=== PATIENT | female | born 1960 | race Caucasian/White ===

== ENCOUNTER 2023-01-14 22:55 | Emergency (ER) | payer OTHER, SELFPAY ==
--- NOTE | 2023-01-14 | ECG_ITS ---
Test Reason : CHEST PAIN Blood Pressure : / mmHG Vent. Rate : 064 BPM Atrial Rate : 064 BPM P-R Int : 156 ms QRS Dur : 092 ms QT Int : 450 ms P-R-T Axes : 084 027 037 degrees QTc Int : 464 ms Normal sinus rhythm RSR' or QR pattern in V1 suggests right ventricular conduction delay Cannot rule out Anterior infarct , age undetermined Abnormal ECG No previous ECGs available Referred By: Generic ED Physician Electronically Signed By:GISELE GONZALES
--- NOTE | ~2023-01-14 | XR_ITS ---
EXAMINATION: XR CHEST CLINICAL INFORMATION: Chest pain COMPARISON: None available. TECHNIQUE: Frontal view of the chest was obtained. FINDINGS: No significant abnormality is noted involving the heart, lungs, mediastinum, bony thorax or soft tissues. XR/XR chest 1V IMPRESSION: Unremarkable chest examination.
[2023-01-14 23:24] VITALS: BP 126/59; PULSE 60; RESP 20; TEMP 36.5; BMI 26.7
--- NOTE | 2023-01-14 23:51 | ED_ITS ---
HPI - Chest Pain General Chief Complaint: Chest Pain Stated Complaint: Chest pain Time Seen by Provider: 01/14/23 23:24 History of Present Illness HPI narrative: Patient is a 62-year-old female presents today with having chest pain. The chest pain is over the left side. It is sharp. It has been ongoing all day. Pain gets worse and gets better. Patient took 0.5 of Ativan to no relief. No history of diabetes, hypertension, high cholesterol, smoking. Patient does have a family history of coronary artery disease. Sister had an ID at the age of 52. Patient denies any diaphoresis. There is no leg swelling. No history of blood clots. Patient is from home. Last stress test was done 5 years ago Related Data Allergies Allergy/AdvReac Type Severity Reaction Status Date / Time No Known Allergies Allergy Verified 01/14/23 23:53 Review of Systems Review of Systems: Positive chest pain Yes all other systems are reviewed and are negative PMFSH Past Medical History Attestation statement: The following information was validated with the patient. Social History Social History Smoked in Last 30 Days: No Advance Directives: No Advance Directives Information Provided: No Physical Exam Vital Signs: Vital Signs: Last Vital Signs Temp 97.7 F 01/14/23 23:24 Pulse 54 01/15/23 02:51 Resp 18 01/15/23 02:51 BP 109/42 L 01/15/23 02:51 Pulse Ox 98 01/15/23 02:51 O2 Del Method Room Air 01/15/23 02:51 BMI result Body Mass Index 26.7 Appearance: Alert. Oriented X3. No acute distress. Eyes: Pupils equal, round and reactive to light. ENT: Pharynx normal. Neck: Normal inspection. Neck supple. No lymph nodes noted. No crepitus CVS: Normal heart rate and rhythm. Pulses normal. Normal S1 and S2 Respiratory: No respiratory distress. Breath sounds normal. No Wheezing. No rales Abdomen: Soft and nontender. No rigidity. No distention. good BS x4 Skin: Skin warm and dry. Normal skin color. Normal skin turgor. Extremities: No lower extremity edema. Neurovascular intact to all extremities. No Lacerations. No Rash Neuro: Oriented X 3. No motor deficit. No sensory deficit. Moving all extermities. No slurred speech Medical Decision Making Medical Decision Making MDM Narrative: Patient's chest pain atypical. Complaining of pain it is fairly constant. Has been ongoing for the last hour. Patient denies any diaphoresis. No coughing or congestion upper respiratory symptoms. My interpretation the patient's chest x- ray was negative for any acute evidence of pneumonia pneumothorax. Patient's troponin x2 sets were negative. In the setting of patient having continuous chest pain unlikely to have ACS. Currently in stable condition. Will discharge home Lab Data MDM Lab Attestation statement: I reviewed the patient's lab results. 01/15/23 00:04 01/15/23 00:04 Labs: Lab Results 01/15/23 01/15/23 01/15/23 Range/Units 00:04 00:04 00:04 WBC 5.0 (4.8-10.8) X10*3/uL RBC 3.69 L (4.20-5.50) X10*6/uL Hgb 12.1 (12.0-16.0) g/dl Hct 36.0 L (37.0-47.0) % MCV 97.6 (80.0-98.0) fL MCH 32.8 (27.0-33.0) pg MCHC 33.6 (31.0-35.0) g/dl RDW 12.2 (11.0-16.0) % Plt Count 272 (160-400) X10*3/uL MPV 8.2 L (9.4-12.3) fL Absolute Nucleated RBC 0.000 (0.0-0.012) X10*3/uL Nucleated RBC % (auto) 0.0 (0.0-0.2) /100WBC Sodium 139 (135-145) mmol/L Potassium 4.1 (3.3-5.1) mmol/L Chloride 105 (96-108) mmol/L Carbon Dioxide 27 (22-29) mmol/L Anion Gap 11 L (12-20) BUN 15 (9-16) mg/dL Creatinine 0.66 (0.5-1.4) mg/dL Estim Creat Clear Calc 87.1 Estimated GFR > 60 Random Glucose 104 (60-115) mg/dL Calcium 9.3 (8.4-10.2) mg/dL Total Bilirubin 0.5 (0.0-1.0) mg/dL AST 18 (5-31) U/L ALT 11 (0-31) U/L Alkaline Phosphatase 90 (39-117) U/L Troponin I High Sens < 2.7 (<3.5-17.0) ng/L Total Protein 6.8 (6.5-8.0) g/dL Albumin 3.9 (3.5-5.0) g/dL 01/15/23 Range/Units 03:00 WBC (4.8-10.8) X10*3/uL RBC (4.20-5.50) X10*6/uL Hgb (12.0-16.0) g/dl Hct (37.0-47.0) % MCV (80.0-98.0) fL MCH (27.0-33.0) pg MCHC (31.0-35.0) g/dl RDW (11.0-16.0) % Plt Count (160-400) X10*3/uL MPV (9.4-12.3) fL Absolute Nucleated RBC (0.0-0.012) X10*3/uL Nucleated RBC % (auto) (0.0-0.2) /100WBC Sodium (135-145) mmol/L Potassium (3.3-5.1) mmol/L Chloride (96-108) mmol/L Carbon Dioxide (22-29) mmol/L Anion Gap (12-20) BUN (9-16) mg/dL Creatinine (0.5-1.4) mg/dL Estim Creat Clear Calc Estimated GFR Random Glucose (60-115) mg/dL Calcium (8.4-10.2) mg/dL Total Bilirubin (0.0-1.0) mg/dL AST (5-31) U/L ALT (0-31) U/L Alkaline Phosphatase (39-117) U/L Troponin I High Sens 2.8 (<3.5-17.0) ng/L Total Protein (6.5-8.0) g/dL Albumin (3.5-5.0) g/dL Independent Interpretation I performed an independent interpretation of an: EKG and Plain X-Ray Interpretation: Sinus heart rate is 60 [place] QRS QT within normal limits is no acute ST segment elevation noted. Chest x-ray showed no acute pneumonia no pneumothorax Radiology Impression Discussion of test interpretation with radiology: I have reviewed the radiologist's reading. Discharge Plan Discharge Clinical Impression: Chest pain Patient Disposition: Home, Self-Care Instructions: Chest Pain (DC) Referrals: Sachin Keller MD [Primary Care Provider] - Atul Avitia MD [Physician] -
[2023-01-15 00:11] LABS: Hemoglobin 12.1 g/dl (12.0-16.0); Mean Corpuscular HGB Conc 33.6 g/dl (31.0-35.0); Mean Corpuscular Hemoglobin 32.8 pg (27.0-33.0); Mean Corpuscular Volume 97.6 fL (80.0-98.0); Mean Platelet Volume 8.2 fL (9.4-12.3); Platelet Count 272 X10*3/uL (160-400); Red Blood Count 3.69 X10*6/uL (4.20-5.50); Red Cell Distribution Width 12.2 % (11.0-16.0)
[2023-01-15 00:25] LABS: Alanine Aminotransferase 11 U/L (0-31); Albumin Level 3.9 g/dL (3.5-5.0); Alkaline Phosphatase 90 U/L (39-117); Anion Gap 11 (12-20); Aspartate Amino Transferase 18 U/L (5-31); Bilirubin Total 0.5 mg/dL (0.0-1.0); Blood Urea Nitrogen 15 mg/dL (9-16); Calcium 9.3 mg/dL (8.4-10.2); Carbon Dioxide 27 mmol/L (22-29); Chloride 105 mmol/L (96-108); Creatinine Clr Calc Pharmacy 87.1; Estimated Glomerular Filt Rate > 60; Glucose Random 104 mg/dL (60-115); Potassium 4.1 mmol/L (3.3-5.1); Sodium 139 mmol/L (135-145); Total Protein 6.8 g/dL (6.5-8.0)
[2023-01-15 00:31] LABS: Troponin-I High Sensitivity < 2.7 ng/L (<3.5-17.0)
[2023-01-15 02:51] VITALS: BP 109/42; PULSE 54; RESP 18; O2SAT 98
[2023-01-15 03:29] LABS: Troponin-I High Sensitivity 2.8 ng/L (<3.5-17.0)
== END 2023-01-15 04:01 | disposition home or self-care (01) ==
PROVIDERS: Emergency Provider Emergency Medicine Emergency Medical Services; PCP Internal Medicine
DX: R07.89 Other chest pain (principal); Z79.899 Other long term (current) drug therapy
CPT/HCPCS: 36415; 71045; 80053; 84484; 85027; 93005; 99283; 99285

== ENCOUNTER 2023-03-20 06:57 | Emergency (ER) | payer OTHER, SELFPAY ==
--- NOTE | ~2023-03-20 | XR_ITS ---
EXAMINATION: XR CHEST CLINICAL INFORMATION: Chest pain shortness of breath COMPARISON: Prior chest x-ray 01/14/2023 TECHNIQUE: Frontal view of the chest was obtained. FINDINGS: Linear opacity overlies the left upper lung unchanged. Lungs otherwise clear. Cardiomediastinal silhouette normal. Bone and soft tissues unremarkable. XR/XR chest 1V IMPRESSION: 1. No acute disease. 2. Linear opacity left upper lung unchanged. Likely scarring or atelectasis
--- NOTE | 2023-03-20 07:08 | ECG_ITS ---
Test Reason : CP Blood Pressure : / mmHG Vent. Rate : 065 BPM Atrial Rate : 065 BPM P-R Int : 162 ms QRS Dur : 088 ms QT Int : 458 ms P-R-T Axes : 073 052 049 degrees QTc Int : 476 ms Normal sinus rhythm RSR' or QR pattern in V1 suggests right ventricular conduction delay Abnormal ECG When compared with ECG of 14-JAN-2023 23:07, No significant change was found Referred By: Jeffrey Wilson Electronically Signed By:FUNMILAYO ANDUJAR
[2023-03-20 07:11] VITALS: BP 114/68; BP 125/53; PULSE 55; PULSE 63; RESP 16; O2SAT 100; O2SAT 97; BMI 27.5
--- NOTE | 2023-03-20 07:11 | ED_ITS ---
HPI - General Adult General Chief complaint: Dizziness Stated complaint: abd pain, dizziness Time Seen by Provider: 03/20/23 07:04 Source: patient Mode of arrival: EMS Limitations: no limitations History of Present Illness HPI narrative: This is 62 years old of female presented to the emergency department with mult iple somatic complaints including abdominal pain dizziness generalized malaise she states that she feels shaky all over. Symptoms started early this morning. Denies any fever chills chest pain shortness of breath vomiting or diarrhea. She has history of generalized anxiety disorder she takes sertraline. Onset (ago): hour(s) (3) Radiation: non-radiation Severity: moderate Pain Consistency: constant Relieving factors: none Exacerbating factors: none Associated symptoms: denies other symptoms Related Data Allergies Allergy/AdvReac Type Severity Reaction Status Date / Time No Known Allergies Allergy Verified 01/14/23 23:53 Review of Systems Review of Systems: Yes all other systems are reviewed and are negative ENT: Reports system reviewed and no additional complaints, except as documented Cardiovascular: Cardiovascular: Denies palpitations and Denies dyspnea on exertion Respiratory: Respiratory: Denies dyspnea on exertion Gastrointestinal: Gastrointestinal: Reports no additional gastrointestinal complaints Neurologic: Reports system reviewed and no additional complaints, except as documented Endocrine: Endocrine: Denies palpitations PMFSH Past Medical History PMFSH Narrative: Anxiety disorder, history of atypical chest pain Social History Social History Smoked in Last 30 Days: No Use of substances other than those prescribed or required for medical reasons: No Advance Directives: No Advance Directives Information Provided: Yes Physical Exam ED Vital Signs: Vital Signs - 24 hr 03/20/23 07:11 03/20/23 10:29 Pulse Rate 55 65 Respiratory Rate 16 15 Blood Pressure 125/53 L 112/51 L Pulse Oximetry 97 97 Oxygen Delivery Method Room Air Room Air BMI result Body Mass Index 27.5 Const General: cooperative, healthy appearing, comfortable, no acute distress, well developed, alert, awake and Physically active Nutritional Appearance: average body habitus Orientation/consciousness: patient oriented x3 Limitations: no limitations HENMT Head: Yes normal to inspection Face and sinus: Yes normal facial exam Throat: Yes posterior oropharynx normal Neck Neck: Yes normal visual inspection Chest Chest palpation & inspection: normal inspection of the chest Resp Effort & Inspection: normal respiratory effort Auscultation: clear to auscultation bilaterally Cardio Jugular venous distension: no JVD Rate: regular rate Rhythm: regular rhythm GI Inspection: Yes normal to inspection Palpation (GI): Soft to palpation, not firm, nontender and no guarding Percussion: Yes normal to percussion Skin General skin exam: no rashes or lesions noted Lesions: no lesions Rashes: no rashes Neuro General: patient oriented x3 Coordination: [id number] test normal Romberg Test: Negative Course Reevaluation(s) Reevaluation #1: Patient was re-examined at this time with dramatic improvement after lorazepam. She has no complaint at this time labs okay she can be discharged home Time: 10:07 Medications Administered Discontinued Medications Generic Name Dose Route Start Last Admin Trade Name Freq PRN Reason Stop Dose Admin Sodium Chloride 1,000 mls @ 999 mls/hr 03/20/23 07:45 03/20/23 10:25 Ns IVCONT 03/20/23 08:45 Infused .Q1H1M GM Infusion Lorazepam 0.5 mg 03/20/23 07:08 03/20/23 07:25 Lorazepam 2 Mg/Ml Vial IVPUSH 03/20/23 07:09 0.5 mg ONCE ONE Administration Medical Decision Making Medical Decision Making [facility] Narrative: Patient presenting dizziness weakness symptoms completely resolved of lorazepam clinical picture was consistent with anxiety Differential Diagnosis Differential Diagnoses: The differential diagnosis associated with the presentation includes viral illness/panick attack/ colitis/diverticulitis Admission/Observation Consideration of admission/observation: Escalation of care including admi ssion/observation considered Lab Data [facility] Lab Attestation statement: I reviewed the patient's lab results. 03/20/23 07:37 Labs: Lab Results 03/20/23 03/20/23 03/20/23 Range/Units 07:37 07:37 07:37 WBC 4.1 L (4.8-10.8) X10*3/uL RBC 3.89 L (4.20-5.50) X10*6/uL Hgb 12.9 (12.0-16.0) g/dl Hct 38.0 (37.0-47.0) % MCV 97.7 (80.0-98.0) fL MCH 33.2 H (27.0-33.0) pg MCHC 33.9 (31.0-35.0) g/dl RDW 12.1 (11.0-16.0) % Plt Count 309 (160-400) X10*3/uL MPV 8.4 L (9.4-12.3) fL Immature Gran % (Auto) 0.0 (0.0-0.4) % Neut % (Auto) 39.7 L (45-73) % Lymph % (Auto) 44.3 H (20-40) % [place] % (Auto) 12.6 H (2-11) % Eos % (Auto) 2.2 (0-4) % Baso % (Auto) 1.2 (0-2) % Lymph # (Auto) 1.8 (1.2-4.9) X10*3/uL [place] # (Auto) 0.5 (0.1-1.2) X10*3/uL Eos # (Auto) 0.1 (0.0-0.4) X10*3/uL Baso # (Auto) 0.1 (0.0-0.2) X10*3/uL Abs Immat Gran (auto) 0.00 (0.00-0.03) X10*3/uL Absolute Neuts (auto) 1.6 L (2.0-8.3) x10*3/uL Absolute Nucleated RBC 0.000 (0.0-0.012) X10*3/uL Nucleated RBC % (auto) 0.0 (0.0-0.2) /100WBC Sodium 140 (135-145) mmol/L Potassium 4.6 (3.3-5.1) mmol/L Chloride 105 (96-108) mmol/L Carbon Dioxide 28 (22-29) mmol/L Anion Gap 12 (12-20) BUN 13 (9-16) mg/dL Creatinine 0.71 (0.5-1.4) mg/dL Estim Creat Clear Calc 79.1 Estimated GFR > 60 Random Glucose 101 (60-115) mg/dL Calcium 9.6 (8.4-10.2) mg/dL Total Bilirubin 0.6 (0.0-1.0) mg/dL AST 20 (5-31) U/L ALT 16 (0-31) U/L Alkaline Phosphatase 86 (39-117) U/L Troponin I High Sens < 2.7 (<3.5-17.0) ng/L Total Protein 7.0 (6.5-8.0) g/dL Albumin 4.1 (3.5-5.0) g/dL Independent Interpretation I performed an independent interpretation of an: EKG and Plain X-Ray Interpretation: Normal sinus rhythm a rate [address]-T changes normal cxr Radiology Impression Discussion of test interpretation with radiology: I have reviewed the radiologist's reading. Radiologist Impression: EXAMINATION: XR CHEST CLINICAL INFORMATION: Chest pain shortness of breath COMPARISON: Prior chest x-ray 01/14/2023 TECHNIQUE: Frontal view of the chest was obtained. FINDINGS: Linear opacity overlies the left upper lung unchanged. Lungs otherwise clear. Cardiomediastinal silhouette normal. Bone and soft tissues unremarkable. XR/XR chest 1V IMPRESSION: 1.? No acute disease. 2.? Linear opacity left upper lung unchanged. Likely scarring or atelectasis ? Dictated By: Silvano Blanchard MD Signed By: <Electronically signed by Silvano Blanchard MD in OV> 03/20/23 0753 Discharge Plan Discharge Clinical Impression: Anxiety Patient Disposition: Home, Self-Care Instructions: Anxiety (ED) Additional Instructions: Follow-up with your primary care physician return if you worse any concern Referrals: PhysicianWarren [Primary Care Provider] - 2 days Interventions: ED Discharge Assessment Last Done: 03/20/23 10:35 Discharge Date/Time: 03/20/23 10:36
[2023-03-20] MEDS: LORazepam 2 MG/ML VIAL 0.5 MG IVPUSH (07:25)
[2023-03-20 07:41] LABS: MANUAL DIFF FLAG NO
[2023-03-20] MEDS: 0.9 % Sodium Chloride 1,000 ML 999 ML IVCONT (07:51)
--- NOTE | 2023-03-20 07:51 | PC.NURSE ---
pt axox4, vss, sinus cristian on monitor 51 bpm, sats 98% RA, skin wpd, neuros intact. pt arrived via ems; reports LEUNG onset last night; dizziness/upper abd. pain onset 0600 today. pt reports feeling jittery/shaky; hx anxiety/panic attacks states this is different. +bs x 4. no abd. distention/tenderness noted. cap refill <3 secs. respirations even and unlabored. IVF infusing, labs drawn; awaiting results. pt denies questions/concerns at this time. call guy within reach.
[2023-03-20 07:57] LABS: Basophils Absolute Auto 0.1 X10*3/uL (0.0-0.2); Basophils Percent Auto 1.2 % (0-2); Eosinophils Absolute Auto 0.1 X10*3/uL (0.0-0.4); Eosinophils Percent Auto 2.2 % (0-4); Hemoglobin 12.9 g/dl (12.0-16.0); Lymphocytes Absolute Auto 1.8 X10*3/uL (1.2-4.9); Lymphocytes Percent Auto 44.3 % (20-40); Mean Corpuscular HGB Conc 33.9 g/dl (31.0-35.0); Mean Corpuscular Hemoglobin 33.2 pg (27.0-33.0); Mean Corpuscular Volume 97.7 fL (80.0-98.0); Mean Platelet Volume 8.4 fL (9.4-12.3); Monocytes Absolute Auto 0.5 X10*3/uL (0.1-1.2); Monocytes Percent Auto 12.6 % (2-11); Neutrophils Absolute Auto 1.6 x10*3/uL (2.0-8.3); Neutrophils Percent Auto 39.7 % (45-73); Platelet Count 309 X10*3/uL (160-400); Red Blood Count 3.89 X10*6/uL (4.20-5.50); Red Cell Distribution Width 12.1 % (11.0-16.0); White Blood Count 4.1 X10*3/uL (4.8-10.8)
[2023-03-20 08:00] LABS: Alanine Aminotransferase 16 U/L (0-31); Albumin Level 4.1 g/dL (3.5-5.0); Alkaline Phosphatase 86 U/L (39-117); Anion Gap 12 (12-20); Aspartate Amino Transferase 20 U/L (5-31); Bilirubin Total 0.6 mg/dL (0.0-1.0); Blood Urea Nitrogen 13 mg/dL (9-16); Calcium 9.6 mg/dL (8.4-10.2); Carbon Dioxide 28 mmol/L (22-29); Chloride 105 mmol/L (96-108); Creatinine Clr Calc Pharmacy 79.1; Estimated Glomerular Filt Rate > 60; Glucose Random 101 mg/dL (60-115); Potassium 4.6 mmol/L (3.3-5.1); Sodium 140 mmol/L (135-145)
[2023-03-20 08:03] LABS: Troponin-I High Sensitivity < 2.7 ng/L (<3.5-17.0)
[2023-03-20 10:29] VITALS: BP 112/51; PULSE 65; RESP 15; O2SAT 97
== END 2023-03-20 10:36 | disposition home or self-care (01) ==
PROVIDERS: Emergency Provider Emergency Medicine
DX: F41.9 Anxiety disorder, unspecified (principal); R10.9 Unspecified abdominal pain; R07.9 Chest pain, unspecified; R06.02 Shortness of breath
CPT/HCPCS: 36415; 71045; 80053; 84484; 85025; 93005; 96361; 96374; 99284; 99285; J2060

== ENCOUNTER 2023-07-08 02:13 | Emergency (ER) | payer OTHER, SELFPAY ==
--- NOTE | ~2023-07-08 | XR_ITS ---
EXAMINATION: XR ABDOMEN KUB CLINICAL INDICATION: Constipation COMPARISON: None available. TECHNIQUE: AP view of the abdomen. FINDINGS: The bowel gas pattern is normal with no evidence of ileus or obstruction. Large stool throughout the left colon and rectum. No unusual soft tissue calcifications are noted. The bones are unremarkable. XR/XR KUB IMPRESSION: * Moderate to severe constipation, predominantly left colonic. * No evidence of obstruction.
[2023-07-08 02:17] VITALS: BP 130/53; PULSE 72; RESP 18; TEMP 36.8; O2SAT 97; BMI 27.6
[2023-07-08 02:38] LABS: Basophils Percent Auto 0.9 % (0-2); Eosinophils Absolute Auto 0.1 X10*3/uL (0.0-0.4); Eosinophils Percent Auto 1.8 % (0-4); Hematocrit 39.2 % (37.0-47.0); Hemoglobin 13.4 g/dl (12.0-16.0); Imm Gran Abs Auto 0.01 X10*3/uL (0.00-0.03); Imm Gran Pct Auto 0.2 % (0.0-0.4); Lymphocytes Absolute Auto 1.5 X10*3/uL (1.2-4.9); Lymphocytes Percent Auto 34.8 % (20-40); MANUAL DIFF FLAG NO; Mean Corpuscular HGB Conc 34.2 g/dl (31.0-35.0); Mean Corpuscular Hemoglobin 34.1 pg (27.0-33.0); Mean Corpuscular Volume 99.7 fL (80.0-98.0); Mean Platelet Volume 8.2 fL (9.4-12.3); Monocytes Absolute Auto 0.5 X10*3/uL (0.1-1.2); Monocytes Percent Auto 12.2 % (2-11); Neutrophils Absolute Auto 2.2 x10*3/uL (2.0-8.3); Neutrophils Percent Auto 50.1 % (45-73); Platelet Count 301 X10*3/uL (160-400); Red Blood Count 3.93 X10*6/uL (4.20-5.50); Red Cell Distribution Width 11.9 % (11.0-16.0); White Blood Count 4.4 X10*3/uL (4.8-10.8)
--- NOTE | 2023-07-08 02:38 | ED.ABDPAIN ---
HPI - Abdominal Pain General Chief Complaint: Abdominal Pain Stated Complaint: no bowel movement in 8days Time Seen by Provider: 07/08/23 02:33 Source: patient Mode of arrival: ambulatory Limitations: no limitations History of Present Illness HPI narrative: Patient comes to the emergency room complaining of anal pain/bleeding hemorrhoids for 4 days and constipation for 1 week. Patient states that the hemorrhoids have gotten worse due to significant straining. Patient states that about 10 days ago, patient had 3 days of constant diarrhea, did not take anything for diarrhea, self resolved. Then patient had constipation. Patient states that she has not able to move her bowels in over 8 days and now she feels very bloated and very uncomfortable. Patient denies nausea or vomiting, patient able to pass gas, no fever chills, no UTI symptoms Related Data Previous Rx's Medication Instructions Recorded sodium phosphates 19 gram-7 118 ml [place] DAILY PRN constipation 07/08/23 gram/118 mL enema (Fleet Enema) #133 mL Allergies Allergy/AdvReac Type Severity Reaction Status Date / Time No Known Allergies Allergy Verified 07/08/23 02:38 Review of Systems Review of Systems Constitutional : No Weight loss, No Fever, No Chills, No Night Sweats, No Fatigue, No Malaise ENT/Mouth : No Hearing loss, No Ear Pain, No Nasal Congestion, No Sinus Pain, No Hoarseness, No sore throat, No Rhinorrhea, No Swallowing Difficulty Eyes: No Eye Pain, No Swelling, No Redness, No Foreign Body, No Discharge, No Vision Changes Cardiovascular : No Chest Pain, No SOB, No Dyspnea on Exertion, No Orthopnea, No Edema, No Palpitations Respiratory : No Cough, No Sputum, No Wheezing, No Smoke Exposure, No Dyspnea Gastrointestinal : No Nausea, No Vomiting, diarrhea self-resolved a week ago, now complaining of constipation, complaining of diffuse abdominal discomfort , c/o external hemorrhoids Genitourinary : no irregular bleeding, No Dysuria, No Urinary Frequency, No Hematuria, No Urinary Incontinence, No Urgency, No Flank Pain, No Urinary Flow Changes, No Hesitancy Musculoskeletal : No joint pain, No Myalgias, No Joint Swelling Skin : No Skin Lesions, No rash Neuro : No Weakness, No Numbness, No Paresthesias, No Loss of Consciousness, No Dizziness, No Headache Psych : No Anxiety/Panic, No Depression, No SI/HI/AH/VH, No Social Issues, Heme/Lymph: No Bruising, No Bleeding,No Lymphadenopathy Endocrine : No Polyuria, No Polydipsia, No Temperature Intolerance [facility] Social History Social History Alcohol intake: current Alcohol intake frequency: holidays/special occasions only Smoked in Last 30 Days: No Use of substances other than those prescribed or required for medical reasons: No Advance Directives: No Advance Directives Information Provided: Yes Patient : No Physical Exam ED Vital Signs: Vital Signs - 24 hr 07/08/23 02:17 Temperature 98.2 F Pulse Rate 72 Respiratory Rate 18 Blood Pressure 130/53 L Pulse Oximetry 97 Oxygen Delivery Method Room Air BMI result Body Mass Index 27.6 Const Other: Appearance: Alert. Oriented X3. No acute distress. Eyes: Pupils equal, round and reactive to light. ENT: Pharynx normal. Neck: Normal inspection. Neck supple. No lymph nodes noted. No crepitus CVS: Normal heart rate and rhythm. Pulses normal. Normal S1 and S2 Respiratory: No respiratory distress. Breath sounds normal. No Wheezing. No rales Abdomen: Soft and nontender. No rigidity. No distention. On exam, patient does have external hemorrhoids but they are not thrombosed or bleeding Skin: Skin warm and dry. Normal skin color. Normal skin turgor. Extremities: No lower extremity edema. No Lacerations. No Rash Neuro: Oriented X 3. No motor deficit. No sensory deficit. Moving all extremities. No slurred speech. CN 2 through 12 grossly intact Psych: calm, cooperative, teary Course Course Course Narrative: -labs and KUB pending -if KUB + constipation, we'll try fleet enema -applying 5% lidocaine topical to anus for pain relief Medical Decision Making Medical Decision Making [facility] Narrative: -patient had 2 bowel movements, overall patient is feeling better. -my interpretation of KUB, no signs of small-bowel obstruction -patient was given 5% lidocaine topical for symptomatic relief during bowel movements Differential Diagnosis Differential Diagnoses: The differential diagnosis associated with the presentation includes (Constipation, hemorrhoids, SBO) Lab Data MDM Lab Attestation statement: I reviewed the patient's lab results. 07/08/23 02:32 07/08/23 02:32 Labs: Lab Results 07/08/23 Range/Units 02:32 WBC 4.4 L (4.8-10.8) X10*3/uL RBC 3.93 L (4.20-5.50) X10*6/uL Hgb 13.4 (12.0-16.0) g/dl Hct 39.2 (37.0-47.0) % MCV 99.7 H (80.0-98.0) fL MCH 34.1 H (27.0-33.0) pg MCHC 34.2 (31.0-35.0) g/dl RDW 11.9 (11.0-16.0) % Plt Count 301 (160-400) X10*3/uL MPV 8.2 L (9.4-12.3) fL Immature Gran % (Auto) 0.2 (0.0-0.4) % Neut % (Auto) 50.1 (45-73) % Lymph % (Auto) 34.8 (20-40) % [place] % (Auto) 12.2 H (2-11) % Eos % (Auto) 1.8 (0-4) % Baso % (Auto) 0.9 (0-2) % Lymph # (Auto) 1.5 (1.2-4.9) X10*3/uL [place] # (Auto) 0.5 (0.1-1.2) X10*3/uL Eos # (Auto) 0.1 (0.0-0.4) X10*3/uL Baso # (Auto) 0.0 (0.0-0.2) X10*3/uL Abs Immat Gran (auto) 0.01 (0.00-0.03) X10*3/uL Absolute Neuts (auto) 2.2 (2.0-8.3) x10*3/uL Absolute Nucleated RBC 0.000 (0.0-0.012) X10*3/uL Nucleated RBC % (auto) 0.0 (0.0-0.2) /100WBC Sodium 139 (135-145) mmol/L Potassium 4.1 (3.3-5.1) mmol/L Chloride 102 (96-108) mmol/L Carbon Dioxide 29 (22-29) mmol/L Anion Gap 12 (12-20) BUN 10 (9-16) mg/dL Creatinine 0.78 (0.5-1.4) mg/dL Estim Creat Clear Calc 71.2 Estimated GFR > 60 Random Glucose 130 H (60-115) mg/dL Calcium 9.8 (8.4-10.2) mg/dL Total Bilirubin 0.7 (0.0-1.0) mg/dL AST 18 (5-31) U/L ALT 12 (0-31) U/L Alkaline Phosphatase 96 (39-117) U/L Total Protein 7.7 (6.5-8.0) g/dL Albumin 4.4 (3.5-5.0) g/dL Lipase 15 (8-78) U/L Independent Interpretation I performed an independent interpretation of an: Plain X-Ray Radiology Impression Discussion of test interpretation with radiology: I have reviewed the radiologist's reading. Radiologist Impression: FINDINGS: The bowel gas pattern is normal with no evidence of ileus or obstruction. Large stool throughout the left colon and rectum. No unusual soft tissue calcifications are noted. The bones are unremarkable. XR/XR KUB IMPRESSION: * Moderate to severe constipation, predominantly left colonic. * No evidence of obstruction. Medications Administered Discontinued Medications Generic Name Dose Route Start Last Admin Trade Name Freq PRN Reason Stop Dose Admin Lidocaine 1 appl 07/08/23 02:37 07/08/23 03:25 Lidocaine 5 % Ointment 35 Gm TOPICAL 07/08/23 02:38 1 appl ONCE ONE Administration Protocol Sodium Biphosphate/Sodium Phosphate 133 ml 07/08/23 02:38 07/08/23 03:51 Sodium Phosphate,[place]es-Dibasic 133 Ml Enema [place] 07/08/23 02:39 133 ml ONCE ONE Administration Discharge Plan Discharge Clinical Impression: Constipation Patient Disposition: Home, Self-Care Instructions: Constipation (ED), Hemorrhoids (ED) Additional Instructions: Apply a generous amount of 5% lidocaine 15 minutes before a bowel movement. Please follow-up with your primary care physician tomorrow. If you have any worsening or new symptoms, please return to the emergency room or call 911 Prescriptions: New Fleet Enema 19-7 gram/118 mL enema 118 ml [place] DAILY PRN (Reason: constipation) Qty: 133 2RF
--- OUTSIDE RECORDS SUMMARY | 2023-07-08 03:01 | XMS_ITS | Continuity of Care Document ---
Author Name Unknown Organization [facility] Address [address] [place] [address]- Care Team Providers Care [employer] Name Role Phone Sachin Keller MD Primary Care Physician [place] [facility] [place]14[place] - 01/20/[address] [id number] Discharge Disposition: A-D/C Home Attending Physician: Sachin Keller MD Admitting Physician: Sachin Keller MD Referring Physician: Marshall Godfrey MD Allergies, Adverse Reactions, Alerts No Known Allergies Immunizations Given and Recorded Vaccine Date Status Refusal Reason SARS-CoV-2 (COVID-19) mRNA BNT-162b2 vac 10/01/20 Given SARS-CoV-2 (COVID-19) mRNA BNT-162b2 vac 09/10/20 Given Medications B-12 1000 mcg oral tablet 1 tablet = 1,000 mcg, By Mouth, Daily, 0 Refills, Maintenance, 11/16/19 11:00:00 EDT Start Date: 11/16/19 Status: Ordered duloxetine 60 mg oral enteric coated capsule 1 capsule = 60 mg, By Mouth, Daily, do not crush or chew, 0 Refills, Maintenance, 11/16/19 10:59:00EDT, CR Capsule Start Date: 11/16/19 Status: Ordered ibuprofen 800 mg oral tablet 800 mg, 1, tablet, By Mouth, 3 times a day, # 90 tablet, Refills 0, Maintenance, 11/16/19 10:59:00 EDT Start Date: 11/16/19 Status: Ordered Multi Vitamin+ 1 tablet, By Mouth, Daily, 0 Refills, Maintenance, 08/07/18 10:39:52 EST Start Date: 08/07/18 Status: Ordered pantoprazole 40 mg oral delayed release tablet 1 tablet = 40 mg, By Mouth, Daily, # 30 tablet, 0 Refills, Maintenance, 11/16/19 10:59:00 EDT, EC Tablet Start Date: 11/16/19 Status: Ordered
--- OUTSIDE RECORDS SUMMARY | 2023-07-08 03:01 | XMS_ITS | Continuity of Care Document ---
Author Name Unknown Organization [facility] Address [address] [place] [address]- Care Team Providers Care Real Estate Recruiter Name Role Phone Sachin Keller MD Primary Care Physician [phone] [facility] ACCT R [id number] Date(s): 02/01/22 - 03/06/[address] [address] Attending Physician: Sachin Keller MD Admitting Physician: Sachin Keller MD Allergies, Adverse Reactions, Alerts No Known [...]
--- OUTSIDE RECORDS SUMMARY | 2023-07-08 03:01 | XMS_ITS | Continuity of Care Document ---
Author Name Unknown Organization [facility] Address [address] [place] [id number]- Care Team Providers Care Retail Maintenance Technician Name Role Phone Sachin Keller MD Primary Care Physician Encounter [facility] Date(s): 01/10/20 - 01/10/[address] [address]- [facility] Encounter Diagnosis Chest pain(Final) - 01/10/20 Discharge Disposition: A-D/C Home Attending Physician: Levi Diaz MD Admitting Physician: Levi Diaz MD Referring Physician: Not on Staff, Referring MD Allergies, Adverse Reactions, Alerts Substance Reaction Severity Status NKA Active Medications B-12 1000 mcg oral tablet 1 [...] EC Tablet Start Date: 11/16/19 Status: Ordered Results Radiology Reports * Exam Date Time Procedure Performing Provider Status 01/10/20 1:48 PM Chest 2 Views Frontal and Lat Fatmata Tyler; Auth (Verified) Notes: (Chest 2 Views Frontal and Lat) Reason For Exam: Angina RESULT: Chest 2 Views Frontal and Lat Chest 2 Views Frontal and Lat Refer to EMR; Reason: Angina; Clinical Question(s): CHF; Hx of Present Illness: pt reports midsternal epigastric CP radiating to left anterior chest, non reproducible. Relieved with Nitro. dizziness after fentanyl administered.; Other Objective Findings: AOx3, answers appropriately. COMPARISON: None. FINDINGS: LINES AND TUBES: None. LUNGS AND PLEURA: Clear lungs. Normal pulmonary vascularity. No pleural effusion. No pneumothorax. HEART, MEDIASTINUM AND NANDO: Heart is normal in size. Normal mediastinal and hilar contour. BONES AND SOFT TISSUES: No acute abnormality. IMPRESSION: No acute abnormality. WSN: [id number] Ordering Physician: Marshall Almaraz Dictated By: Jason Bobo DO Dictated Date/Time: 01/10/20 1:50 pm Reviewed By: Jason Bobo DO Signed By: Jason Bobo DO Signed Date/Time: 01/10/20 1:50 pm Transcribed By: ERIKA Transcribed Date/Time: 01/10/20 1:50 pm Vital Signs Most recent to oldest [Reference Range]: 1 2 3 Oxygen Saturation [94-100 %] 98 % (01/10/20 7:28 PM) 99 % (01/10/20 7:00 PM) 96 % (01/10/20 5:54 PM) Pulse Rate [55-90 bpm] 68 bpm (01/10/20 7:28 PM) 67 bpm (01/10/20 7:00 PM) 75 bpm (01/10/20 5:54 PM) Blood Pressure [90-138/55-84 mm Hg] 127/72mm Hg (01/10/20 7:28 PM) 106/56mm Hg (01/10/20 7:00 PM) 114/59mm Hg (01/10/20 5:54 PM) Respiratory Rate [16-30 br/min] 19 br/min (01/10/20 7:28 PM) 15 br/min *L* (01/10/20 7:00 PM) 18 br/min (01/10/20 5:54 PM) Temperature [96.8-100.4 DegF] 98.4 DegF (01/10/20 7:28 PM) 98.3 DegF (01/10/20 7:00 PM) 98.7 DegF (01/10/20 4:12 PM) Liters per Minute 0 L/min (01/10/20 4:12 PM) 0 L/min (01/10/20 1:07 PM) Mode of Delivery (Oxygen) Room air (01/10/20 7:28 PM) Room air (01/10/20 7:00 PM) Room air (01/10/20 5:54 PM) Blood pressure sites Arm, right (01/10/20 7:28 PM) Arm, right (01/10/20 7:00 PM) Arm, right (01/10/20 5:54 PM) Temperature Route Oral (01/10/20 7:28 PM) Oral (01/10/20 7:00 PM) Oral (01/10/20 4:12 PM)
--- OUTSIDE RECORDS SUMMARY | 2023-07-08 03:01 | XMS_ITS | Continuity of Care Document ---
Author Name Unknown Organization [facility] Address [address] [place] [address]- Care Team Providers Care Syrup Maker Cook Name Role Phone Sachin Keller MD Primary Care Physician Encounter [facility] ACCT R [id number] Date(s): 03/16/22 - 04/15/[address] [address] Attending Physician: Rudolph Bucio Admitting Physician: AdmRudolph greene Referring Physician: AdmtrRudolph Allergies, Adverse Reactions, Alerts No Known Allergies [...] EC Tablet Start Date: 11/16/19 Status: Ordered Care Team Personnel Name: Sachin Keller MD Address: [address] [place], [place] [address]
--- OUTSIDE RECORDS SUMMARY | 2023-07-08 03:01 | XMS_ITS | Continuity of Care Document ---
Author Name Unknown Organization [facility] Address [address] [place] [address]- Care Team Providers Care Quality Audit Representative Name Role Phone Sachin Keller MD Primary Care Physician [phone] Encounter [facility] ACCT R [id number] Date(s): 12/24/21 - 01/23/[address] [address]- Attending Physician: Rudolph Bucio Admitting Physician: AdmRudolph [...]
--- OUTSIDE RECORDS SUMMARY | 2023-07-08 03:01 | XMS_ITS | Continuity of Care Document ---
Author Name Unknown Organization [facility] Address [address] [place] [address]- Care Team Providers Care Instructor Watch Assembly Name Role Phone Sachin Keller MD Primary Care Physician [phone] Encounter [facility] Date(s): 02/01/22 - 05/11/[address] [address]- Encounter Diagnosis Cervicalgia(Final) - Discharge Disposition: A-D/C Home Attending Physician: Marshall Godfrey MD Admitting Physician: Marshall Godfrey MD Referring Physician: Marshall Godfrey MD Allergies, [...] EC Tablet Start Date: 11/16/19 Status: Ordered Patient Care team information Personnel Name: Sachin Keller MD Address: Address: [address] [place] [address]
[2023-07-08 03:03] LABS: Alanine Aminotransferase 12 U/L (0-31); Albumin Level 4.4 g/dL (3.5-5.0); Alkaline Phosphatase 96 U/L (39-117); Anion Gap 12 (12-20); Aspartate Amino Transferase 18 U/L (5-31); Bilirubin Total 0.7 mg/dL (0.0-1.0); Blood Urea Nitrogen 10 mg/dL (9-16); Calcium 9.8 mg/dL (8.4-10.2); Carbon Dioxide 29 mmol/L (22-29); Chloride 102 mmol/L (96-108); Creatinine Clr Calc Pharmacy 71.2; Estimated Glomerular Filt Rate > 60; Glucose Random 130 mg/dL (60-115); Lipase 15 U/L (8-78); Potassium 4.1 mmol/L (3.3-5.1); Sodium 139 mmol/L (135-145); Total Protein 7.7 g/dL (6.5-8.0)
[2023-07-08] MEDS: Lidocaine 5 % Ointment 35 GM 1 APPL TOPICAL (03:25)
[2023-07-08] MEDS: Sodium Phosphate,Mono-Dibasic 133 ML ENEMA PR (03:51)
--- NOTE | 2023-07-08 04:28 | PC.NURSE ---
Pt A&Ox3, reports lower ABD pain and rectal pain. Reports no BM in 8 days with no effectiveness from home med taken at home. Pt given enema, tolerated well. Pt ambulated to independently with steady gait. Reports having a small BM.
[2023-07-08 05:50] VITALS: BP 123/56; PULSE 63; RESP 16; O2SAT 97
== END 2023-07-08 05:52 | disposition home or self-care (01) ==
PROVIDERS: Emergency Provider Emergency Medicine; PCP Internal Medicine
DX: K64.9 Unspecified hemorrhoids (principal); K59.00 Constipation, unspecified; Z79.899 Other long term (current) drug therapy
CPT/HCPCS: 36415; 74018; 80053; 83690; 85025; 99283; 99284

== ENCOUNTER 2024-12-19 08:10 | Emergency (ER) | payer OTHER, MEDICARE, SELFPAY ==
[2024-12-19] VITALS (7 sets, daily range): BP systolic 100–123; BP diastolic 47–62; PULSE 60–89; RESP 16–18; TEMP 36.8–36.9; O2SAT 96–98; BMI 26.1
--- NOTE | ~2024-12-19 | CT_ITS ---
EXAMINATION: CT HEAD WITHOUT CONTRAST CLINICAL INFORMATION: Altered mental status, confusion. COMPARISON: None available. TECHNIQUE: Contiguous axial imaging was performed from the skull base to vertex without intravenous administration of contrast. This CT examination was performed using dose optimization techniques as appropriate, variously including the following: *Automated exposure control *Adjustment of mA and/or kV according to patient size (this includes techniques or standardized protocols for targeted exams where dose is matched to indication/reason for exam; i.e. extremities or head) *Use of iterative reconstruction technique FINDINGS: There is no evidence of intracranial hemorrhage or extra-axial fluid collection. There is no mass effect, or edema. No CT evidence of acute territorial infarct. Ventricles, sulci, and cisterns are normal in size and configuration for patient age. No hydrocephalus. No midline shift. Negative hyperdense MCA sign. Negative insular ribbon sign. No significant white matter abnormality. Normal pituitary. Globes and orbital contents image normally. No extracranial soft tissue abnormalities. The paranasal sinuses, mastoid air cells, and tympanic cavities are normally aerated. No suspicious bony abnormalities. There are no acute fractures evident. CT/CT head/brain wo IV con IMPRESSION: No acute intracranial abnormality. Electronically signed by: Jacob Reyes MD 12/19/2024 09:35 AM EDT
--- NOTE | ~2024-12-19 | XR_ITS ---
EXAMINATION: XR CHEST 2 VIEWS HISTORY: cough COMPARISON: Comparison is made with the prior examination dated 03/20/2023. FINDINGS: PA and lateral views of the chest are submitted. The lungs are expanded and clear. There is no pleural effusion, pneumothorax, or pulmonary vascular congestion. The heart is normal in size. The bones are intact. XR/XR chest 2V IMPRESSION: No acute cardiopulmonary abnormality. Electronically signed by: Anurag Gaines MD 12/19/2024 08:59 AM EDT
--- NOTE | 2024-12-19 08:21 | ED_ITS ---
HPI - Weakness General Chief complaint: Upper Respiratory Symptoms Stated complaint: SOB, lightheaded, body aches Time Seen by Provider: 12/19/24 09:54 Source: patient Mode of arrival: ambulatory Limitations: no limitations History of Present Illness ED Provider: Anneliese Scott PA-C HPI Narrative: Patient is a 64 year old assigned female at with a history of GERD and carpal tunnel syndrome s/p release presenting to the emergency department today with weakness, epigastric pain, lightheadedness, cough, and sore throat. Patient states that over the last 4 days she has been feeling weak with epigastric pain, lightheadedness, a cough, and a sore throat. Patient denies any dizziness, abdominal pain, nausea, vomiting, fever, chills, blurry vision, double vision, loss of vision, chest pain, difficulty breathing, shortness of breath, back pain, night sweats, pain with urination, increased urinary frequency, increased urinary urgency, blood in her urine or stool, syncope or a near syncopal episode, recent trauma or falls, bowel incontinence, bladder incontinence, or any other complaints at this time. Onset (ago): day(s) (4) Relieving factors: none Exacerbating factors: none Related Data Previous Rx's ?Medication ?Instructions ?Recorded sodium phosphates 19 gram-7 118 ml CA DAILY PRN constipation 07/08/23 gram/118 mL enema (Fleet Enema) #133 mL Allergies Allergy/AdvReac Type Severity Reaction Status Date / Time No Known Allergies Allergy Verified 12/19/24 08:25 Review of Systems 2 Constitutional: Constitutional: Reports no additional constitutional complaints, Denies chills, Denies fever(s), Denies night sweats and Reports weakness Eyes: Eyes: Reports no additional eye complaints, Denies blurry vision, Denies change in vision, Denies diplopia, Denies eye discharge, Denies loss of vision and Denies eye pain ENT: Denies dizziness and Reports sore throat Cardiovascular: Cardiovascular: Reports no additional cardiovascular complaints, Denies chest pain, Reports lightheadedness, Denies Loss of Consciousness and Denies dyspnea Respiratory: Respiratory: Reports no additional respiratory complaints, Reports cough and Denies dyspnea Gastrointestinal: Gastrointestinal: Reports no additional gastrointestinal complaints, Denies melena, Denies hematochezia, Denies change in bowel habits and Denies change in stool character Comments: epigastric pain Genitourinary: Genitourinary: Denies hematuria, Denies urinary frequency, Denies dysuria, Denies urinary incontinence, Denies urinary hesitancy and Denies urinary urgency Musculoskeletal: Musculoskeletal: Reports no additional musculoskeletal complaints, Denies numbness and Denies tingling Neurologic: Denies dizziness, Denies loss of vision, Denies numbness, Denies tingling and Reports weakness Psychiatric: Psychiatric: Reports no additional psychiatric complaints Endocrine: Endocrine: Reports no additional endocrine complaints Hematologic/Lymphatic: Hematologic/Lymphatic: Reports no additional hematologic/lymphatic complaints Allergic/Immunologic: Allergic/Immunologic: Reports no additional allergic/immunologic complaints [facility] Past Medical History Attestation statement: The following information was validated with the patient. Source: old records reviewed and nursing notes reviewed Social History Social History Alcohol intake: current Alcohol intake frequency: holidays/special occasions only Smoked in Last 30 Days: No Use of substances other than those prescribed or required for medical reasons: No Advance Directives: No Advance Directives Information Provided: Yes Do you have a plan to hurt others: No Plan Physical Exam 2 Vital Signs: Vital Signs: Last Vital Signs Temp 98.4 F 12/19/24 12:30 Pulse 71 12/19/24 12:30 Resp 16 12/19/24 12:30 BP 115/62 12/19/24 12:30 Pulse Ox 98 12/19/24 12:30 O2 Del Method Room Air 12/19/24 12:30 BMI result Body Mass Index 26.1 Const: General: cooperative, no acute distress, alert and awake Nutritional Appearance: well nourished Orientation/consciousness: patient oriented x3 HEENT: Head: Yes normal to inspection and Yes atraumatic Ears: hearing grossly normal bilaterally and external ears normal General nose exam: Normal external nose present, no nasal discharge noted and no epistaxis Face and sinus: Yes normal facial exam, No abrasion and No laceration Mouth: Normal oral and palatal mucosa present, no drooling and no muffled voice Eyes: General: appearance normal, both eyes and all related structures P eriorbital: periorbital findings normal Eyelids: Yes eyelids normal C onjunctivae: conjunctivae normal Pupils: Equal, round and reactive pupils present EOM: EOMs intact bilaterally Neck: Neck: Yes normal visual inspection, Yes full ROM and Yes no lymphadenopathy Resp: Effort & Inspection: normal respiratory effort and able to speak in complete sentences Neuro: General: patient oriented x3, moves all extremities and CN's II-XI intact bilaterally Cranial nerves: Yes Equal, round and reactive pupils present Cognition (Neuro): normal cognition Extrem: General: Yes normal to inspection, Yes full ROM and Yes capillary refill normal Psych: Appearance: grossly normal Mental Status: mental status grossly normal Affect: normal affect Attitude: cooperative Thought process: N ormal thought process present Thought content: Normal thought content present Insight: Good insight present (Psych) Course Course Course Narrative: 64 yo female with PMH of anxiety here with c/o not feeling herself confused (lost track of her location when driving down a routine road for her), dizzy, short of breath when walking up stairs this all started yesterday around 9pm. She has epigastric pain as well. No n/v/d. Both her legs feel weak and she feels shaky. Has a bad cough recently, no sick contacts, travel, procedures. Will obtain EKG, CT head, labs, UA, viral panel, CXR this is a RAPID medical screening exam the rest of the history and physical exam is to be done by the main provider. WILIAN 12/19/24 824am Medications Administered Discontinued Medications Generic Name Dose Route Start Last Admin Trade Name Chocoq PRN Reason Stop Dose Admin Acetaminophen 975 mg 12/19/24 11:07 12/19/24 11:16 Acetaminophen 325 Mg Tablet PO 12/19/24 11:08 975 mg ONCE ONE Administration Sodium Chloride 1,000 mls @ 999 mls/hr 12/19/24 10:30 12/19/24 12:25 Ns IV 12/19/24 11:30 Infused .Q1H1M GM Infusion Medical Decision Making Medical Decision Making [facility] Narrative: Patient is a 64 year old assigned female at with a history of GERD and carpal tunnel syndrome s/p release presenting to the emergency department today with weakness, epigastric pain, lightheadedness, cough, and sore throat. Patient's physical exam was unremarkable. No evidence of shortness of breath or confusion. Negative orthostatic vital signs. Patient's blood work was unremarkable. Patient's urine showed no acute process. Patient's EKG was unremarkable. Patient's chest x-ray and head CT showed no acute process. Patient's clinical presentation is most consistent with a viral illness. I explained my physical exam findings as well as all test results to the patient. I answered all questions asked by the patient. Patient received IV fluids while in the department. I stressed the importance of the patient taking her medication as directed (either prescribed or as the over the counter packaging recommends). I stressed the importance of the patient following up with his primary care provider. I stressed the importance of the patient returning to the emergency department immediately if his symptoms were to worsen or if he were to develop any dizziness, shortness of breath, difficulty breathing, chest pain, blurry vision, loss of vision, nausea, vomiting, abdominal pain, fever, chills, back pain, or any other complaints. Patient verbalized agreement and understanding with this treatment plan and discharge. Differential Diagnosis Differential Diagnoses: The differential diagnosis associated with the presentation includes Viral illness COVID-19 Influenza RSV Arrhythmia Cough PNA Admission/Observation Consideration of admission/observation: Escalation of care including admission/observation considered Patient would have been admitted to the hospital had her work up had any findings where hospital admission was appropriate and her clinical presentation warranted hospital admission. Lab Data [facility] Lab Attestation statement: I reviewed the patient's lab results. My interpretation of these results are in the [facility] Rationale portion of this note. 12/19/24 08:41 12/19/24 08:41 Labs: Lab Results 12/19/24 12/19/24 12/19/24 Range/Units 08:41 09:44 11:03 WBC 3.7 L (4.8-10.8) X10*3/uL RBC 3.93 L (4.20-5.50) X10*6/uL Hgb 13.2 (12.0-16.0) g/dl Hct 38.7 (37.0-47.0) % MCV 98.5 H (80.0-98.0) fL MCH 33.6 H (27.0-33.0) pg MCHC 34.1 (31.0-35.0) g/dl RDW 11.9 (11.0-16.0) % Plt Count 293 (160-400) X10*3/uL MPV 8.3 L (9.4-12.3) fL Immature Gran % (Auto) 0.3 (0.0-0.4) % Neut % (Auto) 30.9 L (45-73) % Lymph % (Auto) 53.3 H (20-40) % [place] % (Auto) 10.9 (2-11) % Eos % (Auto) 3.5 (0-4) % Baso % (Auto) 1.1 (0-2) % Lymph # (Auto) 2.0 (1.2-4.9) X10*3/uL [place] # (Auto) 0.4 (0.1-1.2) X10*3/uL Eos # (Auto) 0.1 (0.0-0.4) X10*3/uL Baso # (Auto) 0.0 (0.0-0.2) X10*3/uL Abs Immat Gran (auto) 0.01 (0.00-0.03) X10*3/uL Absolute Neuts (auto) 1.1 L (2.0-8.3) x10*3/uL Absolute Nucleated RBC 0.000 (0.0-0.012) X10*3/uL Nucleated RBC % (auto) 0.0 (0.0-0.2) /100WBC Sodium 140 (135-145) mmol/L Potassium 3.8 (3.3-5.1) mmol/L Chloride 106 (96-108) mmol/L Carbon Dioxide 27 (22-29) mmol/L Anion Gap 11 L (12-20) BUN 13 (9-16) mg/dL Creatinine 0.60 (0.5-1.4) mg/dL Estim Creat Clear Calc 89.1 Estimated GFR > 60 Random Glucose 115 (60-115) mg/dL Calcium 9.2 D (8.4-10.2) mg/dL Magnesium 2.0 (1.6-2.6) mg/dL Total Bilirubin 0.6 (0.0-1.0) mg/dL Direct Bilirubin 0.2 (0.0-0.5) mg/dL AST 26 (5-31) U/L ALT 24 (0-31) U/L Alkaline Phosphatase 91 (39-117) U/L Troponin I High Sens < 2.7 (<3.5-17.0) ng/L B-Natriuretic Peptide 51 (<100) pg/mL Total Protein 7.0 (6.5-8.0) g/dL Albumin 4.2 (3.5-5.0) g/dL Lipase 20 (8-78) U/L Urine Color Yellow Urine Appearance Clear Urine pH 7.5 (5.0-9.0) Ur Specific [place] 1.010 (1.005-1.025) Urine Protein Negative (Neg-Trace) mg/dL Urine Glucose (UA) Negative (Negative) mg/dL Urine Ketones Negative (Negative) mg/dL Urine Blood Negative (Negative) Urine Nitrite Negative (Negative) Ur Leukocyte Esterase Moderate (2+) H (Negative) Urine RBC 0-2 (0-2) /HPF Urine WBC 0-5 (0-5) /HPF Ur Squamous Epith Cells 0-2 (0-2) /HPF Urine Bacteria None Seen (None Seen) Hyaline Casts 0-2 (0-2) /LPF Influenza Type A (PCR) NEGATIVE (Negative) Influenza Type B (PCR) NEGATIVE (Negative) RSV RNA Qual (PCR) NEGATIVE (Negative) SARS-CoV-2 RNA (RT-PCR) NEGATIVE (Negative) S. pyogenes GrpA BETTYE Negative (Negative) Independent Interpretation I performed an independent interpretation of an: EKG, Plain X-Ray (chest) and CT Scan (head) Interpretation: My interpretation is in agreement with the radiologist's impression of these imaging studies. L EXAMINATION: XR CHEST 2 VIEWS HISTORY: cough COMPARISON: Comparison is made with the prior examination dated 03/20/2023. FINDINGS: PA and lateral views of the chest are submitted. The lungs are expanded and clear. There is no pleural effusion, pneumothorax, or pulmonary vascular congestion. The heart is normal in size. The bones are intact. XR/XR chest 2V IMPRESSION: No acute cardiopulmonary abnormality. Electronically signed by: Anurag Gaines MD 12/19/2024 08:59 AM EDT Dictated By: Anurag Gaines MD Signed By: Electronically signed by Anurag Gaines MD 12/19/24 0859 Report Number: [id number]: Total DLP = 0.00 mGy-cm EXAMINATION: CT HEAD WITHOUT CONTRAST CLINICAL INFORMATION: Altered mental status, confusion. COMPARISON: None available. TECHNIQUE: Contiguous axial imaging was performed from the skull base to vertex without intravenous administration of contrast. This CT examination was performed using dose optimization techniques as appropriate, variously including the following: *Automated exposure control *Adjustment of mA and/or kV according to patient size (this includes techniques or standardized protocols for targeted exams where dose is matched to indication/reason for exam; i.e. extremities or head) *Use of iterative reconstruction technique FINDINGS: There is no evidence of intracranial hemorrhage or extra-axial fluid collection. There is no mass effect, or edema. No CT evidence of acute territorial infarct. Ventricles, sulci, and cisterns are normal in size and configuration for patient age. No hydrocephalus. No midline shift. Negative hyperdense MCA sign. Negative insular ribbon sign. No significant white matter abnormality. Normal pituitary. Globes and orbital contents image normally. No extracranial soft tissue abnormalities. The paranasal sinuses, mastoid air cells, and tympanic cavities are normally aerated. No suspicious bony abnormalities. There are no acute fractures evident. CT/CT head/brain wo IV con IMPRESSION: No acute intracranial abnormality. Electronically signed by: Jacob Reyes MD 12/19/2024 09:35 AM EDT Dictated By: Jacob Reyes MD Signed By: Electronically signed by Jacob Reyes MD 12/19/24 0935 I independently interpreted this EKG and am in agreement with the below findings: Vent. Rate: 94 BPM Atrial Rate: 94 BPM P-R Int: 144 ms QRS Dur: 88 ms QT Int: 386 ms P-R-T Axes: 79 58 34 degrees QTcB Int: 482 ms Normal sinus rhythm Nonspecific ST and T wave abnormality When compared with ECG of 20-Mar-2023 07:27, Nonspecific T wave abnormality, worse in Anterior leads Electronically Signed By: JUNIOR VYAS MD Dictated By: Junior Vyas MD Signed By: Electronically signed by Junior Vyas MD 12/19/24 1026 Radiology Impression Discussion of test interpretation with radiology: I have reviewed the radiologist's reading. Discharge Plan Discharge Clinical Impression: Viral illness Patient Disposition: Home, Self-Care Instructions: Viral Syndrome (ED) Additional Instructions: Your work up today was reassuring that there is no emergent process causing your symptoms at this time. Please continue to stay hydrated with electrolyte containing fluids such as sugar free Gatorade or Powerade. Follow up with your primary care provider. Return to the emergency department immediately if your symptoms worsen or if you develop any numbness, tingling, dizziness, shortness of breath, difficulty breathing, chest pain, blurry vision, loss of vision, nausea, vomiting, abdominal pain, fever, chills, back pain, or any other complaints. Please see the information below about our Patient Portal. If you are not yet enrolled in the [facility] Patient Portal, you will receive an enrollment email invitation following your visit to any [facility] care setting. You may also self-enroll in the Patient Portal by visiting our website: [email or web address] The following information is required to access the Patient Portal: - Your [facility] Medical Record Number - Your personal home email address (must match what is in your electronic medical record, Registration staff can assist with this) - Name - Date of Capabilities of the Patient Portal: - Message some providers - View upcoming appointments - Access your health summary, medical history, and visit history - View current conditions and allergies - View procedure and lab results - View your medications, including guidelines, side effects, and precautions - Complete pre-appointment questionnaires requested by your provider - Ready summary reports of your office visits and procedures To access the Patient Portal Mobile Fu[employer], follow these directions: - Search Slide in the Fuad Store or Yidio Store - Download the Fuad - Search for [facility] - Enter your login/password Prescriptions: No Action Fleet Enema 19-7 gram/118 mL enema 118 ml CA DAILY PRN (Reason: constipation) Qty: 133 2RF Referrals: Sachin Keller MD [Primary Care Provider] - Interventions: ED Discharge Assessment Last Done: 12/19/24 12:30 Discharge Date/Time: 12/19/24 12:31 Print Language: Yoruba
--- NOTE | 2024-12-19 08:24 | ECG_ITS ---
Test Reason : sob Blood Pressure : */* mmHG Vent. Rate : 94 BPM Atrial Rate : 94 BPM P-R Int : 144 ms QRS Dur : 88 ms QT Int : 386 ms P-R-T Axes : 79 58 34 degrees QTcB Int : 482 ms Normal sinus rhythm Nonspecific ST and T wave abnormality Prolonged QT Abnormal ECG When compared with ECG of 20-Mar-2023 07:27, Nonspecific T wave abnormality, worse in Anterior leads Referred By: Penny Mills Electronically Signed By: MARLENE VYAS MD
[2024-12-19 08:46] LABS: MANUAL DIFF FLAG NO
[2024-12-19 08:50] LABS: Basophils Percent Auto 1.1 % (0-2); Eosinophils Absolute Auto 0.1 X10*3/uL (0.0-0.4); Eosinophils Percent Auto 3.5 % (0-4); Hematocrit 38.7 % (37.0-47.0); Hemoglobin 13.2 g/dl (12.0-16.0); Imm Gran Abs Auto 0.01 X10*3/uL (0.00-0.03); Imm Gran Pct Auto 0.3 % (0.0-0.4); Lymphocytes Percent Auto 53.3 % (20-40); Mean Corpuscular HGB Conc 34.1 g/dl (31.0-35.0); Mean Corpuscular Hemoglobin 33.6 pg (27.0-33.0); Mean Corpuscular Volume 98.5 fL (80.0-98.0); Mean Platelet Volume 8.3 fL (9.4-12.3); Monocytes Absolute Auto 0.4 X10*3/uL (0.1-1.2); Monocytes Percent Auto 10.9 % (2-11); Neutrophils Absolute Auto 1.1 x10*3/uL (2.0-8.3); Neutrophils Percent Auto 30.9 % (45-73); Platelet Count 293 X10*3/uL (160-400); Red Blood Count 3.93 X10*6/uL (4.20-5.50); Red Cell Distribution Width 11.9 % (11.0-16.0); White Blood Count 3.7 X10*3/uL (4.8-10.8)
[2024-12-19 09:05] LABS: Alanine Aminotransferase 24 U/L (0-31); Albumin Level 4.2 g/dL (3.5-5.0); Alkaline Phosphatase 91 U/L (39-117); Anion Gap 11 (12-20); Aspartate Amino Transferase 26 U/L (5-31); Bilirubin Direct 0.2 mg/dL (0.0-0.5); Bilirubin Total 0.6 mg/dL (0.0-1.0); Blood Urea Nitrogen 13 mg/dL (9-16); Calcium 9.2 mg/dL (8.4-10.2); Carbon Dioxide 27 mmol/L (22-29); Chloride 106 mmol/L (96-108); Creatinine Clr Calc Pharmacy 89.1; Estimated Glomerular Filt Rate > 60; Glucose Random 115 mg/dL (60-115); Lipase 20 U/L (8-78); Potassium 3.8 mmol/L (3.3-5.1); Sodium 140 mmol/L (135-145)
[2024-12-19 09:10] LABS: B Type Natriuretic Peptide 51 pg/mL (<100)
[2024-12-19 09:13] LABS: Troponin-I High Sensitivity < 2.7 ng/L (<3.5-17.0)
--- OUTSIDE RECORDS SUMMARY | 2024-12-19 10:11 | XMS_ITS | Clinical Summary ---
Author Organization [facility] Address [address] [place] [address] Phone Care Team Providers Care Community Service Technician Name Role Phone Sachin Keller MD Primary Care Provider [phone] Surgical History Surgery Date Site/Laterality Comments OTHER SURGICAL HISTORY PROCEDURE: ---- OTHER ----; COMMENT: vaginal sling [place] BREAST REDUCTION 07/25/2020 - 07/24/2021 Medical History Medical History Date Comments Anxiety disorder DX:Anxiety diso rder Family History Medical History Relation Name Comments Other: Other Brother heart disease Hypertension Father Other: Other Father heart disease Relation Name Status Comments Brother Father Social History Tobacco Use Types Packs/Day Years Used Date Smoking Tobacco: Never Smokeless Tobacco: Never Alcohol Use Standard Drinks/Week Comments Yes 0 (1 standard drink = 0.6 oz pur e alcohol) Comments Unknown Sex and Gender Information Value Date Recorded Sex Assigned at Not on file Legal Sex Female 7:50 AM EST Gender Identity Not on file Sexual Orientation Not on file Obstetrics History Para Term AB IAB SAB Ectopic Multiple Livin g Live Births 2 Last Filed Vital Signs Vital Sign Reading Time Taken Comments Blood Pressure - - Pulse - - Temperature - - Respiratory Rate - - Oxygen Saturation - - Inhaled Oxygen Concentration - - Weight 72.6 kg (160 lb) 05/29/2024 2:37 PM EST Height 162.6 cm (5' 4 ) 05/29/2024 2:37 PM EST Body Mass Index 27.46 05/29/2024 2:37 PM EST Plan of Treatment Health Maintenance Due Date Last Done Comments Cervical Cancer Screening: Pap Smear 1980 Pneumococcal Vaccine: 50+ Years (1 of 1 - PCV) 2009 Zoster Vaccines (1 of 2) 2009 Colorectal Cancer Screening: Colonoscopy 06/27/2022 Depression Screening 06/27/2022 Hepatitis C Screening 06/27/2022 Osteoporosis Screening (Bone Density Screening) 06/27/2022 Social Influencers of Health Screening 06/27/2022 Falls Risk Assessment 2024 COVID-19 Vaccine ( season) 2024 05/01/2024, 07/06/2023, 05/20/2022, Additional history exists Breast Cancer Screening 05/29/2026 05/29/20 24, 05/09/2023, 05/05/2022, Additional history exists DTaP,Tdap,and Td Vaccines (3 - Td or Tdap) 03/16/2034 03/16/2024, 06/24/2018 RSV Immunization Adult Patients Completed 07/06/2023 Influenza Vaccine Completed 05/01/2024, , 06/10/2021 HIB Vaccines Aged Out No longer eligi ble based on patient's age to complete this topic HPV Vaccines Aged Out No longer eligi ble based on patient's age to complete this topic Hepatitis A Vaccines Aged Out No long er eligible based on patient's age to complete this topic Hepatitis B Vaccines Aged Out No long er eligible based on patient's age to complete this topic IPV Vaccines Aged Out No longer eligi ble based on patient's age to complete this topic MMR Vaccines Aged Out No longer eligi ble based on patient's age to complete this topic Meningococcal ACWY Vaccine Aged Out N o longer eligible based on patient's age to complete this topic Meningococcal B Vaccine Aged Out No l onger eligible based on patient's age to complete this topic Pneumococcal Vaccine: Pediatrics (0 to 5 Years) and At-Risk Patients (6 to 64 Years) Aged Out No longer eligible based on patient's age to complete this topic RSV Immunization Patients Under 20 months Aged Out No longer eligible based on patient's age to complete this topic Varicella Vaccines Aged Out No longer eligible based on patient's age to complete this topic Procedures Procedure Name Priority Date/Time Associated Diagnosis Comments MG MAMMO DIGITAL SCREENING W VINCENT BILAT Routine 05/29/2024 2:55 PM EST Encounter for screening mammogram for breast cancer from Last 3 Months or Most Recently Relevant to Health Maintenance Results * MG Mammo Digital Screening w Vincent bilat (05/29/2024 2:55 PM EST) Anatomical Region Laterality Modality Breast Bilateral Mammography 05/29/2024 3:30 PM EST Impressions 05/29/2024 3:36 PM EST No mammographic evidence of malignancy. ?? No suspicious interval change. Stable post reduction changes ASSESSMENT: ?? BI-RADS 2: BENIGN RECOMMENDATION(S): 1: Routine screening mammogram BILATERAL in 1 year. -------- FINAL REPORT -------- Dictated By: Easton Marion Dictated Date: 05/29/2024 15:30 ET Assigned Physician: Easton Marion Reviewed and Electronically Signed By: Easton Marion Signed Date: 05/29/2024 15:36 ET Workstation ID: [id number] Transcribed By: Self Edit Transcribed Date: 05/29/2024 15:30 ET Narrative 05/29/2024 3:36 PM EST EXAM: ??SCREENING MAMMOGRAPHY, BILATERAL HISTORY: ??SCREENING. ??Bilateral reduction surgery 2020 COMPARISON: ??05/09/2023, 05/05/2022, 02/16/2021, 02/14/2020 TECHNIQUE: Synthesized CC and MLO projections of each breast. ??Tomosynthesis of each breast in the CC and MLO projections. ADDITIONAL IMAGING: None Computer-aided detection was employed with the iCAD ??profound AI 3-D. TISSUE DENSITY: There are scattered areas of fibroglandular density. (BI-RADS category B) FINDINGS: RIGHT BREAST: Evidence of previous reduction surgery. ??No new suspicious right breast finding. LEFT BREAST: Evidence of previous reduction surgery. ??No new suspicious left breast finding Procedure Note Easton Marion MD - 05/29/2024 EXAM: SCREENING MAMMOGRAPHY, BILATERAL HISTORY: SCREENING. Bilateral reduction surgery 2020 COMPARISON: 05/09/2023, 05/05/2022, 02/16/2021, 02/14/2020 TECHNIQUE: Synthesized CC and MLO projections of each breast.Tomosynthesis of each breast in the CC and MLO projections. ADDITIONAL IMAGING: None Computer-aided detection was employed with the iCAD profound AI 3-D. TISSUE DENSITY: There are scattered areas of fibroglandular density.(BI-RADS category B) FINDINGS: RIGHT BREAST: Evidence of previous reduction surgery. No new suspicious right breastfinding. LEFT BREAST: Evidence of previous reduction surgery. No new suspicious left breastfinding IMPRESSION: No mammographic evidence of malignancy. No suspicious interval change. Stable post reduction changes ASSESSMENT: BI-RADS 2: BENIGN RECOMMENDATION(S): 1: Routine screening mammogram BILATERAL in 1 year. -------- FINAL REPORT -------- Dictated By: Easton Marion Dictated Date: 05/29/2024 15:30 ET Assigned Physician: Easton Marion Reviewed and Electronically Signed By: Easton Marion Signed Date: 05/29/2024 15:36 ET Workstation ID: [id number] Transcribed By: Self Edit Transcribed Date: 05/29/2024 15:30 ET Sachin Keller MD IMG BI PROCEDURES Final Result from Last 3 Months or Most Recently Relevant to Health Maintenance Insurance Care Teams Community Service Technician Relationship Specialty Start Date End Date Sachin Keller MD PCP - General Internal Medicine 05/12/24
[2024-12-19 10:12] LABS: Influenza A PCR NEGATIVE (Negative); Influenza B PCR NEGATIVE (Negative); Resp Syncy Virus RNA Qual PCR NEGATIVE (Negative); SARS COV2 PCR INHOUSE NEGATIVE (Negative)
[2024-12-19 10:27] LABS: Appearance Urine Clear; Color Urine Yellow; Glucose Urine UA Negative (Negative); Leukocyte Esterase Urine Moderate (2+) (Negative); Nitrite Urine Negative (Negative); PH 7.5 (5.0-9.0); UMIC TRIGGER UACC YES; Urine Blood Negative (Negative); Urine Ketones Negative (Negative); Urine Protein Negative (Neg-Trace)
[2024-12-19 10:38] LABS: Bacteria Urine None Seen (None Seen); Hyaline Casts Urine 0-2 /LPF (0-2); RBC Urine 0-2 /HPF (0-2); Squamous Epithelial Cell Urine 0-2 /HPF (0-2); UACC Culture Trigger YES; WBC Urine 0-5 /HPF (0-5)
[2024-12-19] MEDS: 0.9 % Sodium Chloride 1,000 ML 999 ML IV (11:05)
[2024-12-19] MEDS: Acetaminophen 325 MG TABLET 975 MG PO (11:16)
[2024-12-19 11:24] LABS: IDNOW Serial# 55D5AD1C; Strep A Nucleic Acid Negative (Negative)
== END 2024-12-19 12:31 | disposition home or self-care (01) ==
PROVIDERS: Physician Assistant Medical; Emergency Provider Emergency Medicine; PCP Internal Medicine
DX: B34.9 Viral infection, unspecified (principal); R53.1 Weakness; R10.13 Epigastric pain; R05.9 Cough, unspecified; J02.9 Acute pharyngitis, unspecified; Z03.818 Encounter for observation for suspected exposure to other biological agents ruled out
CPT/HCPCS: 0241U; 36415; 70450; 71046; 80048; 80076; 81001; 81003; 83690; 83735; 83880; 84484; 85025; 87086; 87651; 93005; 96360; 99284; 99285

== ENCOUNTER → 2024-12-19 08:24 | Outpatient (BNV) | payer OTHER, MEDICARE, SELFPAY | PROVIDERS: PCP Internal Medicine; Visit Provider Internal Medicine Cardiovascular Disease | DX: R94.31 Abnormal electrocardiogram [ECG] [EKG] (principal); R06.02 Shortness of breath | CPT/HCPCS: 93010 ==

== ENCOUNTER → 2024-12-19 08:25 | Outpatient (BNV) | payer OTHER, MEDICARE, SELFPAY | PROVIDERS: PCP Internal Medicine; Visit Provider Radiology Diagnostic Radiology | DX: R41.82 Altered mental status, unspecified (principal); R05.9 Cough, unspecified | CPT/HCPCS: 70450; 71046 ==

== ENCOUNTER 2025-01-22 13:11 | Emergency (ER) | payer OTHER, MEDICARE, SELFPAY ==
--- NOTE | ~2025-01-22 | XR_ITS ---
EXAMINATION: XR CHEST CLINICAL INFORMATION: SOB COMPARISON: December 19, 2024 TECHNIQUE: 2 views of the chest were obtained. FINDINGS: Hyperinflated lungs. No consolidation pleural effusion or pneumothorax. Pulmonary reticular pattern. Bilateral apical lung scarring. Cardiomediastinal silhouette size is normal. S-shaped curvature of the thoracolumbar spine. Multilevel thoracic spondylosis. Osteopenia versus the process. XR/XR chest 2V IMPRESSION: Chronic interstitial lung disease. Scoliosis and multilevel spondylosis, thoracolumbar spine. Stable. Electronically signed by: Ji Diop MD 01/22/2025 02:27 PM EDT
[2025-01-22 13:24] VITALS: BP 105/55; BP 108/70; PULSE 60; PULSE 64; RESP 17; TEMP 37; BMI 24.9
--- NOTE | 2025-01-22 13:27 | ED_ITS ---
HPI - General Adult General Chief complaint: Arrhythmia/Palpitations Stated complaint: High HR after treadmill now resolved Time Seen by Provider: 01/22/25 13:25 Source: patient and RN notes reviewed Mode of arrival: ambulatory Limitations: no limitations History of Present Illness ED Provider: Jessika Becerra PA-C [facility] narrative: This is a 64-year-old female, with a past medical history of anxiety and depression, who presents emergency department via EMS with concerns for rapid heart rate which occurred today. Patient reports that she was on the treadmill this afternoon, which she typically walks at a rapid pace when suddenly felt as though her heart was racing. She got off the treadmill, and use the restroom to see if her heart would stop beating so quickly however this seemed to not resolve. She states she felt these symptoms for approximately 5-10 minutes which is atypical of her. She reports that she felt as though her heart was beating quickly. She felt slightly lightheaded. She denies any chest pain or shortness of breath. No abdominal pain, nausea, vomiting or diarrhea. She states that she has been in her usual state of health, states that she typically goes to the gym, and has been staying very well hydrated. Denies any recent illness. She states she is feeling well at this time, no current complaints. No other complaints or concerns at this time. MD complaint: Rapid heart rate Onset (ago): minute(s) Radiation: non-radiation Pain Consistency: now resolved Relieving factors: rest Exacerbating factors: none Associated symptoms: denies other symptoms Treatments prior to arrival: none Related Data Previous Rx's ?Medication ?Instructions ?Recorded sodium phosphates 19 gram-7 118 ml WY DAILY PRN anai pation 07/08/23 gram/118 mL enema (Fleet Enema) #133 mL Allergies Allergy/AdvReac Type Severity Reaction Status Date / Time No Known Allergies Allergy Verified 01/22/25 13:27 Review of Systems 2 Review of Systems: Yes all other systems are reviewed and are negative Constitutional: Constitutional: Reports as per [facility] Past Medical History Attestation statement: The following information was validated with the patient. Social History Social History Alcohol intake: current Alcohol intake frequency: holidays/special occasions only Advance Directives: No Advance Directives Information Provided: Yes Do you have a plan to hurt others: No Plan Physical Exam ED Vital Signs: Vital Signs - 24 hr 01/22/25 13:24 01/22/25 14:00 01/22/25 14:02 Temperature 98.6 F Pulse Rate 60 64 57 Respiratory Rate 17 Blood Pressure 105/55 L 116/53 L 114/58 L Pulse Oximetry Oxygen Delivery Method Room Air 01/22/25 14:03 01/22/25 18:24 Temperature 98.2 F Pulse Rate 65 67 Respiratory Rate 12 Blood Pressure 123/64 117/51 L Pulse Oximetry 97 Oxygen Delivery Method Room Air BMI result Body Mass Index 24.9 Const General: cooperative, comfortable and no acute distress Orientation/consciousness: patient oriented x3 Limitations: no limitations HENMT Head: Yes normal to inspection, Yes normocephalic and Yes atraumatic Ears: hearing grossly normal bilaterally General nose exam: Normal external nose present Face and sinus: Yes normal facial exam Mouth: Normal oral and palatal mucosa present, oropharynx normal and moist mucous membranes Throat: Yes posterior oropharynx normal Eyes General: appearance normal, both eyes and all related structures Eyelids: Yes eyelids normal Conjunctivae: conjunctivae normal Sclerae: sclerae normal Pupils: Equal, round and reactive pupils present EOM: EOMs intact bilaterally Neck Neck: Yes normal visual inspection, Yes full ROM and Yes no lymphadenopathy Lymphatic: no lymphadenopathy noted Chest Chest palpation & inspection: normal inspection of the chest Resp Effort & Inspection: normal respiratory effort and able to speak in complete sentences Auscultation: clear to auscultation bilaterally, no crackles, no rales, no rhonchi and no wheezes Cardio Rate: regular rate Rhythm: regular rhythm Heart sounds: S1 normal heart sound present and S2 normal heart sound present GI Inspection: Yes normal to inspection Skin General skin exam: no rashes or lesions noted Trauma: no lacerations or abrasions Wounds: no wounds Neuro General: patient oriented x3 and moves all extremities Cranial nerves: Yes Equal, round and reactive pupils present Extrem Other: No pitting edema, no calf tenderness. General: Yes normal to inspection Right upper extremity: normal to inspection Left upper extremity: normal to inspection Right lower extremity: normal to inspection Left lower extremity: normal to inspection Medications Administered Discontinued Medications Generic Name Dose Route Start Last Admin Trade Name Freq PRN Reason Stop Dose Admin Lactated Ringer's 1,000 mls @ 999 mls/hr 01/22/25 13:42 01/22/25 17:15 Lr IV 01/22/25 14:42 Infused .Q1H1M ONE Infusion Medical Decision Making Medical Decision Making [facility] Narrative: This is a 64-year-old female, with a past medical history of anxiety and depression, who presents emergency department via EMS with concerns for rapid heart rate which occurred today. She was walking quickly on a treadmil and felt her symptoms. Her HR went to the 130s acccording to her fitness watch and remained to be that high fo 5-10 minutes when she called EMS. She is feeling well and is asymptomatic. She had no CP. Slightly lightheaded during this episode. Denies hx of similar sxs in the past. No recent travel, surgeries, hospitalizations. No known cardiac hx. On arrival, VSS. She is well appearing under no acute distress. DDX including electrolyte derangement, arrhythmia, thyroid storm, dehydration, ACS. No recent travel, surgeries, hospitalizations. No hx of blood clots or cancer hx. Plan: Labs, EKG, orthos, cxr >> trop x 2 negative delta, EKG NSR with no acute ischemia, cxr unremarkable. Labs with slight leukopenia at 3.7, CHEM WNL, orthos negative. Pt was remained in the ED for about 5 hours during her workup without any return of symptoms. Advised pt to f.u with PCP and given return precautions. She understands and agrees with plan, stable for d.c, Differential Diagnosis Differential Diagnoses: The differential diagnosis associated with the presentation includes Admission/Observation Consideration of admission/observation: Escalation of care including admission/observation considered Lab Data [facility] Lab Attestation statement: I reviewed the patient's lab results. see [facility] 01/22/25 13:56 01/22/25 15:03 Labs: Lab Results 01/22/25 01/22/25 01/22/25 Range/Units 13:56 15:03 17:28 WBC 3.7 L (4.8-10.8) X10*3/uL RBC 3.84 L (4.20-5.50) X10*6/uL Hgb 13.0 (12.0-16.0) g/dl Hct 37.6 (37.0-47.0) % MCV 97.9 (80.0-98.0) fL MCH 33.9 H (27.0-33.0) pg MCHC 34.6 (31.0-35.0) g/dl RDW 11.9 (11.0-16.0) % Plt Count 311 (160-400) X10*3/uL MPV 8.6 L (9.4-12.3) fL Immature Gran % (Auto) 0.3 (0.0-0.4) % Neut % (Auto) 42.5 L (45-73) % Lymph % (Auto) 43.2 H (20-40) % [place] % (Auto) 11.3 H (2-11) % Eos % (Auto) 1.6 (0-4) % Baso % (Auto) 1.1 (0-2) % Lymph # (Auto) 1.6 (1.2-4.9) X10*3/uL [place] # (Auto) 0.4 (0.1-1.2) X10*3/uL Eos # (Auto) 0.1 (0.0-0.4) X10*3/uL Baso # (Auto) 0.0 (0.0-0.2) X10*3/uL Abs Immat Gran (auto) 0.01 (0.00-0.03) X10*3/uL Absolute Neuts (auto) 1.6 L (2.0-8.3) x10*3/uL Absolute Nucleated RBC 0.000 (0.0-0.012) X10*3/uL Nucleated RBC % (auto) 0.0 (0.0-0.2) /100WBC Sodium 139 (135-145) mmol/L Potassium 4.2 (3.3-5.1) mmol/L Chloride 106 (96-108) mmol/L Carbon Dioxide 25 (22-29) mmol/L Anion Gap 12 (12-20) BUN 10 (9-16) mg/dL Creatinine 0.60 (0.5-1.4) mg/dL Estim Creat Clear Calc 87.2 Estimated GFR > 60 Random Glucose 101 (60-115) mg/dL Calcium 8.9 (8.4-10.2) mg/dL Magnesium 2.1 (1.6-2.6) mg/dL Total Bilirubin 0.5 (0.0-1.0) mg/dL Direct Bilirubin 0.1 (0.0-0.5) mg/dL AST 24 (5-31) U/L ALT 11 (0-31) U/L Alkaline Phosphatase 84 (39-117) U/L Troponin I High Sens < 2.7 3.5 (<3.5-17.0) ng/L Total Protein 6.4 L (6.5-8.0) g/dL Albumin 3.9 (3.5-5.0) g/dL TSH 1.08 (0.32-4.0) uIU/mL Influenza Type A (PCR) NEGATIVE (Negative) Influenza Type B (PCR) NEGATIVE (Negative) RSV RNA Qual (PCR) NEGATIVE (Negative) SARS-CoV-2 RNA (RT-PCR) NEGATIVE (Negative) Independent Interpretation I performed an independent interpretation of an: EKG Interpretation: [place] [id number] Electrocardiograph Report Signed Patient: Mellisa Blackmon MR#: [id number] : 1960 Acct:[id number] Age/Sex: 64 / F ADM Date: 01/22/25 Loc: .ED Test Reason : HP Blood Pressure : */* mmHG Vent. Rate : 57 BPM Atrial Rate : 57 BPM P-R Int : 150 ms QRS Dur : 88 ms QT Int : 436 ms P-R-T Axes : 38 55 60 degrees QTcB Int : 424 ms Sinus bradycardia Otherwise normal ECG When compared with ECG of 19-Dec-2024 08:31, Vent. rate has decreased by 37 bpm Nonspecific T wave abnormality no longer evident in Inferior leads Nonspecific T wave abnormality, improved in Anterior leads QT has shortened Radiology Impression Discussion of test interpretation with radiology: I have reviewed the radiologist's reading. Radiologist Impression: FINDINGS: Hyperinflated lungs. No consolidation pleural effusion or pneumothorax. Pulmonary reticular pattern. Bilateral apical lung scarring. Cardiomediastinal silhouette size is normal. S-shaped curvature of the thoracolumbar spine. Multilevel thoracic spondylosis. Osteopenia versus the process. XR/XR chest 2V IMPRESSION: Chronic interstitial lung disease. Scoliosis and multilevel spondylosis, thoracolumbar spine. Stable. Electronically signed by: Ji Diop MD 01/22/2025 02:27 PM EDT RP Dictated By: Ji Head MD Discharge Plan Discharge Clinical Impression: Palpitations Patient Disposition: Home, Self-Care Instructions: Heart Palpitations (ED) Additional Instructions: You were seen in the emergency department due to an episode of palpitations. Your overall workup today was reassuring. It is unclear what caused you to have the symptoms however your overall workup today was normal. Please continue to stay well hydrated. You may also follow-up with cardiology as needed, call to make an appointment. If any new or worsening symptoms occur including but not limited to severe chest pain, shortness for breath, palpitations, please seek emergent care. Prescriptions: No Action Fleet Enema 19-7 gram/118 mL enema 118 ml WY DAILY PRN (Reason: constipation) Qty: 133 2RF Referrals: [facility] [Provider Group] Interventions: ED Discharge Assessment Last Done: 01/22/25 18:24 Discharge Date/Time: 01/22/25 18:25 Print Language: Lao
[2025-01-22 14:00] VITALS: BP 116/53; PULSE 64
[2025-01-22 14:02] VITALS: BP 114/58; PULSE 57
[2025-01-22 14:03] VITALS: BP 123/64; PULSE 65
[2025-01-22] MEDS: Lactated Ringers 1,000 ML 999 ML IV (14:05)
--- NOTE | 2025-01-22 14:05 | PC.NURSE ---
This nurse obtained 20G IV access in left forearm right under AC area, labs and labs obtained. Ortho Vitals done on pt. Pt medicated per mar with LR,pain scale assessed pt states 0 out of 190 pain. call guy within reach.
[2025-01-22 14:47] LABS: MANUAL DIFF FLAG NO
[2025-01-22 14:49] LABS: Hematocrit 37.6 % (37.0-47.0); Hemoglobin 13.0 g/dl (12.0-16.0); Imm Gran Abs Auto 0.01 X10*3/uL (0.00-0.03); Imm Gran Pct Auto 0.3 % (0.0-0.4); Lymphocytes Absolute Auto 1.6 X10*3/uL (1.2-4.9); Mean Corpuscular HGB Conc 34.6 g/dl (31.0-35.0); Mean Corpuscular Hemoglobin 33.9 pg (27.0-33.0); Mean Corpuscular Volume 97.9 fL (80.0-98.0); NRBC Abs Auto 0.000 X10*3/uL (0.0-0.012); NRBC Pct Auto 0.0 /100WBC (0.0-0.2); Platelet Count 311 X10*3/uL (160-400); Red Blood Count 3.84 X10*6/uL (4.20-5.50); White Blood Count 3.7 X10*3/uL (4.8-10.8)
--- NOTE | 2025-01-22 15:08 | PC.NURSE ---
IVF still running.
--- OUTSIDE RECORDS SUMMARY | 2025-01-22 15:13 | XMS_ITS | Clinical Summary ---
Author Organization [facility] Address [address] [place] [address] Phone Care Team Providers Care Vehicle Window Tinter Name Role Phone Sachin Keller MD Primary Care Provider [phone] Surgical History Surgery Date Site/Laterality Comments OTHER SURGICAL HISTORY PROCEDURE: ---- OTHER ----; COMMENT: vaginal sling [place] BREAST REDUCTION 07/25/2020 - 07/24/2021 Medical History [...] 2024 05/01/2024, 07/06/2023, 05/20/2022, Additional history exists Influenza Vaccine (#1) 2025 , 05/20/2022, 06/10/2021 Breast Cancer Screening 05/29/2026 05/29/20 24, 05/09/2023, 05/05/2022, Additional history exists DTaP,Tdap,and Td Vaccines (3 - Td or Tdap) 03/16/2034 03/16/2024, 06/24/2018 RSV Immunization Adult Patients Completed 07/06/2023 HIB Vaccines Aged Out No longer eligi [...] PM EST No mammographic evidence of malignancy. No suspicious interval change. Stable post reduction changes ASSESSMENT: BI-RADS 2: BENIGN RECOMMENDATION(S): 1: Routine screening mammogram BILATERAL in 1 year. -------- FINAL REPORT -------- Dictated By: Easton Marion Dictated Date: 05/29/2024 15:30 ET Assigned Physician: Easton Marion Reviewed and Electronically Signed By: Easton Marion Signed Date: 05/29/2024 15:36 ET Workstation ID: [id number] Transcribed By: Self Edit Transcribed Date: 05/29/2024 15:30 ET Narrative 05/29/2024 3:36 PM EST EXAM: SCREENING MAMMOGRAPHY, BILATERAL HISTORY: SCREENING. Bilateral reduction surgery 2020 COMPARISON: 05/09/2023, 05/05/2022, 02/16/2021, 02/14/2020 TECHNIQUE: Synthesized CC and MLO projections of each breast. Tomosynthesis of each breast in the CC and MLO projections. ADDITIONAL IMAGING: None Computer-aided detection was employed with the iCAD [employer] AI 3-D. TISSUE DENSITY: There are scattered areas of fibroglandular density. (BI-RADS category B) FINDINGS: RIGHT BREAST: Evidence of previous reduction surgery. No new suspicious right breast finding. LEFT BREAST: Evidence of previous reduction surgery. No new suspicious left breast finding Procedure Note [...] Signed Date: 05/29/2024 15:36 ET Workstation ID: [id number] Transcribed By: Self Edit Transcribed Date: 05/29/2024 15:30 ET Sachin Keller MD IMG BI PROCEDURES Final Result from Last 3 Months or Most Recently Relevant to [place] [id number] Care Teams Vehicle Window Tinter Relationship Specialty Start Date End Date Sachin Keller MD PCP - General Internal Medicine 05/12/24
[2025-01-22 15:27] LABS: Resp Syncy Virus RNA Qual PCR NEGATIVE (Negative); SARS COV2 PCR INHOUSE NEGATIVE (Negative)
[2025-01-22 15:36] LABS: Alanine Aminotransferase 11 U/L (0-31); Albumin Level 3.9 g/dL (3.5-5.0); Alkaline Phosphatase 84 U/L (39-117); Anion Gap 12 (12-20); Aspartate Amino Transferase 24 U/L (5-31); Blood Urea Nitrogen 10 mg/dL (9-16); Calcium 8.9 mg/dL (8.4-10.2); Carbon Dioxide 25 mmol/L (22-29); Chloride 106 mmol/L (96-108); Creatinine Clr Calc Pharmacy 87.2; Estimated Glomerular Filt Rate > 60; Magnesium 2.1 mg/dL (1.6-2.6); Potassium 4.2 mmol/L (3.3-5.1); Sodium 139 mmol/L (135-145); Total Protein 6.4 g/dL (6.5-8.0); Troponin-I High Sensitivity < 2.7 ng/L (<3.5-17.0)
[2025-01-22 15:49] LABS: Thyroid Stimulating Hormone 1.08 uIU/mL (0.32-4.0)
[2025-01-22 17:55] LABS: Troponin-I High Sensitivity 3.5 ng/L (<3.5-17.0)
[2025-01-22 18:24] VITALS: BP 117/51; PULSE 67; RESP 12; TEMP 36.8; O2SAT 97
== END 2025-01-22 18:25 | disposition home or self-care (01) ==
PROVIDERS: Physician Assistant Medical; Emergency Provider Emergency Medicine Emergency Medical Services; PCP Internal Medicine
DX: R00.2 Palpitations (principal); I49.9 Cardiac arrhythmia, unspecified; R00.1 Bradycardia, unspecified; R42 Dizziness and giddiness; Z79.899 Other long term (current) drug therapy; Z03.818 Encounter for observation for suspected exposure to other biological agents ruled out
CPT/HCPCS: 36415; 71046; 80048; 80076; 83735; 84443; 84484; 85025; 87637; 93005; 96360; 96361; 99284; 99285; J7120

== ENCOUNTER → 2025-01-22 13:26 | Outpatient (BNV) | payer OTHER, MEDICARE, SELFPAY | PROVIDERS: Emergency Provider Emergency Medicine Emergency Medical Services; PCP Internal Medicine; Visit Provider Internal Medicine Cardiovascular Disease | DX: R00.1 Bradycardia, unspecified (principal) | CPT/HCPCS: 93010 ==

== ENCOUNTER → 2025-01-22 13:42 | Outpatient (BNV) | payer OTHER, MEDICARE, SELFPAY | PROVIDERS: Emergency Provider Emergency Medicine Emergency Medical Services; PCP Internal Medicine; Visit Provider Radiology Diagnostic Radiology | DX: J84.9 Interstitial pulmonary disease, unspecified (principal); M47.815 Spondylosis without myelopathy or radiculopathy, thoracolumbar region; M41.35 Thoracogenic scoliosis, thoracolumbar region | CPT/HCPCS: 71046 ==

== ENCOUNTER 2025-01-26 13:04 | Emergency (ER) | payer OTHER, MEDICARE, SELFPAY ==
--- NOTE | 2025-01-26 13:05 | ECG_ITS ---
Test Reason : PALPITATIONS Blood Pressure : */* mmHG Vent. Rate : 100 BPM Atrial Rate : 100 BPM P-R Int : 144 ms QRS Dur : 86 ms QT Int : 344 ms P-R-T Axes : 77 79 40 degrees QTcB Int : 443 ms Normal sinus rhythm Nonspecific ST and T wave abnormality Abnormal ECG When compared with ECG of 22-Jan-2025 13:31, Vent. rate has increased by 43 bpm T wave inversion now evident in Inferior leads Nonspecific T wave abnormality, worse in Anterolateral leads Referred By: Anneliese Scott Electronically Signed By: MARLENE VYAS MD
[2025-01-26 13:16] VITALS: BP 130/48; PULSE 86; RESP 18; TEMP 37.2; O2SAT 98; BMI 25.9
--- NOTE | 2025-01-26 13:16 | ED.GENADULT ---
HPI - General Adult General Chief complaint: Arrhythmia/Palpitations Stated complaint: palpations Time Seen by Provider: 01/26/25 13:42 Related Data Previous Rx's ?Medication ?Instructions ?Recorded sodium phosphates 19 gram-7 118 ml TN DAILY PRN constipation 07/08/23 gram/118 mL enema (Fleet Enema) #133 mL Allergies Allergy/AdvReac Type Severity Reaction Status Date / Time No Known Allergies Allergy Verified 01/26/25 13:17 [facility] Social History Social History Alcohol intake: current Alcohol intake frequency: holidays/special occasions only Smoked in Last 30 Days: No Use of substances other than those prescribed or required for medical reasons: No Advance Directives: No Advance Directives Information Provided: No Physical Exam ED Vital Signs: Vital Signs - 24 hr 01/26/25 13:16 01/26/25 14:00 01/26/25 14:14 Temperature 99.0 F 97.8 F Pulse Rate 86 57 65 Respiratory Rate 18 18 Blood Pressure 130/48 L 103/64 113/54 L Pulse Oximetry 98 98 Oxygen Delivery Method Room Air Room Air 01/26/25 14:15 01/26/25 14:15 01/26/25 15:35 Temperature 97.3 F Pulse Rate 68 86 68 Respiratory Rate 16 Blood Pressure 107/62 102/56 L 122/65 Pulse Oximetry 98 Oxygen Delivery Method Room Air BMI result Body Mass Index 25.9 Course Course Course Narrative: RME performed by Anneliese Scott PA-C. Patient is a 64 year old assigned female at presenting to the emergency department with palpitations. Patient states that she is having these palpitations with any kind of activity. Detailed physical exam and review of systems are deferred to the field service coordinator. EKG and labs ordered. Patient placed back in the waiting room pending room availability and results. Patient dispositioned by ANTON Saenz. Please refer to her note from 01/26/2025. Medical Decision Making Lab Data 01/26/25 13:24 01/26/25 13:24 Labs: Lab Results 01/26/25 01/26/25 Range/Units 13:24 14:23 WBC 3.8 L (4.8-10.8) X10*3/uL RBC 4.06 L (4.20-5.50) X10*6/uL Hgb 13.7 (12.0-16.0) g/dl Hct 38.9 (37.0-47.0) % MCV 95.8 (80.0-98.0) fL MCH 33.7 H (27.0-33.0) pg MCHC 35.2 H (31.0-35.0) g/dl RDW 11.9 (11.0-16.0) % Plt Count 312 (160-400) X10*3/uL MPV 8.0 L (9.4-12.3) fL Immature Gran % (Auto) 0.3 (0.0-0.4) % Neut % (Auto) 40.5 L (45-73) % Lymph % (Auto) 45.2 H (20-40) % Wood % (Auto) 11.4 H (2-11) % Eos % (Auto) 1.3 (0-4) % Baso % (Auto) 1.3 (0-2) % Lymph # (Auto) 1.7 (1.2-4.9) X10*3/uL Wood # (Auto) 0.4 (0.1-1.2) X10*3/uL Eos # (Auto) 0.1 (0.0-0.4) X10*3/uL Baso # (Auto) 0.1 (0.0-0.2) X10*3/uL Abs Immat Gran (auto) 0.01 (0.00-0.03) X10*3/uL Absolute Neuts (auto) 1.5 L (2.0-8.3) x10*3/uL Absolute Nucleated RBC 0.000 (0.0-0.012) X10*3/uL Nucleated RBC % (auto) 0.0 (0.0-0.2) /100WBC D-Dimer High Sensitivty < 150 NG/ML Sodium 140 (135-145) mmol/L Potassium 3.6 (3.3-5.1) mmol/L Chloride 107 (96-108) mmol/L Carbon Dioxide 25 (22-29) mmol/L Anion Gap 12 (12-20) BUN 10 (9-16) mg/dL Creatinine 0.63 (0.5-1.4) mg/dL Estim Creat Clear Calc 84.6 Estimated GFR > 60 Random Glucose 174 H (60-115) mg/dL Calcium 9.3 (8.4-10.2) mg/dL Magnesium 2.0 (1.6-2.6) mg/dL Total Bilirubin 0.5 (0.0-1.0) mg/dL AST 24 (5-31) U/L ALT 18 (0-31) U/L Alkaline Phosphatase 90 (39-117) U/L Troponin I High Sens < 2.7 (<3.5-17.0) ng/L Total Protein 7.0 (6.5-8.0) g/dL Albumin 4.3 (3.5-5.0) g/dL TSH 1.76 (0.32-4.0) uIU/mL Free T4 0.91 (0.71-1.85) ng/dL Critical Care Time Critical Care Time Critical Care Time: No Discharge Plan Discharge Clinical Impression: Palpitations Patient Disposition: Home, Self-Care Instructions: Heart Palpitations (DC) Additional Instructions: You were evaluated in the ED today for palpitations. Your work up today is reassuring. As discussed, your symptoms may be anxiety related. I recommend following up with your PCP to discuss possible medication adjustments. Please decrease your caffeine intake as there is a med can worsen your symptoms. Increase your water intake. I also recommend contacting cardiology Tuesday morning to establish care as you will likely require a Holter monitor for further evaluation of your symptoms. Please return with any new or worsening symptoms. In the case of an emergency call 911. Prescriptions: No Action Fleet Enema 19-7 gram/118 mL enema 118 ml TN DAILY PRN (Reason: constipation) Qty: 133 2RF Referrals: [facility] [place] [facility] [Provider Group] Sachin Keller MD [Primary Care Provider, Internal Medicine] Interventions: ED Discharge Assessment Last Done: 01/26/25 15:35 Discharge Date/Time: 01/26/25 15:39 Print Language: Indian
[2025-01-26 13:29] LABS: MANUAL DIFF FLAG NO
[2025-01-26 13:30] LABS: Hematocrit 38.9 % (37.0-47.0); Hemoglobin 13.7 g/dl (12.0-16.0); Imm Gran Abs Auto 0.01 X10*3/uL (0.00-0.03); Imm Gran Pct Auto 0.3 % (0.0-0.4); Lymphocytes Absolute Auto 1.7 X10*3/uL (1.2-4.9); Mean Corpuscular HGB Conc 35.2 g/dl (31.0-35.0); Mean Corpuscular Hemoglobin 33.7 pg (27.0-33.0); Mean Corpuscular Volume 95.8 fL (80.0-98.0); NRBC Abs Auto 0.000 X10*3/uL (0.0-0.012); NRBC Pct Auto 0.0 /100WBC (0.0-0.2); Platelet Count 312 X10*3/uL (160-400); Red Blood Count 4.06 X10*6/uL (4.20-5.50); White Blood Count 3.8 X10*3/uL (4.8-10.8)
[2025-01-26 13:43] LABS: Alanine Aminotransferase 18 U/L (0-31); Albumin Level 4.3 g/dL (3.5-5.0); Alkaline Phosphatase 90 U/L (39-117); Anion Gap 12 (12-20); Aspartate Amino Transferase 24 U/L (5-31); Blood Urea Nitrogen 10 mg/dL (9-16); Calcium 9.3 mg/dL (8.4-10.2); Carbon Dioxide 25 mmol/L (22-29); Chloride 107 mmol/L (96-108); Creatinine Clr Calc Pharmacy 84.6; Estimated Glomerular Filt Rate > 60; Magnesium 2.0 mg/dL (1.6-2.6); Potassium 3.6 mmol/L (3.3-5.1); Sodium 140 mmol/L (135-145); Total Protein 7.0 g/dL (6.5-8.0)
[2025-01-26 13:51] LABS: Troponin-I High Sensitivity < 2.7 ng/L (<3.5-17.0)
[2025-01-26 14:00] VITALS: BP 103/64; PULSE 57; RESP 18; TEMP 36.6; O2SAT 98
--- NOTE | 2025-01-26 14:00 | ED_ITS ---
HPI - Arrhythmia/Palpitations General Chief Complaint: Arrhythmia/Palpitations Stated Complaint: palpations Time Seen by Provider: 01/26/25 13:42 Source: patient Mode of arrival: ambulatory Limitations: no limitations History of Present Illness ED Provider: JONNA MO PA-C HPI narrative: 64 year old female with pmhx significant for anxiety, GERD, B12 deficiency anemia presents to the ED today for evaluation of palpitations. Reports intermittent episodes over the last week. Admits to associated dizziness, blurred vision, and diaphoresis with these palpitations. Her anxiety medication was recently changed to desvenlafaxine approximately 6 months ago. She takes this daily, as prescribed. She also takes Ativan on PRN basis. She wonders if these palpitations may be anxiety related. She admits to drinking approximately 20 oz soda daily. Admits to chronic dry cough x3 months. No sputum production, hemoptysis. Denies recent travel, long car rides. No palpitations/ concerns at present. Denies fever, chills, nausea/vomiting, lower extremity pain/swelling. Patient was evaluated at our facility on 01/22/25 for same. Had unremarkable work up. She was discharged home with referral for cardiology. She has plans to call them on Tuesday morning to establish care. Related Data Previous Rx's ?Medication ?Instructions ?Recorded sodium phosphates 19 gram-7 118 ml [place] DAILY PRN christy gibson 07/08/23 gram/118 mL enema (Fleet Enema) #133 mL Allergies Allergy/AdvReac Type Severity Reaction Status Date / Time No Known Allergies Allergy Verified 01/26/25 13:17 Review of Systems 2 Review of Systems: Constitutional: No fever, chills, fatigue, night sweats, weight changes ENT/Mouth: No ear pain, hearing loss, nasal congestion, sinus pain, rhinorrhea, sore throat Eyes: No eye pain, swelling, redness, vision changes, discharge Cardio: No chest pain, palpitations, NICHOLSON, orthopnea, peripheral edema Pulm: No SOB, cough, sputum, wheezing, dyspnea, hemoptysis GI: No nausea, vomiting, hematemesis, abdominal pain, diarrhea, constipation, hematochezia, melena : No irregular bleeding, dysuria, frequency, urgency, hesitancy, hematuria, flank pain, urinary flow changes, urinary incontinence or retention MSK: No back pain, neck pain, joint pain, myalgias Skin: No lesions, rashes Neuro: No weakness, numbness, paresthesias, LOC, dizziness, headache Psych: No anxiety/panic, depression, SI/HI, AH/VH All other systems reviewed and are negative. [facility] Past Medical History Attestation statement: The following information was validated with the patient. Source: old records reviewed and nursing notes reviewed Social History Social History Alcohol intake: current Alcohol intake frequency: holidays/special occasions only Smoked in Last 30 Days: No Use of substances other than those prescribed or required for medical reasons: No Advance Directives: No Advance Directives Information Provided: No Physical Exam 2 Vital Signs: Vital Signs: Last Vital Signs Temp 97.3 F 01/26/25 15:35 Pulse 68 01/26/25 15:35 Resp 16 01/26/25 15:35 BP 122/65 01/26/25 15:35 Pulse Ox 98 01/26/25 15:35 O2 Del Method Room Air 01/26/25 15:35 BMI result Body Mass Index 25.9 Vital signs stable General: Well appearing, in no acute distress. Skin: Warm, dry, intact. No rashes or lesions. Head: Normocephalic, atraumatic. EENT: Hearing is intact b/l. Conjunctiva clear. PERRLA. EOM intact. Moist mucous membranes.? Neck: Supple without LAD Cardiac: Chest wall symmetric. RRR. Lungs: Normal respiratory effort without accessory muscle use. CTA bilaterally. No rales, rhonchi, or wheezes.? Back: No midline spinous or paraspinal tenderness. No step off deformity. Ext: Upper and lower extremities atraumatic, without tenderness, deformity, swelling or erythema. No peripheral edema. No calf tenderness bilaterally. Neuro: AOx3. Normal speech. Ambulating with steady gait. Psych: Appropriate mood and affect. Responds appropriately to questions. Course Course Course Narrative: CBC with leukopenia, chronic and stable when compared to priors. H&H stable. Chemistry without acute electrolyte abnormality requiring intervention. No SANJUANA. Random glucose 174. Liver function WNL. Troponin undetectable, ACS unlikely. TSH and free T4 WNL. EKG showing normal sinus rhythm, 100 bpm, no acute ischemic changes or ST elevations. ddimer undetectable - PE unlikely, no imaging warranted at this time. > I personally ambulated patient around the ED, monitoring heart rate. Patient's heart rate maintained 80-84 beats per minute during ambulation. > at this time, etiology of palpitations is unclear. She has remained asymptomatic since arriving in the ED today. Question anxiety component. Advised the patient to follow up with her PCP regarding possible med changes. I also advised her to follow up with Cardiology as she will likely need a Holter monitor. > Patient has remained stable throughout ED visit today. Discussed worrisome signs and symptoms and when to return to the ED. All questions answered at this time. Patient is agreeable with disposition and stable for discharge. Medical Decision Making Medical Decision Making [facility] Narrative: 64 year old female with pmhx significant for anxiety, GERD, B12 deficiency anemia presents to the ED today for evaluation of palpitations. Vital signs stable. exam benign. Plan for labs, EKG, re-evaluation Differential Diagnosis Differential Diagnoses: The differential diagnosis associated with the presentation includes anemia, electrolyte abnormality, dehydration, arrhythmias, ACS, PE, POTS Admission/Observation not indicated. Lab Data [facility] Lab Attestation statement: I reviewed the patient's lab results. as above 01/26/25 13:24 01/26/25 13:24 Labs: Lab Results 01/26/25 01/26/25 Range/Units 13:24 14:23 WBC 3.8 L (4.8-10.8) X10*3/uL RBC 4.06 L (4.20-5.50) X10*6/uL Hgb 13.7 (12.0-16.0) g/dl Hct 38.9 (37.0-47.0) % MCV 95.8 (80.0-98.0) fL MCH 33.7 H (27.0-33.0) pg MCHC 35.2 H (31.0-35.0) g/dl RDW 11.9 (11.0-16.0) % Plt Count 312 (160-400) X10*3/uL MPV 8.0 L (9.4-12.3) fL Immature Gran % (Auto) 0.3 (0.0-0.4) % Neut % (Auto) 40.5 L (45-73) % Lymph % (Auto) 45.2 H (20-40) % Burnett % (Auto) 11.4 H (2-11) % Eos % (Auto) 1.3 (0-4) % Baso % (Auto) 1.3 (0-2) % Lymph # (Auto) 1.7 (1.2-4.9) X10*3/uL Burnett # (Auto) 0.4 (0.1-1.2) X10*3/uL Eos # (Auto) 0.1 (0.0-0.4) X10*3/uL Baso # (Auto) 0.1 (0.0-0.2) X10*3/uL Abs Immat Gran (auto) 0.01 (0.00-0.03) X10*3/uL Absolute Neuts (auto) 1.5 L (2.0-8.3) x10*3/uL Absolute Nucleated RBC 0.000 (0.0-0.012) X10*3/uL Nucleated RBC % (auto) 0.0 (0.0-0.2) /100WBC D-Dimer High Sensitivty < 150 NG/ML Sodium 140 (135-145) mmol/L Potassium 3.6 (3.3-5.1) mmol/L Chloride 107 (96-108) mmol/L Carbon Dioxide 25 (22-29) mmol/L Anion Gap 12 (12-20) BUN 10 (9-16) mg/dL Creatinine 0.63 (0.5-1.4) mg/dL Estim Creat Clear Calc 84.6 Estimated GFR > 60 Random Glucose 174 H (60-115) mg/dL Calcium 9.3 (8.4-10.2) mg/dL Magnesium 2.0 (1.6-2.6) mg/dL Total Bilirubin 0.5 (0.0-1.0) mg/dL AST 24 (5-31) U/L ALT 18 (0-31) U/L Alkaline Phosphatase 90 (39-117) U/L Troponin I High Sens < 2.7 (<3.5-17.0) ng/L Total Protein 7.0 (6.5-8.0) g/dL Albumin 4.3 (3.5-5.0) g/dL TSH 1.76 (0.32-4.0) uIU/mL Free T4 0.91 (0.71-1.85) ng/dL Independent Interpretation I performed an independent interpretation of an: EKG External Record Review External record reviewed: Inpatient record and Office record Chronic Conditions Patient?s care impacted by: Other (anxiety) Social Determinants Patient?s care significantly limited by Social Determinants of Health including: Other Social Determinant of Health Critical Care Time Critical Care Time Critical Care Time: No Discharge Plan Discharge Clinical Impression: Palpitations Patient Disposition: Home, Self-Care Instructions: Heart Palpitations (DC) Additional Instructions: You were evaluated in the ED today for palpitations. Your work up today is reassuring. As discussed, your symptoms may be anxiety related. I recommend following up with your PCP to discuss possible medication adjustments. Please decrease your caffeine intake as there is a med can worsen your symptoms. Increase your water intake. I also recommend contacting cardiology Tuesday to establish care as you will likely require a Holter monitor for further evaluation of your symptoms. Please return with any new or worsening symptoms. In the case of an emergency call 911. Prescriptions: No Action Fleet Enema 19-7 gram/118 mL enema 118 ml [place] DAILY PRN (Reason: constipation) Qty: 133 2RF Referrals: [facility] [place] [facility] [Provider Group] Sachin Keller MD [Primary Care Provider, Internal Medicine] Interventions: ED Discharge Assessment Last Done: 01/26/25 15:35 Discharge Date/Time: 01/26/25 15:39 Print Language: Belizean
[2025-01-26 14:14] VITALS: BP 113/54; PULSE 65
[2025-01-26 14:15] VITALS: BP 102/56; BP 107/62; PULSE 68; PULSE 86
[2025-01-26 14:30] LABS: Free T4 (Free Thyroxine) 0.91 ng/dL (0.71-1.85); Thyroid Stimulating Hormone 1.76 uIU/mL (0.32-4.0)
[2025-01-26 14:50] LABS: D Dimer High Sensitivity < 150 NG/ML
[2025-01-26 15:35] VITALS: BP 122/65; PULSE 68; RESP 16; TEMP 36.3; O2SAT 98
== END 2025-01-26 15:39 | disposition home or self-care (01) ==
PROVIDERS: Physician Assistant Medical; Emergency Provider Emergency Medicine; PCP Internal Medicine
DX: R00.2 Palpitations (principal); F41.9 Anxiety disorder, unspecified; K21.9 Gastro-esophageal reflux disease without esophagitis; Z79.899 Other long term (current) drug therapy
CPT/HCPCS: 36415; 80053; 83735; 84439; 84443; 84484; 85025; 85379; 93005; 99283; 99285

== ENCOUNTER → 2025-01-26 13:05 | Outpatient (BNV) | payer OTHER, MEDICARE, SELFPAY | PROVIDERS: Emergency Provider Emergency Medicine; PCP Internal Medicine; Visit Provider Internal Medicine Cardiovascular Disease | DX: R94.31 Abnormal electrocardiogram [ECG] [EKG] (principal); R00.2 Palpitations | CPT/HCPCS: 93010 ==

== ENCOUNTER 2025-03-29 14:37 | Outpatient (AMB) | payer MEDICARE, OTHER, SELFPAY ==
[2025-03-29 14:47] VITALS: BP 132/78; PULSE 80; BMI 25.7
--- NOTE | 2025-03-29 14:47 | MHC.OFFVIS ---
Vital Signs 03/29/25 14:47 Height 5 ft 4 in Weight 150 lb BMI 25.7 BP 132/78 Blood Pressure Location Lt brachial Position Sitting Pulse 80 Pulse Source Pulse Oximeter Intake Visit Reasons: BB-OHQ-GH-Follow up- Palpitations Allergies No Known Allergies Allergy (Verified 01/26/25 13:17) Medication List - Last Reconciled 03/29/25 by Justyn Cavanaugh NP amlodipine 5 mg PO DAILY aspirin 81 mg PO DAILY atorvastatin 40 mg PO DAILY cyanocobalamin (vitamin B-12) 100 mcg IM QMONTH desvenlafaxine succinate ER 50 mg PO DAILY isosorbide mononitrate ER 30 mg PO DAILY lorazepam 0.5 mg PO BEDTIME PRN pantoprazole 40 mg PO DAILY sucralfate 1 g PO QID trazodone 50 - 100 mg PO DAILY PRN HPI Comments Details: This is a 64-year-old female patient referred to us after hospital discharge for ongoing palpitations. However, today patient states that since the hospital visits, patient was recently returning and [place] the airport where patient had worsening palpitations with lightheadedness and diaphoresis for which patient requested medic assistance at the airport. Patient was brought to [place] in [place] and states that in the ambulance patient was given nitroglycerin for questions of heart attack and underwent emergent cardiac catheterization that showed mild coronary disease. 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 We have no records of any of this at this time. Patient is reporting compliance with all her medications. Patient does have severe anxiety for which patient is currently on Pristiq however patient thinks that this is not working for her. Patient is also taking Ativan on a p.r.n. basis. Patient is reporting that she still has some palpitations but otherwise no exertional chest pain, shortness of breath, orthopnea, PND, leg edema, presyncope or syncope. [facility] Surgical History History of cardiac cath Family History Mother No problems noted. Father S/P triple vessel bypass Brother Stented coronary artery Sister No problems noted. Social History Alcohol intake: current Alcohol intake frequency: holidays/special occasions only Patient Tobacco Use Status: Never used Tobacco Review of Systems Const Denies weakness ENT Denies dizziness Card Denies chest pain, Denies chest pain with activity, Denies syncope, Denies rapid heart rate, Denies pedal edema, Denies edema, Denies leg edema, Denies lightheadedness, Reports palpitations, Denies dyspnea, Denies dyspnea on exertion and Denies orthopnea Resp Denies cough, Denies dyspnea and Denies dyspnea on exertion GI Denies hematochezia and Denies change in stool character Musc Denies abnormal gait, Denies muscle cramps, Denies muscle weakness, Denies numbness, Denies radiating pain into limb and Denies tingling Neuro Denies abnormal gait, Denies dizziness, Denies syncope, Denies numbness, Denies tingling and Denies weakness Endo Reports palpitations Physical Exam Vital Signs: Last Vital Signs Pulse 80 03/29/25 14:47 BP 132/78 03/29/25 14:47 BMI result Body Mass Index 25.7 Const General: cooperative, healthy appearing, comfortable and no acute distress Orientation/consciousness: patient oriented x3 HEENT Head: Yes normal to inspection Neck Neck: Yes normal visual inspection, Yes trachea midline and Yes supple Chest Chest palpation & inspection: normal inspection of the chest Resp Effort & Inspection: normal respiratory effort Auscultation: clear to auscultation bilaterally, no crackles, no rales, no rhonchi and no wheezes Cardio Jugular venous distension: no JVD Palpation: normal PMI Rate: regular rate Rhythm: regular rhythm Heart sounds: S1 normal heart sound present, S2 normal heart sound present, no click, no gallops, no murmurs and no rubs Peripheral pulses: Peripheral pulses 2+ throughout GI Inspection: Yes normal to inspection Palpation (GI): Soft to palpation Auscultation: normal bowel sounds Skin General skin exam: no rashes or lesions noted Neuro General: patient oriented x3 Extrem General: Yes normal to inspection, No no pedal edema and No calf tenderness Psych Appearance: grossly normal Mental Status: mental status grossly normal Speech and movement: Normal speech and movement present Assessment & Plan Assessment & Plan (1) Palpitations: Code(s): R00.2 - Palpitations Category: Medical (2) Takotsubo cardiomyopathy: Code(s): I51.81 - Takotsubo syndrome Category: Medical (3) S/P cardiac catheterization: Code(s): Z98.890 - Other specified postprocedural states Category: Medical (4) Hospital discharge follow-up: Code(s): Z09 - Encounter for follow-up examination after completed treatment for conditions other than malignant neoplasm Plan Patient was referred to Cardiology from emergency room here at [facility] where patient had visited couple of times for palpitations and was ruled out for ACS. However, recently patient states that she was at the airport where she had severe palpitations with lightheadedness and was assisted to the emergency room in [place] at [place]. Patient states that in the ambulance she was given nitro glycerin due to concerns about a heart attack on the EKG and was emergently taken in for cardiac catheterization that showed mild coronary artery disease. Right wrist catheterization site is well healed. Patient states that she later underwent an echocardiogram that showed takotsubo cardiomyopathy for which patient states that she was started on amlodipine and isosorbide. Unclear if patient is truly on these medications. We have no official records of any of this. We will request all records from [place] in regards to her recent admission. Blood pressure today is within normal limits. Continue current regimen until records retrieved. Given her reports of ongoing palpitations, we will get a Holter study to look for any potential arrhythmias. Advised on heart healthy diet, stress medication strategies, med compliance, and management of vascular risk factors. Emphasized on the need to address her anxiety with her primary care provider. No medication changes at this time. Depending on the discharge summary from her recent admission, we will plan to follow up. In the interim, patient will call the office with any concerns or change in symptoms. Advised to seek ER care in case of exertional chest pain not resolved with rest. This note was generated using voice recognition software. While every effort has been made to ensure accuracy and proper call box wirer, there may be occasional errors that could affect the content or meaning of the described symptoms. Orders: Orders ECG 3 day holter monitor 03/29/25 R00.2 - Palpitations Medications: Discontinued sodium phosphates 19-7 gram/118 mL (Fleet Enema) Discontinued Reason: Patient no longer taking 118 mL [place] DAILY PRN 133 mL 2RF constipation Coding Level of Care Code New Pt Level 4 (77707) Complex EM visit Add On G2211 Diagnoses Palpitations R00.2 Takotsubo cardiomyopathy I51.81 S/P cardiac catheterization Z98.890 Hospital discharge follow-up Z09 Time Spent (min) 35 Comment Time spent in reviewing the chart, test results, assessment, counseling and documentation.
--- OUTSIDE RECORDS SUMMARY | 2025-03-29 14:53 | XMS_ITS ---
Author Name [facility] Organization Unknown Results Test Name/Text Value Interpretation Date Range Source Trigl SerPl-mCnc 56.0 mg/dL 03/12/2025 - 150 C [facility] VLDLc SerPl Calc-mCnc 11.2 mg/dL 03/12/2025 [facility] LDLc SerPl Calc-mCnc 89.0 mg/dL 03/12/2025 50 - 130 [facility] Cholest SerPl-mCnc 173.0 mg/dL 03/12/2025 0 - 200 [facility] HDLc SerPl-mCnc 73.0 mg/dL 03/12/2025 35 - 96 CT _[facility] Troponin I SerPl HS-mCnc 466.0 ng/L Critically high 03/12/2025 0 - 14 [facility] Troponin I SerPl HS-mCnc 550.0 ng/L Critically high 03/12/2025 0 - 14 [facility] D Dimer PPP DDU-mCnc <150.0 ng/mL DDU 03/12/2025 - 231 [facility] Troponin I SerPl HS-mCnc 594.0 ng/L Critically high 03/12/2025 0 - 14 [facility] BUN SerPl-mCnc 14.0 mg/dL 03/12/2025 7 - 17 [facility]_ [facility] BUN/Creat SerPl 28.0 Above high normal 03/12/2025 12 - 20 [facility] eGFRcr SerPlBld CKD-EPI 2020 104.0 mL/min/1.73m2 03/12/2025 - [facility] Creat SerPl-mCnc 0.5 mg/dL 03/12/2025 0.5 - 1 CT _[facility] Potassium SerPl-sCnc 3.9 mmol/L 03/12/2025 3.5 - 5.1 [facility] Chloride SerPl-sCnc 105.0 mmol/L 03/12/2025 98 - 107 [facility] Sodium SerPl-sCnc 138.0 mmol/L 03/12/2025 135 - 14 5 [facility] Calcium SerPl-mCnc 8.4 mg/dL 03/12/2025 8.4 - 10.2 [facility] CO2 SerPl-sCnc 26.0 mmol/L 03/12/2025 24 - 32 CT _[facility] Anion Gap SerPl Calc-sCnc 7.0 03/12/2025 5 - 14 [facility] Glucose SerPl-mCnc 120.0 mg/dL 03/12/2025 70 - 199 [facility] Magnesium SerPl-mCnc 2.0 mg/dL 03/12/2025 1.7 - 2.8 [facility] Heparin Anti Xa Fld.NB-aCnc 0.5 I Unit/mL 03/12/2025 [facility] RDW RBC Auto 13.0 % 03/12/2025 12.1 - 16.2 CT_T [facility] Neutrophils NFr Bld Auto 62.5 % 03/12/2025 44 - 74 [facility] Lymphocytes NFr Bld Auto 24.8 % 03/12/2025 20 - 48 [facility] PMV Bld Auto 6.5 FL Below low normal 03/12/2025 7.4 - 11. 4 [facility] Lymphocytes # Bld Auto 1.5 K/mcL 03/12/2025 1 - 3.2 [facility] RBC # Bld Auto 3.48 M/mcL Below low normal 03/12/2025 4.2 - 5.4 [facility] Hct VFr Bld Auto 34.2 % Below low normal 03/12/2025 37 - 47 [facility] Monocytes # Bld Auto 0.7 K/mcL 03/12/2025 0 - 0.8 [facility] Basophils NFr Bld Auto 0.7 % 03/12/2025 0 - 2 [facility] MCHC RBC Auto-EntMCnc 34.3 g/dL 03/12/2025 32 - 36 [facility] Eosinophil NFr Bld Auto 0.4 % 03/12/2025 0 - 6 [facility] Neutrophils # Bld Auto 3.9 K/mcL 03/12/2025 1.8 - 7.8 [facility] MCH RBC Qn Auto 33.7 pcg Above high normal 03/12/2025 25 - 33 [facility] Platelet # Bld Auto 283.0 K/mcL 03/12/2025 150 - 450 [facility] WBC # Bld Auto 6.2 K/mcL 03/12/2025 4 - 10.5 [facility]_T [facility] Eosinophil # Bld Auto 0.0 K/mcL 03/12/2025 0 - 0.5 [facility] Hgb Bld-mCnc 11.7 g/dL Below low normal 03/12/2025 12.5 - 16 [facility] Basophils # Bld Auto 0.0 K/mcL 03/12/2025 0 - 0.2 [facility] Monocytes NFr Bld Auto 11.6 % 03/12/2025 2 - 12 [facility] RBC Auto 98.1 FL 03/12/2025 78 - 100 [facility] N Troponin I SerPl HS-mCnc 45.0 ng/L Above high normal 03/12/2025 0 - 14 [facility] aPTT PPP 28.8 sec 03/12/2025 25 - 37 [facility] N Heparin Anti Xa Fld.NB-aCnc 0.05 I Unit/mL 03/12/2025 [facility] Bld gp Ab Scn SerPl Ql Negative 03/12/2025 [facility] ABO Group Bld O 03/12/2025 [facility] Rh Bld Positive 03/12/2025 [facility] N Anion Gap SerPl Calc-sCnc 8.0 03/12/2025 5 - 14 [facility] Potassium SerPl-sCnc 3.8 mmol/L 03/12/2025 3.5 - 5.1 [facility] AST SerPl-cCnc 22.0 unit/L 03/12/2025 5 - 40 CT _[facility] Chloride SerPl-sCnc 102.0 mmol/L 03/12/2025 98 - 107 [facility] Bilirub SerPl-mCnc 0.3 mg/dL 03/12/2025 0.3 - 1 [facility] Creat SerPl-mCnc 0.7 mg/dL 03/12/2025 0.5 - 1 CT _[facility] ALT SerPl-cCnc 11.0 unit/L 03/12/2025 7 - 52 CT _[facility] eGFRcr SerPlBld CKD-EPI 2020 96.0 mL/min/1.73m2 03/12/2025 - [facility] BUN SerPl-mCnc 16.0 mg/dL 03/12/2025 7 - 17 [facility]_ [facility] CO2 SerPl-sCnc 26.0 mmol/L 03/12/2025 24 - 32 CT _[facility] Calcium SerPl-mCnc 9.1 mg/dL 03/12/2025 8.4 - 10.2 [facility] Glucose SerPl-mCnc 155.0 mg/dL 03/12/2025 70 - 199 [facility] ALP SerPl-cCnc 86.0 unit/L 03/12/2025 34 - 104 CT _[facility] Prot SerPl-mCnc 7.2 g/dL 03/12/2025 6.4 - 8.5 CT_ [facility] BUN/Creat SerPl 22.9 Above high normal 03/12/2025 12 - 20 [facility] Albumin SerPl-mCnc 4.2 g/dL 03/12/2025 3.5 - 5 [facility] Sodium SerPl-sCnc 136.0 mmol/L 03/12/2025 135 - 14 5 [facility] Magnesium SerPl-mCnc 1.9 mg/dL 03/12/2025 1.7 - 2.8 [facility] Troponin I SerPl HS-mCnc 28.0 ng/L Above high normal 03/12/2025 0 - 14 [facility] INR PPP 1.0 03/12/2025 0.8 - 1.1 [facility] N PT Bld 10.9 sec 03/12/2025 10.5 - 13.3 CT_[facility] RAN Hct VFr Bld Auto 39.9 % 03/12/2025 37 - 47 CT _[facility] RDW RBC Auto 12.8 % 03/12/2025 12.1 - 16.2 [facility] Lymphocytes # Bld Auto 3.8 K/mcL Above high normal 03/12/2025 1 - 3.2 [facility] RBC Auto 99.7 FL 03/12/2025 78 - 100 [facility] N Basophils # Bld Auto 0.1 K/mcL 03/12/2025 0 - 0.2 [facility] WBC # Bld Auto 6.9 K/mcL 03/12/2025 4 - 10.5 [facility] Lymphocytes NFr Bld Auto 55.4 % Above high normal 03/12/2025 20 - 48 [facility] Neutrophils # Bld Auto 2.2 K/mcL 03/12/2025 1.8 - 7.8 [facility] PMV Bld Auto 6.6 FL Below low normal 03/12/2025 7.4 - 11. 4 [facility] Eosinophil NFr Bld Auto 1.6 % 03/12/2025 0 - 6 [facility] Neutrophils NFr Bld Auto 32.4 % Below low normal 03/12/2025 44 - 74 [facility] Eosinophil # Bld Auto 0.1 K/mcL 03/12/2025 0 - 0.5 [facility] RBC # Bld Auto 4.0 M/mcL Below low normal 03/12/2025 4.2 - 5 .4 [facility] Monocytes # Bld Auto 0.7 K/mcL 03/12/2025 0 - 0.8 [facility] Hgb Bld-mCnc 13.3 g/dL 03/12/2025 12.5 - 16 [facility] MCH RBC Qn Auto 33.3 pcg Above high normal 03/12/2025 25 - 33 [facility] MCHC RBC Auto-EntMCnc 33.4 g/dL 03/12/2025 32 - 36 [facility] Platelet # Bld Auto 356.0 K/mcL 03/12/2025 150 - 450 [facility] Monocytes NFr Bld Auto 9.8 % 03/12/2025 2 - 12 [facility] Basophils NFr Bld Auto 0.8 % 03/12/2025 0 - 2 [facility] History of Medication Use Medication Directions Dispensed Refills Start Date End Date Stat ALPRAZolam (XANAX) tablet 0.25 mg 0.25 mg, oral, Once as needed, anxiety, Starting on Tue03/12/25 at 0521, For 1 dose 03/12/2025 03/12/2025 completed nitroglycerin (NITROSTAT) SL tablet 0.4 mg 0.4 mg, sublingual, Every 5 min PRN, chest pain, Starting on Tue03/11/25 at 2300, Give every 5 minutes as needed for chest pain to a maximum of 3 doses. Notify MD to obtain an order for an EKG if no relief after 3 doses or chest pain recurs. HOLD and notify MD if SBP less than 90 mmHg. Do not give i 03/12/2025 03/12/2025 aborted perflutren lipid microsphere (DEFINITY) 1.3 mL in sodium chloride 0.9% 8.7 mL injection 10 mL, intravenous, Administer over 10 Minutes, Once in imaging, Starting on Tue03/12/25 at 1138, For 1 dose, CV Medication Orders 03/12/2025 03/12/2025 completed acetaminophen (TYLENOL) tablet 650 mg 650 mg, oral, Every 6 hours PRN, mild pain, Starting on Tue03/12/25 at 1201 03/12/2025 active amLODIPine (NORVASC) 5 mg tablet Take 1 tablet (5 mg total) by mouth 1 (one) time each day. 03/12/2025 active aspirin 81 mg chewable tablet Chew 1 tablet (81 mg total) 1 (one) time each day. 03/12/2025 active atorvastatin (LIPITOR) 40 mg tablet Take 1 tablet (40 mg total) by mouth at bedtime. 03/12/2025 active desvenlafaxine succinate (PRISTIQ) 24 hr tablet 50 mg 50 mg, oral, Daily, First dose on Tue03/12/25 at 0900, Do not crush, chew, or split. 03/12/2025 active isosorbide mononitrate (IMDUR) 30 mg 24 hr tablet Take 1 tablet (30 mg total) by mouth 1 (one) time each day. Do not crush or chew. 03/12/2025 active metoprolol succinate (TOPROL-XL) 24 Hour tablet 12.5 mg 12.5 mg, oral, Daily, First dose on Tue03/12/25 at 0900, Do not crush or chew. 02/06/2025 03/12/2025 aborted sucralfate (CARAFATE) 1 gram tablet Take 1 tablet (1 g total) by mouth 4 (four) times a day. 03/12/2025 aborted traZODone (DESYREL) 50 mg tablet Take 1 tablet (50 mg total) by mouth at bedtime. 03/12/2025 aborted cyanocobalamin, vitamin B-12, 1,000 mcg/mL kit Inject 1,000 mcg as directed every 30 (thirty) days. active desvenlafaxine succinate (PRISTIQ) 50 mg 24 hr tablet Take 1 tablet (50 mg total) by mouth 1 (one) time each day. active LORazepam (ATIVAN) 0.5 mg tablet Take 1 tablet (0.5 mg total) by mouth every 6 (six) hours if needed for anxiety. Max Daily Amount: 2 mg active pantoprazole (PROTONIX) 40 mg EC tablet Take 1 tablet (40 mg total) by mouth 1 (one) time each day before breakfast. Do not crush, chew, or split. active Allergies Allergen Reaction Severity Comment Documented Date Source Statu s MORPHINE 10/16/2024 [facility] active ADHESIVE 06/07/2022 [facility] active Problems Problem Status Onset Date Problem Type Date of Resolution Source Anxiety and depression active 2025-03-12 ProblemAct [facility] CAD (coronary artery disease) active EncounterDiagnosisAct [facility]_ [facility] ACS (acute coronary syndrome) ([facility] V24, [facility] V28) active 2025-03-[address] [address] elevation myocardial infarction (STEMI), unspecified artery [place] [place] [facility] [place] active EncounterDiagnosisAct [facility] Irregular heart rate active 2025-03-12 ProblemAct [facility] Encounters Encounter Type Encounter Reason Primary Diagnosis Location Date Inpatient STEMI Acute ischemic h eart disease, unspecified [place] [place] [facility] [place] [facility] [place] 03/11/2025 Care Team Organization Name Specialty Phone Email Start Date End Da te [facility] 03/18/2025 [facility] 03/12/2025
--- OUTSIDE RECORDS SUMMARY | 2025-03-29 14:53 | XMS_ITS | Clinical Summary ---
Author Organization [facility] Address [address] [place] [address] Phone Care Team Providers Care Material Damage Adjuster Name Role Phone Sachin Keller MD Primary Care Provider [phone] Allergies Active Allergy Reactions Criticality Noted Date Comments Adhesive 06/07/2022 Morphine 10/16/2024 Medications desvenlafaxine succinate (PRISTIQ) 50 mg 24 hr tablet Take 1 tablet (50 mg total) by mouth 1 (one) time each day. Active cyanocobalamin, vitamin B-12, 1,000 mcg/mL kit Inject 1,000 mcg as directed every 30 (thirty) days. Active LORazepam (ATIVAN) 0.5 mg tablet Take 1 tablet (0.5 mg total) by mouth every 6 (six) hours if needed for anxiety. Max Daily Amount: 2 mg Active pantoprazole (PROTONIX) 40 mg EC tablet Take 1 tablet (40 mg total) by mouth 1 (one) time each day before breakfast. Do not crush, chew, or split. Active atorvastatin (LIPITOR) 40 mg tablet Take 1 tablet (40 mg total) by mouth at bedtime. 30 each 03/12/2025 4:16 PM EDT 5 03/13/20 26 Active aspirin 81 mg chewable tablet Chew 1 tablet (81 mg total) 1 (one) time each day. 30 each 03/12/2025 4:16 PM EDT 5 03/13/20 26 Active amLODIPine (NORVASC) 5 mg tablet Take 1 tablet (5 mg total) by mouth 1 (one) time each day. 30 each 03/12/2025 4:16 PM EDT 03/13/20 26 Active isosorbide mononitrate (IMDUR) 30 mg 24 hr tablet Take 1 tablet (30 mg total) by mouth 1 (one) time each day. Do not crush or chew. 30 each 03/12/2025 4:16 PM EDT 03/13/20 26 Active metoprolol succinate (TOPROL-XL) 25 mg 24 hr tablet Take 0.5 tablets (12.5 mg total) by mouth 1 (one) time each day. 03/12/20 25 Discontinu ed(Stop Taking at Discharge) traZODone (DESYREL) 50 mg tablet Take 1 tablet (50 mg total) by mouth at bedtime. 03/12/20 Discontinu ed(Stop Taking at Discharge) sucralfate (CARAFATE) 1 gram tablet Take 1 tablet (1 g total) by mouth 4 (four) times a day. 03/12/20 Discontinu ed(Stop Taking at Discharge) Active Problems Problem Noted Date Diagnosed Date Anxiety and depression 03/12/2025 Assessment & Plan (03/12/2025 12:14 AM EDT): - Can resume home dose desvenlafaxine Irregular heart rate 03/12/2025 Assessment & Plan (03/12/2025 12:14 AM EDT): - Currently on metoprolol succinate 12.5 mg daily. ACS (acute coronary syndrome) ([facility] V24, [facility]/ [facility] V28) 03/11/2025 Assessment & Plan (03/12/2025 12:14 AM EDT): -Status post cardiac catheterization today, noted to have mild 30-40% proximal LAD stenosis and no obstructive stenosis in any of the coronary vessels. LVEDP 10 mmHg, with suspected concern for coronary vasospasm given EKG changes. -As per cardiology team requested admission overnight to be continued on heparin drip and to obtain echocardiogram and serial troponin. -2D echocardiogram ordered -Will continue heparin drip as per cardiology recommendation -Continue to trend troponin until it peaks -Nitroglycerin as needed for chest pain -Continue post-cath care -Cardiac telemetry Encounters Date Type Department Care Team Description 03/11/2025 9:30 PM EDT - 03/11/2025 10:30 PM EDT Surgery [facility] Cardiac Spikemaking Supervisor [address] [place] [address] Bela Barclay MD Left heart cath / Coronary angiography 03/11/2025 8:42 PM EDT - 03/12/2025 7:18 PM EDT Hospital Encounter [facility] CV Surg Card 8-[address] [place] [address] Cyrus Staples MD Hussain, Aliza, MD Ishtiaq, Rizwan, MD Udit, Chitreaka, MD Jacob, Dennis P, MD ACS (acute coronary syndrome) ([facility] V24, [facility] V28) (Primary Dx); CAD (coronary artery disease); ST elevation myocardial infarction (STEMI), unspecified artery (CMS/HCC V24, CMS/[facility] V28); Coronary artery disease due to lipid rich plaque Discharge Disposition: Home or Self Care from Last 3 Months Surgical History Surgery Date Site/Laterality Comments OTHER SURGICAL HISTORY PROCEDURE: ---- OTHER ----; COMMENT: vaginal sling SC BREAST REDUCTION 07/25/2020 - 07/24/2021 Medical History [...] Sign Reading Time Taken Comments Blood Pressure 98/56 03/12/2025 4:07 PM EDT Pulse 67 03/12/2025 4:07 PM EDT Temperature 36.8 C (98.2 F) 03/12/2025 4:07 PM EDT Respiratory Rate 10 03/12/2025 4:07 PM EDT Oxygen Saturation 97% 03/12/2025 12: 05 PM EDT Inhaled Oxygen Concentration - - Weight 74.8 kg (164 lb 14.5 oz) 03/11/2025 8:54 PM EDT Height 162.6 cm (5' 4 ) 05/29/2024 2:37 PM EST Body Mass Index 28.31 05/29/2024 2:37 PM EST Plan of Treatment Health Maintenance Due Date Last Done Comments Cervical Cancer Screening: Pap Smear 1980 Pneumococcal Vaccine: 50+ Years (1 of 1 - PCV) 2009 Zoster Vaccines (1 of 2) 2009 Hepatitis C Screening 06/27/2022 Medicare Annual Wellness Visit 06/27/2022 Osteoporosis Screening (Bone Density Screening) 06/27/2022 Social Influencers of Health Screening 06/27/2022 Depression Screening 07/25/2024 COVID-19 Vaccine ( season) 2025 05/01/2024, 07/06/2023, 05/20/2022, Additional history exists Influenza Vaccine (#1) 2025 , 05/20/2022, 06/10/2021 Falls Risk Assessment 03/12/2026 03/12/2025 Hypertension/CHF/CAD Annual BMP Blood Test 03/12/2026 03/12/2025, 03/11/2025, 07/20/2022 Breast Cancer Screening 05/29/2026 05/29/20 24, 05/09/2023, 05/05/2022, Additional history exists Cholesterol Screening (Lipid Panel) 03/12/2030 03/12/2025 DTaP,Tdap,and Td Vaccines (3 - Td or Tdap) 03/16/2034 03/16/2024, 06/24/2018 Colorectal Cancer Screening: Colonoscopy 03/06/2035 03/06/2025 RSV Immunization Adult Patients Completed 07/06/2023 HIB [...] on patient's age to complete this topic Medical Devices Implanted Type Area Metal Reclamation Kettle Tender Device Identifier Shelf Expiration Date Model / Serial / Lot System Perclose Prostyle Suture Medicated - [id number] Implanted:Qt y: 1 on 03/11/2025 by Bela Barclay MD at [facility] Vascular Closure Devices N/A: [employer] [facility] [id number] 01/21/2027 [id number] / / [id number] Procedures Procedure Name Priority Date/Time Associated Diagnosis Comments TRANSTHORACIC ECHOCARDIOGRAM (TTE) COMPLETE W/ CONTRAST Today 03/12/2025 11:50 AM EDT ACS (acute coronary syndrome) (CMS/HCC V24, CMS/HCC V28) XR CHEST 2 VIEWS STAT 03/12/2025 10:2 2 AM EDT LIPID PANEL Add-On 03/12/2025 7:55 AM EDT TROPONIN I HIGH SENSITIVITY Timed 03/12/2025 7:55 AM EDT TROPONIN I HIGH SENSITIVITY Timed 03/12/2025 5:43 AM EDT D-DIMER Add-On 03/12/2025 3:43 AM EDT CBC WITH AUTO DIFFERENTIAL Routine 03/12/2025 3:43 AM EDT MAGNESIUM Routine 03/12/2025 3:43 AM EDT BASIC METABOLIC PANEL Routine 03/12/2025 3:43 AM EDT CBC AND DIFFERENTIAL Routine 03/12/2025 3:43 AM EDT HEPARIN AND LOW MOLECULAR WEIGHT ANTI XA LEVEL Timed 03/12/2025 3:43 AM EDT TROPONIN I HIGH SENSITIVITY Timed 03/12/2025 3:43 AM EDT LEFT HEART CATH / CORONARY ANGIOGRAPHY Routine 03/11/2025 10:49 PM EDT CAD (coronary artery disease) RHYTHM ECG, REPORT Routine 03/11/2025 9: 08 PM EDT RHYTHM ECG, REPORT Routine 03/11/2025 9: 07 PM EDT HEPARIN AND LOW MOLECULAR WEIGHT ANTI XA LEVEL STAT 03/11/2025 9:01 PM EDT ACTIVATED PARTIAL THROMBOPLASTIN TIME STAT 03/11/2025 9:01 PM EDT TROPONIN I HIGH SENSITIVITY Timed 03/11/2025 9:01 PM EDT TROPONIN I HIGH SENSITIVITY Timed 03/11/2025 8:55 PM EDT MAGNESIUM STAT 03/11/2025 8:55 PM EDT TYPE AND SCREEN STAT 03/11/2025 8:55 PM EDT PROTHROMBIN TIME WITH INR STAT 03/11/2025 8:55 PM EDT CBC WITH AUTO DIFFERENTIAL STAT 03/11/2025 8:55 PM EDT COMPREHENSIVE METABOLIC PANEL STAT 03/11/2025 8:55 PM EDT CBC AND DIFFERENTIAL STAT 03/11/2025 8:55 PM EDT ECG 12-LEAD STAT 03/11/2025 8:54 PM EDT ECG 12-LEAD STAT 03/11/2025 8:44 PM EDT SC CRITICAL CARE 30-74 MINUTES Routine 03/11/2025 8:40 PM EDT EXTERNAL ENDOSCOPY REPORT Routine 03/06/2025 9:59 AM EDT EXTERNAL COLONOSCOPY REPORT Routine 03/06/2025 9:58 AM EDT MG MAMMO DIGITAL SCREENING W VINCENT BILAT Routine 05/29/2024 2:55 PM EST Encounter for screening mammogram for breast cancer from Last 3 Months or Most Recently Relevant to Health Maintenance Results * (ABNORMAL) TRANSTHORACIC ECHOCARDIOGRAM (TTE) COMPLETE W/ CONTRAST (03/12/2025 11:50 AM EDT) LV EDV (A2C) 130 mL CV PACS LV EDV (A4C) 131 mL CV PACS LV Diastolic Volume (BP) 132(A) 46 - 106 mL CV PACS LV ESV (A2C) 64 mL CV PACS LV ESV (A4C) 65 mL CV PACS LV Systolic Volume (BP) 64(A) 14 - 42 mL CV PACS IVSD 1.0 0.6 - 0.9 cm CV PACS LVIDD 4.8 3.8 - 5.2 cm CV PACS LVIDS 3.1 2.2 - 3.5 cm CV PACS LVOT Diameter 1.9 cm CV PACS LVOT Mean Grad 3 mmHg CV PACS LVOT Peak VTI 27.0 cm CV PACS LVOT Mean Nick 0.9 m/s CV PACS LVOT Peak Nick 1.3 m/s CV PACS LVOT Peak Gradient 6 mmHg CV PACS LVPWD 0.9 0.6 - 0.9 cm CV PACS MV E' Tissue Velocity Lateral 7 cm/s CV PACS MV E' Tissue Velocity Septal 7 cm/s CV PACS Ejection Fraction (A2C) 51 % CV PACS Ejection Fraction (A4C) 50 % CV PACS Ejection Fraction (BP) 52 % CV PACS LVOT Area 2.8 cm2 CV PACS LVOT Stroke Volume 77 mL CV PACS Left Atrium Minor [place] 5.6 cm CV PACS Left Atrium Major [place] 5.4 cm CV PACS LA Area Sys (A2C) 19 cm2 CV PACS LA Area Sys (A4C) 20 cm2 CV PACS LA Volume (BP) 56 mL CV PACS RA Area 14.5 cm2 CV PACS RA 2D Volume 37 mL CV PACS AV Peak Nick 1.5 m/s CV PACS AV Peak Gradient 9 mmHg CV PACS AV Area Peak Velocity 2.3 cm2 CV PACS Aortic Root 2.7 cm CV PACS Ascending Aorta 2.8 cm CV PACS MV Deceleration [place] 2.8 m/s2 CV PACS E Wave Deceleration Time 254 119 - 242 ms CV PACS MV PHT 74 ms CV PACS MV Peak A Nick 0.80 m/s CV PACS MV Peak E Nick 0.70 m/s CV PACS MV Area PHT 3.0 cm2 CV PACS RV Diastolic Basal Dimension 4.2 2.5 - 4.1 cm CV PACS RV Diastolic Mid Dimension 2.6 1.9 - 3.5 cm CV PACS RV S' 14 cm/s CV PACS TAPSE 31 mm CV PACS TR Peak Velocity 2.16 m/s CV PACS TR Peak Gradient 19 mmHg CV PACS E/E' Ratio Septal 10 CV PACS E/E' Ratio Averaged 10 CV PACS Relative Wall Thickness ratio 0.38 CV PACS FS 35 % CV PACS LV Mass 2D 159 g CV PACS LVOT flow 255 mL/s CV PACS AV Velocity Ratio 0.87 CV PACS E/A Ratio 0.9 CV PACS E/E' Ratio Lateral 10 CV PACS Right Ventricular Peak Systolic Pressure 22 mmHg CV PACS Est. RA Pressure 3 mmHg CV PACS Anatomical Region Laterality Modality Ultrasound Narrative 03/12/2025 1:29 PM EDT Left ventricle cavity size is normal. Left ventricular systolic function is low normal. EF by 2D Gomez biplane is 52%. Regional LV wall motion abnormalities noted. See wall scoring diagram. 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 Left Ventricle Left ventricle cavity size is normal. Wall thickness is normal. Systolic function is low normal. The quantitative EF by 2D Gomez biplane is 52%. There is no diastolic dysfunction. Right Ventricle Right ventricle cavity appears normal. Systolic function is normal. Left Atrium Left atrium cavity size is normal. Right Atrium Right atrium cavity is normal. IVC/SVC Inferior vena cava structure is normal. RA pressures is estimated to be 3 mmHg (IVC diameter <21 mm and decreases >50% during inspiration). Mitral Valve Mitral valve structure is normal. There is trace regurgitation. There is no evidence of mitral valve stenosis. Tricuspid Valve Tricuspid valve structure is normal. There is trace regurgitation. There is no evidence of tricuspid valve stenosis. Aortic Valve The aortic valve is trileaflet. There is no regurgitation or stenosis. Pulmonic Valve Visualized portions of the pulmonic valve appear normal. There is trace pulmonic valve regurgitation. There is no evidence of pulmonic valve stenosis. Ascending Aorta The aorta appears normal in size. Pericardium Pericardium appears normal. Study Details Overall the study quality was adequate. Definity contrast was given to enhance imaging. Wall Scoring Baseline Score Index: 2.00 The following segments are hypokinetic: apical septal, apical lateral and apex. Other segments could not be evaluated. us Rolando Garber MD CV ECHO PROCEDURES Final Resul t * XR Chest 2 Views (03/12/2025 10:22 AM EDT) Anatomical Region Laterality Modality Body Radiographic Tonya ging 03/12/2025 10:2 5 AM EDT Impressions 03/12/2025 10:26 AM EDT 1. No acute process in the chest. -------- FINAL REPORT -------- Dictated By: Mauro Campbell Dictated Date: 03/12/2025 10:25 ET Assigned Physician: Mauro Campbell Reviewed and Electronically Signed By: Mauro Campbell Signed Date: 03/12/2025 10:26 ET Workstation ID: [id number] Transcribed By: Self Edit Transcribed Date: 03/12/2025 10:25 ET Narrative 03/12/2025 10:26 AM EDT EXAM: XR CHEST 2 VIEWS 03/12/2025 10:12 AM HISTORY: 64 years Female STEMI & NSTEMI mocard infrc TECHNIQUE: XR CHEST 2 VIEWS COMPARISON: None. FINDINGS: Normal sized heart. No consolidation. No effusion. Negative for pneumothorax. Negative for acute osseous abnormality, lytic or blastic lesion. Procedure Note Mauro Campbell MD - 03/12/2025 EXAM: XR CHEST 2 VIEWS 03/12/2025 10:12 AM HISTORY: 64 years Female STEMI & NSTEMI mocard infrc TECHNIQUE: XR CHEST 2 VIEWS COMPARISON: None. FINDINGS: Normal sized heart. No consolidation. No effusion. Negative for pneumothorax. Negative for acute osseous abnormality, lytic or blastic lesion. IMPRESSION: 1. No acute process in the chest. -------- FINAL REPORT -------- Dictated By: Mauro Campbell Dictated Date: 03/12/2025 10:25 ET Assigned Physician: Mauro Campbell Reviewed and Electronically Signed By: Mauro Campbell Signed Date: 03/12/2025 10:26 ET Workstation ID: [id number] Transcribed By: Self Edit Transcribed Date: 03/12/2025 10:25 ET Licha Rehman MD IMG XR PROCEDURES Final Result * (ABNORMAL) Troponin I high sensitivity (03/12/2025 7:55 AM EDT) Only the most recent of5 resultswithin the time period is included. High Sensitivity Troponin I 466(HH) 0 - 14 ng/L LAB CHEMISTRY METHOD 03/12/2025 9:37 AM EDT [facility] Comment:Verified by repeat a nalysis Blood Venous blood specimen / Unknown Venipuncture / Unknown 03/12/2025 7:55 AM EDT 03/12/2025 8:05 AM EDT Narrative [facility] - 03/12/2025 9:37 AM EDT HSTnI results stratify to HIGH RISK category if any value >100 ng/L or delta at 1 hour is greater than or equal to 15 ng/L (male and female). Note: Delta values are not applicable if symptoms began more than 12 hours pre-arrival. Risk stratification should include the calculation of the HEART score. The testing method is an immunoenzymatic assay manufactured by [employer] and performed on the [employer] D[employer]I 800. us Licha Rehman MD LAB BLOOD ORDERABLES Final Res ult Performing Organization Address City/[facility]/ZIP Co de Phone Number [facility] [address] [place] [address], [place] [phone] * Lipid panel (03/12/2025 7:55 AM EDT) [facility] Cholesterol 173 0 - 200 mg/dL LAB CHEMISTRY METHOD 03/12/2025 1:25 PM EDT [facility] Triglycerides 56 <150 mg/dL LAB CHEMISTRY METHOD 03/12/2025 1:25 PM EDT [facility] HDL 73 35 - 96 mg/dL LAB CHEMISTRY METHOD 03/12/2025 1:25 PM EDT [facility] LDL Calculated 89 50 - 130 mg/dL LAB CHEMISTRY METHOD 03/12/2025 1:25 PM EDT [facility] VLDL Cholesterol Juan Carlos 11.2 mg/dL LAB CHEMISTRY METHOD 03/12/2025 1:25 PM EDT [facility] Comment:No established refer ence range. Blood Venous blood specimen / Unknown Venipuncture / Unknown 03/12/2025 7:55 AM EDT 03/12/2025 8:05 AM EDT us Bela Barclay MD LAB BLOOD ORDERABLES Final Resu lt Performing Organization Address [facility]/ZIP Co de Phone Number [facility] [address] [place] [address], [place] [phone] * (ABNORMAL) CBC auto differential (03/12/2025 3:43 AM EDT) Only the most recent of2 resultswithin the time period is included. [facility] WBC 6.2 4.0 - 10.5 K/mcL LAB HEMETOLOGY METHOD 03/12/2025 4:00 AM EDT [facility] RBC 3.48(L) 4.20 - 5.40 M/mcL LAB HEMETOLOGY METHOD 03/12/2025 4:00 AM EDT [facility] Hemoglobin 11.7(L) 12.5 - 16.0 g/dL LAB HEMETOLOGY METHOD 03/12/2025 4:00 AM EDT [facility] Hematocrit 34.2(L) 37.0 - 47.0 % LAB HEMETOLOGY METHOD 03/12/2025 4:00 AM EDT [facility] MCV 98.1 78.0 - 100.0 FL LAB HEMETOLOGY METHOD 03/12/2025 4:00 AM EDT [facility] MCH 33.7(H) 25.0 - 33.0 pcg LAB HEMETOLOGY METHOD 03/12/2025 4:00 AM EDT [facility] MCHC 34.3 32.0 - 36.0 g/dL LAB HEMETOLOGY METHOD 03/12/2025 4:00 AM EDT [facility] RDW 13.0 12.1 - 16.2 % LAB HEMETOLOGY METHOD 03/12/2025 4:00 AM EDT [facility] Platelets 283 150 - 450 K/mcL LAB HEMETOLOGY METHOD 03/12/2025 4:00 AM EDT [facility] MPV 6.5(L) 7.4 - 11.4 FL LAB HEMETOLOGY METHOD 03/12/2025 4:00 AM EDT [facility] Neutrophils Relative 62.5 44.0 - 74.0 % LAB HEMETOLOGY METHOD 03/12/2025 4:00 AM EDT [facility] Lymphocytes Relative 24.8 20.0 - 48.0 % LAB HEMETOLOGY METHOD 03/12/2025 4:00 AM EDT [facility] Monocytes Relative 11.6 2.0 - 12.0 % LAB HEMETOLOGY METHOD 03/12/2025 4:00 AM EDT [facility] Eosinophils Relative 0.4 0.0 - 6.0 % LAB HEMETOLOGY METHOD 03/12/2025 4:00 AM EDT [facility] Basophils Relative 0.7 0.0 - 2.0 % LAB HEMETOLOGY METHOD 03/12/2025 4:00 AM EDT [facility] Neutrophils Absolute 3.90 1.80 - 7.80 K/mcL LAB HEMETOLOGY METHOD 03/12/2025 4:00 AM EDT [facility] Lymphocytes Absolute 1.50 1.00 - 3.20 K/mcL LAB HEMETOLOGY METHOD 03/12/2025 4:00 AM EDT [facility] Monocytes Absolute 0.70 0.00 - 0.80 K/mcL LAB HEMETOLOGY METHOD 03/12/2025 4:00 AM EDT [facility] Eosinophils Absolute 0.00 0.00 - 0.50 K/mcL LAB HEMETOLOGY METHOD 03/12/2025 4:00 AM EDT [facility] Basophils Absolute 0.00 0.00 - 0.20 K/mcL LAB HEMETOLOGY METHOD 03/12/2025 4:00 AM EDT [facility] Blood Venous blood specimen / Unknown Venipuncture / Unknown 03/12/2025 3:43 AM EDT 03/12/2025 3:50 AM EDT us Licha Rehman MD LAB BLOOD ORDERABLES Final Res ult [facility] [address] [place] [address], * Anti-Xa - Every 6 Hours (03/12/2025 3:43 AM EDT) Only the most recent of2 resultswithin the time period is included. Heparin Anti-Xa 0.50 I Unit/mL LAB COAGULATION METHOD 03/12/2025 4:14 AM EDT [facility] Blood Venous blood specimen / Unknown Venipuncture / Unknown 03/12/2025 3:43 AM EDT 03/12/2025 3:50 AM EDT [facility] - 03/12/2025 4:14 AM EDT Therapeutic Ranges Heparin Thromboembolic/Standard/Full Dose Protocol: Age 18+ Years 0.30-0.70 IU/mL Age 0-17 Years 0.35-0.70 IU/mL Heparin Cardiac/Low Dose Protocol: 0.30-0.5 IU/mL Low Molecular Weight Heparin: Age 18+ Years 0.50-1.50 IU/mL Age 0-17 Years 0.50-1.00 IU/mL us Licha Rehman MD LAB BLOOD ORDERABLES Final Res ult [facility] [address] [place] [id number], [place] [phone] * D-Dimer (03/12/2025 3:43 AM EDT) D-Dimer, Quant (D-DU) <150 <231 ng/mL DDU LAB COAGULATION METHOD 03/12/2025 11:58 AM EDT [facility] Blood Venous blood specimen / Unknown Venipuncture / Unknown 03/12/2025 3:43 AM EDT 03/12/2025 3:50 AM EDT [facility] - 03/12/2025 11:58 AM EDT This assay has been approved by the Food and Drug Administration (FDA) for use in excluding low and moderate risk patients suspected of venous thromboembolism, including deep vein thrombosis (DVT) and pulmonary embolism (PE) when used in conjunction with a clinical Pre test Probability model such as Wells, et al. The D Dimer result should not be used alone to rule in DVT and or PE. Rolando Garber MD LAB BLOOD ORDERABLES Final Res ult Performing Organization Address [facility]/ZIP Co de Phone Number [facility] [address] [place] [address], [place] [phone] * Magnesium (03/12/2025 3:43 AM EDT) Only the most recent of2 resultswithin the time period is included. Magnesium 2.0 1.7 - 2.8 mg/dL LAB CHEMISTRY METHOD 03/12/2025 4:30 AM EDT [facility] Blood Venous blood specimen / Unknown Venipuncture / Unknown 03/12/2025 3:43 AM EDT 03/12/2025 3:50 AM EDT Licha Rehman MD LAB BLOOD ORDERABLES Final Res ult Performing Organization Address [facility] Co de Phone Number [facility] [address] [place] [address], [place] [phone] * (ABNORMAL) Basic metabolic panel (03/12/2025 3:43 AM EDT) Sodium 138 135 - 145 mmol/L LAB CHEMISTRY METHOD 03/12/2025 4:30 AM EDT [facility] Potassium 3.9 3.5 - 5.1 mmol/L LAB CHEMISTRY METHOD 03/12/2025 4:30 AM EDT [facility] Chloride 105 98 - 107 mmol/L LAB CHEMISTRY METHOD 03/12/2025 4:30 AM EDT [facility] CO2 26 24 - 32 mmol/L LAB CHEMISTRY METHOD 03/12/2025 4:30 AM EDT [facility] Anion Gap 7 5 - 14 LAB CHEMISTRY METHOD 03/12/2025 4:30 AM EDT [facility] Glucose 120 70 - 199 mg/dL LAB CHEMISTRY METHOD 03/12/2025 4:30 AM EDT [facility] BUN 14 7 - 17 mg/dL LAB CHEMISTRY METHOD 03/12/2025 4:30 AM EDT [facility] Creatinine 0.50 0.50 - 1.00 mg/dL LAB CHEMISTRY METHOD 03/12/2025 4:30 AM EDT [facility] eGFR 104 >=60 mL/min/1. 73m2 LAB CHEMISTRY METHOD 03/12/2025 4:30 AM EDT [facility] Comment:Calculation based on the Chronic Kidney Disease Epidemiology Collaboration (CKD-EPI) equation refit without adjustment for race. BUN/Creatinine Ratio 28.0(H) 12.0 - 20.0 LAB CHEMISTRY METHOD 03/12/2025 4:30 AM EDT [facility] Calcium 8.4 8.4 - 10.2 mg/dL LAB CHEMISTRY METHOD 03/12/2025 4:30 AM EDT [facility] Blood Venous blood specimen / Unknown Venipuncture / Unknown 03/12/2025 3:43 AM EDT 03/12/2025 3:50 AM EDT us Licha Rehman MD LAB BLOOD ORDERABLES Final Res ult [facility] [address] [place] [address], [place] [phone] * LEFT HEART CATH / CORONARY ANGIOGRAPHY (03/11/2025 10:49 PM EDT) Anatomical Region Laterality Modality X-Ray Angiograph y Narrative 03/12/2025 9:40 AM EDT Impression: Mild 30-40% stenosis in proximal LAD Rest of the vessel with no obstructive coronary artery disease Presentation likely coronary vasospasm Normal left sided filling pressure, LVEDP 10 mmHg Recommendations: Patient to be monitored on telemetry unit for routine postprocedural monitoring Monitor for access site complications. Neurovascular care for right femoral access Bedrest for 4 hours Echocardiogram in morning Trend troponin Consider long acting nitrate or calcium channel milka for antianginal therapy Coronary Findings Diagnostic Dominance: Right Left Main: The vessel was visualized by angiography, is large and is angiographically normal. Short left main gives off LAD and LCX. Left Anterior Descending: The vessel was visualized by angiography and is large. Proximal LAD with tubular smooth 30-40% stenosis. Mid LAD is bifid (dual LAD) system. Septal LAD is shorter and diagonal LAD larger and longer and reaches apex with on significant stenosis. Left Circumflex: The vessel was visualized by angiography and is large. The vessel exhibits minimal luminal irregularities. LCX gives off one OM branch with no angiographic stenosis. Right Coronary Artery: The vessel was visualized by angiography and is large. The vessel exhibits minimal luminal irregularities. RCA is dominant vessel gives off PD and PL branches with no angiographic stenosis. Intervention No interventions have been documented. Cath Recommendations Recommendations: routine post-cath care. Clinical Background Mellisa Blackmon is a 64 y.o. female with no significant cardiac risk factors except for family history of early CAD called EMS for acute onset of chest pain, [place] ECG on en route by EMS with DOLLY in 1 and AVL and V1-V3 reciprocal ST depression in inferior leads. DOLLY normalized on ECG on arrival to ER. She presents for urgent cardiac catherization given ongoing chest pain and dyspnea. Procedure Details Indication: STEMI Procedure(s) Selective coronary angiography Left heart catherization Ultrasound guided vascular access Iliac arteriogram Access site: [facility] Procedure details: The risks, benefits, complications, treatment options, and expected outcomes were discussed with the patient and/or family prior to the procedure. The patient and/or family concurred with the proposed plan, giving informed consent. Patient was evaluated for moderate sedation and felt to be an appropriate candidate. She was brought to the optical laboratory manager for cardiac catherization. She was prepped and draped in the usual manner. A time out was performed. The right common femoral artery was accessed under local anesthesia using a micropuncture technique. Ultrasound guidance was used to confirm appropriate access and needle entering the PROFESSOR OF LITERATURE. A 6 Icelandic arterial sheath was inserted without difficulty. Diagnostic coronary angiography was performed using standard Jose catheters. A 6 Icelandic JL 4 catheter was used to engage the left main coronary artery. A 6 Icelandic JR 4 catheter was used to engage the right coronary artery. Multiple angiographic views were obtained for full visualization of the coronary anatomy. A 6 FR JR 4 catheter was then advanced across the aortic valve into the left ventricle under fluoroscopic guidance. Left ventricular pressure was recorded, and the left ventricular end-diastolic pressure (LVEDP) was measured accurately. The cathetor was pulled back into the aorta to measure gradient across the aortic valve. At the end of the procedure, all sheaths and catheters were removed. Hemostasis was achieved with holding manual pressure at the arterial site Hemodynamics: Pressures: LV: 128 mmHg LVEDP: 10 mmHg No significant gradient on LV-Ao pullback Complications: Patient tolerated the procedure well with no complications. She remained electrically and hemodynamically stable throughout the procedure. Estimated blood loss: <10 cc Bela Barclay MD CV CARDIAC CATH PROCEDURES Sagrario l Result * RHYTHM ECG, REPORT (03/11/2025 9:08 PM EDT) Only the most recent of2 resultswithin the time period is included. Narrative Cyrus Staples MD - 03/11/2025 9:08 PM EDT Cyrus Staples MD 03/11/2025 9:28 PM ECG Rhythm Interpretation and Report Date/Time: 03/11/2025 9:08 PM Performed by: Cyrus Staples MD Authorized by: Cyrus Staples MD ECG interpreted by ED Physician in the absence of a academic physician: yes Previous ECG: Previous ECG: Compared to current Similarity: Changes noted Comparison ECG info: 03/11/2025 Interpretation: Interpretation: non-specific Rate: ECG rate: 80 ECG rate assessment: normal Rhythm: Rhythm: sinus rhythm Ectopy: Ectopy: none QRS: QRS axis: Normal QRS intervals: Normal QRS conduction: normal ST segments: ST segments: Normal T waves: T waves: non-specific Comments: Improvement from prior EKG of today, somewhat similar to EKG from 2021, no STEMI us Cyrus Staples MD ECG ORDERABLES Edited Result - Final * Activated Partial Thromboplastin Time - STAT (03/11/2025 9:01 PM EDT) aPTT 28.8 25.0 - 37.0 sec LAB COAGULATION METHOD 03/11/2025 9:31 PM EDT [facility] Blood Venous blood specimen / Unknown Venipuncture / Unknown 03/11/2025 9:01 PM EDT 03/11/2025 9:09 PM EDT us Cyrus Staples MD LAB BLOOD ORDERABLES Final Res ult Performing Organization Address City/[facility]/ZIP Co de Phone Number [facility] [address] [place] [address], [place] [phone] * Prothrombin time with INR (03/11/2025 8:55 PM EDT) Protime 10.9 10.5 - 13.3 sec LAB COAGULATION METHOD 03/11/2025 9:28 PM EDT [facility] INR 1.0 0.8 - 1.1 LAB COAGULATION METHOD 03/11/2025 9:28 PM EDT [facility] Blood Venous blood specimen / Unknown Venipuncture / Unknown 03/11/2025 8:55 PM EDT 03/11/2025 9:01 PM EDT Narrative [facility] - 03/11/2025 9:28 PM EDT Std. Therapy 2.0-3.0 INR High Dose Therapy 3.0-4.5 INR Ranges may vary depending on clinical indications and protocol. us Cyrus Staples MD LAB BLOOD ORDERABLES Final Res ult [facility] [address] [place] [address], [place] [phone] * Type and screen (03/11/2025 8:55 PM EDT) ABO Group O 03/11/2025 10:30 PM EDT [facility] Rh Type Positive 03/11/2025 10:30 PM EDT [facility] Antibody Screen Negative 03/11/2025 10:30 PM EDT [facility] Blood Venous blood specimen / Unknown Venipuncture / Unknown 03/11/2025 8:55 PM EDT 03/11/2025 9:01 PM EDT us Cyrus Staples MD LAB BLOOD BANK TEST ORDERABLES Final Result [facility] [address] [place] [address], [place] [phone] * (ABNORMAL) Comprehensive metabolic panel (03/11/2025 8:55 PM EDT) Sodium 136 135 - 145 mmol/L LAB CHEMISTRY METHOD 03/11/2025 9:58 PM EDT [facility] Potassium 3.8 3.5 - 5.1 mmol/L LAB CHEMISTRY METHOD 03/11/2025 9:58 PM EDT [facility] Comment:Slightly Hemolyzed Chloride 102 98 - 107 mmol/L LAB CHEMISTRY METHOD 03/11/2025 9:58 PM EDT [facility] CO2 26 24 - 32 mmol/L LAB CHEMISTRY METHOD 03/11/2025 9:58 PM EDT [facility] Anion Gap 8 5 - 14 LAB CHEMISTRY METHOD 03/11/2025 9:58 PM EDT [facility] Glucose 155 70 - 199 mg/dL LAB CHEMISTRY METHOD 03/11/2025 9:58 PM EDT [facility] BUN 16 7 - 17 mg/dL LAB CHEMISTRY METHOD 03/11/2025 9:58 PM EDT [facility] Creatinine 0.70 0.50 - 1.00 mg/dL LAB CHEMISTRY METHOD 03/11/2025 9:58 PM EDT [facility] eGFR 96 >=60 mL/min/1. 73m2 LAB CHEMISTRY METHOD 03/11/2025 9:[address] [facility] Comment:Calculation based on the Chronic Kidney Disease Epidemiology Collaboration (CKD-EPI) equation refit without adjustment for race. BUN/Creatinine Ratio 22.9(H) 12.0 - 20.0 LAB CHEMISTRY METHOD 03/11/2025 9:58 PM EDT [facility] Calcium 9.1 8.4 - 10.2 mg/dL LAB CHEMISTRY METHOD 03/11/2025 9:58 PM EDT [facility] AST (SGOT) 22 5 - 40 unit/L LAB CHEMISTRY METHOD 03/11/2025 9:58 PM EDT [facility] Comment:Slightly Hemolyzed ALT (SGPT) 11 7 - 52 unit/L LAB CHEMISTRY METHOD 03/11/2025 9:58 PM EDT [facility] Alkaline Phosphatase 86 34 - 104 unit/L LAB CHEMISTRY METHOD 03/11/2025 9:58 PM EDT [facility] Total Protein 7.2 6.4 - 8.5 g/dL LAB CHEMISTRY METHOD 03/11/2025 9:58 PM EDT [facility] Albumin 4.2 3.5 - 5.0 g/dL LAB CHEMISTRY METHOD 03/11/2025 9:58 PM EDT [facility] Total Bilirubin 0.3 0.3 - 1.0 mg/dL LAB CHEMISTRY METHOD 03/11/2025 9:58 PM EDT [facility] Blood Venous blood specimen / Unknown Venipuncture / Unknown 03/11/2025 8:55 PM EDT 03/11/2025 9:01 PM EDT us Cyrus Staples MD LAB BLOOD ORDERABLES Final Res ult [facility] [address] [place] [address], [place] [phone] * ECG 12 lead (03/11/2025 8:54 PM EDT) Only the most recent of2 resultswithin the time period is included. Ventricular Rate ECG 78 BPM GEMUSE Atrial Rate 78 BPM GEMUSE P-R Interval 136 ms GEMUSE QRS Duration 94 ms GEMUSE Q-T Interval 426 ms GEMUSE QTc 485 ms GEMUSE P Wave [place] 72 degrees GEMUSE R [place] 54 degrees GEMUSE T [place] 51 degrees GEMUSE ECG Interpretation Normal sinus rhythm Prolonged QTc Abnormal ECG When compared with ECG of 11-MAR-2025 20:44, (Unconfirmed) No significant change was found Confirmed by Jenn Gallagher ([id number]) on 03/12/2025 9:17:14 AM GEMUSE 03/11/2025 8:54 PM EDT 03/12/2025 9:17 AM EDT us Cyrus Staples MD ECG ORDERABLES Final Result GEMUSE * SC CRITICAL CARE 30-74 MINUTES (03/11/2025 8:40 PM EDT) Narrative Cyrus Staples MD - 03/11/2025 8:40 PM EDT Cyrus Staples MD 03/11/2025 9:28 PM Critical Care Performed by: Cyrus Staples MD Authorized by: Cyrus Staples MD Critical care provider statement: Critical care time (minutes): 45 Total face to face critical care time (minutes): 30 Critical care was necessary to treat or prevent imminent or life-threatening deterioration of the following conditions: Cardiac failure (STEMI) Critical care was time spent personally by me on the following activities: Discussions with consultants, evaluation of patient's response to treatment, examination of patient, re-evaluation of patient's condition, pulse oximetry and ordering and review of laboratory studies Face to face critical care was time spent personally by me on the following activities: Evaluation of patient's response to treatment, examination of patient, re-evaluation of patient's condition and pulse oximetry us Cyrus Staples MD IN CLINIC/BEDSIDE ORDERABLES F inal Result * External Endoscopy (03/06/2025 9:59 AM EDT) Anatomical Region Laterality Modality Endoscopy us Historical Provider MD MELVIN~PROCEDURE ORDERABLES F inal Result * External Colonoscopy Report (03/06/2025 9:58 AM EDT) Anatomical Region Laterality Modality Endoscopy Historical Provider MD MELVIN~PROCEDURE ORDERABLES F inal Result * MG Mammo Digital Screening w Vincent [...] Signed Date: 05/29/2024 15:36 ET Workstation ID: [id number] Transcribed By: Self Edit Transcribed Date: 05/29/2024 [...] Signed Date: 05/29/2024 15:36 ET Workstation ID: [id number] Transcribed By: Self Edit Transcribed Date: 05/29/2024 15:30 ET Sachin Keller MD IMG BI PROCEDURES Final Result from Last 3 Months or Most Recently Relevant to Health Maintenance Insurance [employer] ADVANTAGE MEDICARE Advance Directives * Full Code - Default (Latest Code Status on File) Date Activated Date Inactivated Comments 03/11/2025 10:59 PM 03/12/2025 9:18 PM This is ord er is used when code status has not been discussed with the patient, or code status is otherwise unknown/unconfirmed To update the patient's code status, place a code status order. Do not modify or discontinue any currently active code status orders. Care Teams Material Damage Adjuster Relationship Specialty Start Date End Date Sachin Keller MD PCP - General Internal Medicine 05/12/24
--- OUTSIDE RECORDS SUMMARY | 2025-03-29 14:53 | XMS_ITS | Clinical Summary ---
Author Organization [facility] Address [address] [place] [address] Phone Care Team Providers Care Sales Incentive Analyst Name Role Phone Sachin Keller MD Primary Care Provider [phone] Allergies Active Allergy Reactions Criticality Noted Date Comments Adhesive 06/07/2022 Morphine 10/16/2024 Medications CYANOCOBALAMIN, VITAMIN B-12, (VITAMIN B-12 INJ) Inject into the muscle every 30 (thirty) days. Active traMADoL (ULTRAM) 50 mg tabletIndicatio ns:Left wrist pain,Other closed intra-articular fracture of distal end of left radius, initial encounter Take 1-2 tablets by mouth every 4-6 hours as needed for pain, maximum 400 mg/day. Patient may request partial refill. 30 tablet 2 Active sucralfate (CARAFATE) 1 gram tablet TAKE 1 TABLET BY MOUTH THREE TIMES DAILY 1 HOUR BEFORE MEALS AND AT BEDTIME ON AN EMPTY STOMACH 2 Active BD LUER-TIFF SYRINGE 3 mL 25 gauge x 1 Syrg USE WITH VITAMIN B12 INJECTIONS 2 Active traZODone (DESYREL) 50 MG tablet Take 50 mg by mouth nightly at bedtime. 2 Active desvenlafaxine succinate (PRISTIQ) 50 MG 24 hr tablet Take 1 tablet by mouth every morning. 4 Active pantoprazole (PROTONIX) 40 MG tablet 4 Active Active Problems No known active problems Immunizations Immunization Administration Dates Next Due Influenza Quadrivalent Preservative Free IM 05/25 Tdap 06/24/2018 Social History Tobacco Use Types Packs/Day Years Used Date Smoking Tobacco: Never Smokeless Tobacco: Never Tobacco Cessation:Counseling Given: Not Answered Alcohol Use Standard Drinks/Week Comments Yes 4 (1 standard drink = 0.6 oz pur e alcohol) weekends Education Answer Date Recorded Are you interested in more education? Not on krishna e 11/19/2022 Are you concerned about learning? Not on file 11/19/2022 No 11/19/2022 No 11/19/2022 Digital Access Answer Date Recorded No 12/18/2022 No 12/18/2022 Reliable internet access at home? Not on file 12/18/2022 Device with a working camera? Not on file Comments No Sex and Gender Information Value Date Recorded Sex Assigned at Female 08/01/2017 9:38 AM EST Legal Sex Female 9:49 PM EDT Gender Identity Female 08/01/2017 9:38 AM EST Sexual Orientation Straight 08/01/2017 9: 38 AM EST Last Filed Vital Signs Vital Sign Reading Time Taken Comments Blood Pressure 111/77 10/26/2024 12:08 PM EDT Pulse 58 10/26/2024 12:08 PM EDT Temperature 36.8 C (98.2 F) 10/26/2024 12:08 PM EDT Respiratory Rate 16 10/26/2024 12:08 PM EDT Oxygen Saturation 98% 10/26/2024 12:08 PM EDT Inhaled Oxygen Concentration - - Weight 74.8 kg (165 lb) 06/12/2022 3:20 PM EST Height 162.6 cm (5' 4 ) 06/12/2022 3:20 PM EST Body Mass Index 28.32 06/12/2022 3:20 PM EST Plan of Treatment Health Maintenance Due Date Last Done Comments LIPID PANEL 1959 DEPRESSION SCREENING 1971 HEPATITIS C SCREENING 1977 HIV ONE-TIME SCREENING (18-65 YEARS) 1977 SCREENING FOR DIABETES 1994 COLOGUARD 2004 COLONOSCOPY 2004 COLORECTAL CANCER SCREENING 2004 FIT TEST 2004 FOBT 2004 SIGMOIDOSCOPY 2004 VIRTUAL COLONOSCOPY 2004 PNEUMOCOCCAL VACCINES (50+ years) (1 of 1 - PCV) 2009 ZOSTER VACCINES (1 of 2) 2009 OSTEOPOROSIS SCREENING INITIAL (ONE-TIME) 2024 INFLUENZA VACCINE (#1) 2025 06/10/2021 COVID-19 VACCINE ( - 2024- season) 2025 12/08/2021, 06/10/2021, 10/01/2020, Additional history exists MAMMOGRAM 05/29/2026 05/29/2024, 05/29/2024 Adult Td,Tdap Booster 06/24/2028 06/24/2018 RSV VACCINE (1 - 1-dose 75+ series) 2034 SMOKING STATUS SCREENING (Once After 26 Yrs) Completed 06/20/2024 HEPATITIS A VACCINES Aged Out No long er eligible based on patient's age to complete this topic HIB VACCINES Aged Out No longer eligi ble based on patient's age to complete this topic MENINGOCOCCAL VACCINES (ACWY) Aged Out No longer eligible based on patient's age to complete this topic MENINGOCOCCAL VACCINES (B) Aged Out N o longer eligible based on patient's age to complete this topic Medical Devices Not on file Insurance [facility] [place], [place] [address] [place] [address] [place] [address] [facility] Care Teams Sales Incentive Analyst Relationship Specialty Start Date End Date Sachin Keller MD PCP - General Internal Medicine 06/20/24 Additional Source Comments The information contained in this document represents components of the legal health record. It is not the complete legal health record.[facility]ly [facility]
== END 2025-03-29 15:40 | disposition home or self-care (01) ==
LOC: HO.HCS 14:38
PROVIDERS: PCP Internal Medicine
DX: R00.2 Palpitations (principal); I51.81 Takotsubo syndrome; Z98.890 Other specified postprocedural states; Z09 Encounter for follow-up examination after completed treatment for conditions other than malignant neoplasm
CPT/HCPCS: 99204; G2211

== ENCOUNTER → 2025-03-29 14:37 | Outpatient (BNVA) | payer MEDICARE, OTHER, SELFPAY | PROVIDERS: PCP Internal Medicine | DX: R00.2 Palpitations (principal); I51.81 Takotsubo syndrome; Z98.890 Other specified postprocedural states; Z09 Encounter for follow-up examination after completed treatment for conditions other than malignant neoplasm; Z79.82 Long term (current) use of aspirin; F41.9 Anxiety disorder, unspecified | CPT/HCPCS: 99202 ==

== ENCOUNTER → 2025-04-16 12:58 | Outpatient (REF) | payer MEDICARE, OTHER, SELFPAY ==
--- NOTE | 2025-04-16 13:02 | HM_ITS ---
* Total monitoring time 5 days. * Underlying rhythm is sinus with an average rate of 68/Min. * Rare supraventricular ectopy. Very brief runs. * Rare ventricular ectopy with a burden of 0.6%. Rare couplets. * No significant pauses or high-grade AV blocks. * Shortness of breath and presyncope in patient diary associated with ventricular ectopy. MTDD
--- NOTE | 2025-04-16 13:02 | CA_ITS ---
Transthoracic Echocardiogram Patient (Last, First, Middle): Mellisa Blackmon, Gender: F Date of : 1960 Age: 64 Procedure Date: 04/16/2025 Procedure Type: Transthoracic Echocardiogram Location: OP Height: 165.1 cm Weight: 70.31 kg BSA: 1.78 m2 Heart Rate: bpm BP: 118 / 60 mmHg Safety Risk Lead: VH/RC Referring MD: Justyn Cavanaugh NP Symptoms: I51.81 - Takotsubo syndrome Study Quality: Adequate ECG Rhythm: Sinus Conclusions: - The left ventricular systolic function is normal. The calculated ejection fraction is 67% by biplane method. - No obvious valvular pathology seen on this study. Findings Left Ventricle Normal left ventricular cavity size. There is normal left ventricular wall thickness. The left ventricular systolic function is normal. The calculated ejection fraction is 67% by biplane method. There is no evidence of regional wall motion abnormalities. Diastolic function is normal for age. Right Ventricle Normal right ventricular cavity size and systolic function. Atria Both atria are normal in size. Aortic Valve There is a normal trileaflet aortic valve. There is no aortic valve stenosis. There is no aortic valve regurgitation. Mitral Valve The mitral valve appears normal. There is no mitral valve regurgitation. There is no mitral valve stenosis. Pulmonic Valve The pulmonic valve is likely normal. Tricuspid Valve There is mild to moderate tricuspid valve regurgitation. There is no evidence of pulmonary hypertension. Great Vessels The asc aorta is normal in size. Venous The inferior vena cava is normal in size and collapses greater than 50% with inspiration. Pericardium/Pleural There is no evidence of pericardial effusion. Prior Study Comparison No prior study available for comparison. Recommendations, Care & Conclusions No obvious valvular pathology seen on this study. Measurements 2D Linear Measurements IVSd: 0.93 0.6-0.9/0.6-1.0 cm LVIDd: 4.20 3.9-5.3/4.2-5.9 cm LVIDd Index: 2.36 2.4-3.2/2.2-3.1 cm/m2 LVIDs: 2.86 2.0-3.6 cm LVPWd: 0.99 0.7-1.1 cm Ao Root: 2.80 2.1-3.5 cm LA Diam: 3.30 2.7-3.8/3.0-4.0 cm LAIDs Index: 1.85 1.5-2.3 cm/m2 LV Mass: 160.64 67-162/88-224 g LV Mass Index: 90.25 43-95/49-115 g/m2 LVOT Diam: 1.90 3.0+(-)1.3 cm 2D Systolic Function EF 4C: 66.90 >55% EF 2C: 64.30 >55% EF BiP: 66.90 >55% Mitral Valve MV Pk E: 0.73 MV PK A: 0.74 MV Decel Time: 237.00 E/A: 1.00 E'Lateral: 8.38 E'Medial: 7.29 E/E' Med: 10.00 E/E' Lat: 8.70 PHT: 69.00 MVA PHT: 3.19 Decel [place]: 3.08 Aortic Valve AoV Pk Nick: 1.91 AoV Mn Nick: 1.30 AoV VTI: 0.43 AoV Pk Grad: 15.00 Aov Mn Grad: 8.00 [place] Cont.VTI: 1.66 LVOT LVOT Pk Nick: 1.31 LVOT Mn Nick: 0.75 LVOT VTI: 0.25 LVOT Pk Grad: 7.00 LVOT Mn Grad: 3.00 LVOT Diam: 1.90 LVOT Area: 2.84 Diastolic Function MV Pk E: 0.73 MV Pk A: 0.74 E/A: 1.00 E'Medial: 7.29 E/E' Med: 10.00 E' Laterial: 8.38 E/E' Lat: 8.70 Right Ventricle TAPSE (mm): 28.00 TVS' Nick: 11.00 Tricuspid Valve TR Pk Nick: 2.22 TR Pk Grad: 20.00 RA Press: 3.00 RVSP: 23.00 Great Vessels Aorta Ao Root-2D: 2.80 2.0-3.7 cm Ao Asc: 2.70 2.1-3.4 cm Pulmonary Veins Pulm Vein S/D 1.30 Pulmonary Valve PV Pk Nick: 0.91 Peak PV Grad: 3.00 Updated in Other Vendor System with Status of Final Sebastian Felipe MD electronically signed on 04/17/2025 10:34:53 AM with status of Final
--- OUTSIDE RECORDS SUMMARY | 2025-04-16 15:52 | XMS_ITS | Clinical Summary ---
Author Organization [facility] Address [address] [place] [address] Phone Care Team Providers Care Range Aid Name Role Phone Sachin Keller MD Primary Care Provider [phone] Allergies Active Allergy Reactions Criticality Noted Date [...] topic Medical Devices Not on file Insurance [facility] HMO Care Teams Range Aid Relationship Specialty Start Date End Date Sachin Keller MD [address] [place] [id number] PCP - General Internal Medicine 06/20/24 Additional Source Comments The information contained in this document represents components of the legal health record. It is not the complete legal health record.[facility]
--- OUTSIDE RECORDS SUMMARY | 2025-04-16 15:52 | XMS_ITS | Clinical Summary ---
Author Organization [place] [address] Care Team Providers Care Personnel Arbitrator Name Role Phone Unavailable Primary Care Provider Unavailabl e Social History Tobacco Use Types Packs/Day Years Used Date Smoking Tobacco: Never Assessed Comments Unknown Sex and Gender Information Value Date Recorded Sex Assigned at Not on file Legal Sex Female 10:15 AM EST Gender Identity Not on file Sexual Orientation Not on file Plan of Treatment Health Maintenance Due Date Last Done Comments CT Colonography 1960 Colonoscopy 1960 Colorectal Cancer Screening 1960 FIT DNA 1960 FIT 1960 Sigmoidoscopy (10 year) with FIT yearly 1960 Sigmoidoscopy 1960 HIV screen 1977 Hepatitis C Screening 1977 Tetanus/Diphtheria/Pertussis Vaccines (1 - Tdap) 06/11 HPV test 1989 PAP Smear 1989 Breast Cancer Share Decision Needed 1999 Breast Cancer screening 1999 Pneumoccocal Vaccine: 50+ (1 of 1 - PCV) 2009 Zoster vaccine (1 of 2) 2009 Advance Directive 2014 Bone Density Scan 2024 Covid-19 Vaccine (1 - season) 2025 Influenza (Flu) vaccine (1 o f 1 - Influenza standard series) 03/25/2025 Insurance [facility]
--- OUTSIDE RECORDS SUMMARY | 2025-04-16 15:52 | XMS_ITS | Clinical Summary ---
Author Organization [facility] Address [address] [place] [address] Phone Care Team Providers Care Communication Center Coordinator Name Role Phone Sachin Keller MD Primary Care Provider [phone] Allergies Active Allergy Reactions Criticality Noted Date [...] 03/12/2025 4:16 PM EDT 03/13/20 26 Active Active Problems Problem Noted Date Diagnosed Date Anxiety and depression 03/12/2025 Assessment & Plan (03/12/2025 12:14 AM EDT): - Can resume home dose desvenlafaxine Irregular heart rate 03/12/2025 Assessment & Plan (03/12/2025 12:14 AM EDT): - Currently on metoprolol succinate 12.5 mg daily. ACS (acute coronary syndrome) (CMS/[facility] V24, CMS/ [facility] V28) 03/11/2025 Assessment & Plan (03/12/2025 12:14 [...] EDT - 03/11/2025 10:30 PM EDT Surgery [facility] Cardiac Digital Marketing Assistant [address] [place] [address] Bela Barclay MD Left heart cath / Coronary angiography 03/11/2025 8:42 PM EDT - 03/12/2025 7:18 PM EDT Hospital Encounter [facility] CV Surg Card 8[address] [place] [phone] Cyrus Staples MD Hussain, Aliza, MD Ishtiaq, Rizwan, MD Udit, Chitreaka, MD Jacob, Dennis P, MD ACS (acute coronary syndrome) ([facility] V24, [facility] V28) (Primary Dx); CAD (coronary artery disease); ST elevation myocardial infarction (STEMI), unspecified artery ([facility] V24, [facility] V28); Coronary artery disease due to lipid rich plaque Discharge Disposition: Home or Self Care from Last 3 Months Surgical History Surgery Date Site/Laterality Comments OTHER SURGICAL HISTORY PROCEDURE: ---- OTHER ----; COMMENT: vaginal sling SD BREAST REDUCTION 07/25/2020 - 07/24/2021 Medical History [...] this topic Medical Devices Implanted Type Area Microfiche Duplicator Device Identifier Shelf Expiration Date Model / Serial / Lot System Perclose Prostyle Suture Medicated - [id number] Implanted:Qt y: 1 on 03/11/2025 by Bela Barclay MD at [facility] Vascular Closure Devices N/A: Groin [employer] [facility] [id number] 01/21/2027 [id number] / / [id number] Procedures Procedure Name Priority Date/Time Associated Diagnosis [...] ECG 12-LEAD STAT 03/11/2025 8:44 PM EDT SD CRITICAL CARE 30-74 MINUTES Routine 03/11/2025 8:40 [...] 77 mL CV PACS Left Atrium Minor Oakley 5.6 cm CV PACS Left Atrium Major [place] 5.4 cm CV PACS LA Area Sys [...] Aorta 2.8 cm CV PACS MV Deceleration [place] 2.8 m/s2 CV PACS E Wave Deceleration [...] Signed Date: 03/12/2025 10:26 ET Workstation ID: [id number] Transcribed By: Self Edit Transcribed Date: 03/12/2025 [...] Signed Date: 03/12/2025 10:26 ET Workstation ID: [id number] Transcribed By: Self Edit Transcribed Date: 03/12/2025 10:25 ET us Licha Rehman MD IMG XR PROCEDURES Final Result * (ABNORMAL) Troponin I high sensitivity (03/12/2025 7:55 AM EDT) Only the most recent of5 resultswithin the time period is included. High Sensitivity Troponin I 466(HH) 0 - 14 ng/L LAB CHEMISTRY METHOD 03/12/2025 9:37 AM EDT [facility] Comment:Verified by repeat a nalysis Blood Venous blood specimen / Unknown Venipuncture / Unknown 03/12/2025 7:55 AM EDT 03/12/2025 8:05 AM EDT Narrative [facility] - 03/12/2025 9:37 AM EDT HSTnI [...] method is an immunoenzymatic assay manufactured by [employer] and performed on the Quovo DxI 800. us Licha Rehman MD LAB BLOOD ORDERABLES Final Res ult [facility] [address] [place] [address], [place] [phone] * Lipid panel (03/12/2025 7:55 AM EDT) Cholesterol 173 0 - 200 mg/dL LAB CHEMISTRY METHOD 03/12/2025 1:25 PM EDT [facility] Triglycerides 56 <150 mg/dL LAB CHEMISTRY METHOD 03/12/2025 1:25 PM EDT [facility] HDL 73 35 - 96 mg/dL LAB CHEMISTRY METHOD 03/12/2025 1:25 PM EDT [facility] LDL Calculated 89 50 - 130 mg/dL LAB CHEMISTRY METHOD 03/12/2025 1:25 PM EDT [facility] VLDL Cholesterol Juan [place] 11.2 mg/dL LAB CHEMISTRY METHOD 03/12/2025 1:25 PM EDT [facility] Comment:No established refer ence range. Blood Venous blood specimen / Unknown Venipuncture / Unknown 03/12/2025 7:55 AM EDT 03/12/2025 8:05 AM EDT us Bela Barclay MD LAB BLOOD ORDERABLES Final Resu lt [facility] [address] [place] [address], * (ABNORMAL) CBC auto differential (03/12/2025 3:43 AM EDT) Only the most recent of2 resultswithin the time period is included. WBC 6.2 4.0 - 10.5 K/mcL LAB HEMETOLOGY METHOD 03/12/2025 4:00 AM EDT [facility] RBC 3.48(L) 4.20 - 5.40 M/mcL LAB HEMETOLOGY METHOD 03/12/2025 4:00 AM EDT [facility] Hemoglobin 11.7(L) 12.5 - 16.0 g/dL LAB HEMETOLOGY METHOD 03/12/2025 4:00 AM EDT [facility] Hematocrit 34.2(L) 37.0 - 47.0 % LAB HEMETOLOGY METHOD 03/12/2025 4:00 AM EDT [facility] MCV 98.1 78.0 - 100.0 FL LAB HEMETOLOGY METHOD 03/12/2025 4:00 AM EDT [facility] MCH 33.7(H) 25.0 - 33.0 pcg LAB HEMETOLOGY METHOD 03/12/2025 4:00 AM EDT [facility] MCHC 34.3 32.0 - 36.0 g/dL LAB HEMETOLOGY METHOD 03/12/2025 4:00 AM EDT [facility] RDW 13.0 12.1 - 16.2 % LAB HEMETOLOGY METHOD 03/12/2025 4:00 AM EDT [facility] Platelets 283 150 - 450 K/mcL LAB HEMETOLOGY METHOD 03/12/2025 4:00 AM EDT [facility] MPV 6.5(L) 7.4 - 11.4 FL LAB HEMETOLOGY METHOD 03/12/2025 4:00 AM EDT [facility] Neutrophils Relative 62.5 44.0 - 74.0 % LAB HEMETOLOGY METHOD 03/12/2025 4:00 AM EDT [facility] Lymphocytes Relative 24.8 20.0 - 48.0 % LAB HEMETOLOGY METHOD 03/12/2025 4:00 AM EDT [facility] Monocytes Relative 11.6 2.0 - 12.0 % LAB HEMETOLOGY METHOD 03/12/2025 4:00 AM EDT [facility] Eosinophils Relative 0.4 0.0 - 6.0 % LAB HEMETOLOGY METHOD 03/12/2025 4:00 AM EDT [facility] Basophils Relative 0.7 0.0 - 2.0 % LAB HEMETOLOGY METHOD 03/12/2025 4:00 AM EDT [facility] Neutrophils Absolute 3.90 1.80 - 7.80 K/mcL LAB HEMETOLOGY METHOD 03/12/2025 4:00 AM EDT [facility] Lymphocytes Absolute 1.50 1.00 - 3.20 K/mcL LAB HEMETOLOGY METHOD 03/12/2025 4:00 AM EDT [facility] Monocytes Absolute 0.70 0.00 - 0.80 K/mcL LAB HEMETOLOGY METHOD 03/12/2025 4:00 AM EDT [facility] Eosinophils Absolute 0.00 0.00 - 0.50 K/mcL LAB HEMETOLOGY METHOD 03/12/2025 4:00 AM EDT [facility] Basophils Absolute 0.00 0.00 - 0.20 K/mcL LAB HEMETOLOGY METHOD 03/12/2025 4:00 AM EDT [facility] Blood Venous blood specimen / Unknown Venipuncture / Unknown 03/12/2025 3:43 AM EDT 03/12/2025 3:50 AM EDT us Licha Rehman MD LAB BLOOD ORDERABLES Final Res ult [facility] [address] [place] [address], * Anti-Xa - Every 6 Hours (03/12/2025 3:43 AM EDT) Only the most recent of2 resultswithin the time period is included. Heparin Anti-Xa 0.50 I Unit/mL LAB COAGULATION METHOD 03/12/2025 4:14 AM EDT [facility] Blood Venous blood specimen / Unknown Venipuncture / Unknown 03/12/2025 3:43 AM EDT 03/12/2025 3:50 AM EDT Narrative [facility] - 03/12/2025 4:14 AM EDT Therapeutic Ranges Heparin Thromboembolic/Standard/Full Dose Protocol: Age 18+ Years 0.30-0.70 IU/mL Age 0-17 Years 0.35-0.70 IU/mL Heparin Cardiac/Low Dose Protocol: 0.30-0.5 IU/mL Low Molecular Weight Heparin: Age 18+ Years 0.50-1.50 IU/mL Age 0-17 Years 0.50-1.00 IU/mL Licha Rehman MD LAB BLOOD ORDERABLES Final Res ult Performing Organization Address City/[facility]/ZIP Co de Phone Number [facility] [address] [place] [address], [place] [phone] * D-Dimer (03/12/2025 3:43 AM EDT) [facility] D-Dimer, Quant (D-DU) <150 <231 ng/mL DDU LAB COAGULATION METHOD 03/12/2025 11:58 AM EDT [facility] Blood Venous blood specimen / Unknown Venipuncture / Unknown 03/12/2025 3:43 AM EDT 03/12/2025 3:50 AM EDT Narrative [facility] - 03/12/2025 11:58 AM EDT This [...] ORDERABLES Final Res ult Performing Organization Address [facility]/ZIP Co de Phone Number [facility] [address] [place] [address], [place] [phone] * Magnesium (03/12/2025 3:43 AM EDT) Only the most recent of2 resultswithin the time period is included. [facility] Magnesium 2.0 1.7 - 2.8 mg/dL LAB CHEMISTRY METHOD 03/12/2025 4:30 AM EDT [facility] Blood Venous blood specimen / Unknown Venipuncture / Unknown 03/12/2025 3:43 AM EDT 03/12/2025 3:50 AM EDT us Licha Rehman MD LAB BLOOD ORDERABLES Final Res ult [facility] [address] [place] [address], [place] [phone] * (ABNORMAL) Basic metabolic panel (03/12/2025 3:43 AM EDT) Sodium 138 135 - 145 mmol/L LAB CHEMISTRY METHOD 03/12/2025 4:30 AM EDT [facility] Potassium 3.9 3.5 - 5.1 mmol/L LAB CHEMISTRY METHOD 03/12/2025 4:30 AM EDT [facility] Chloride 105 98 - 107 mmol/L LAB CHEMISTRY METHOD 03/12/2025 4:30 AM EDT [facility] CO2 26 24 - 32 mmol/L LAB CHEMISTRY METHOD 03/12/2025 4:30 AM EDT [facility] Anion Gap 7 5 - 14 LAB CHEMISTRY METHOD 03/12/2025 4:30 AM EDT [facility] Glucose 120 70 - 199 mg/dL LAB CHEMISTRY METHOD 03/12/2025 4:30 AM EDT [facility] BUN 14 7 - 17 mg/dL LAB CHEMISTRY METHOD 03/12/2025 4:30 AM EDT [facility] Creatinine 0.50 0.50 - 1.00 mg/dL LAB CHEMISTRY METHOD 03/12/2025 4:30 AM EDT [facility] eGFR 104 >=60 mL/min/1. 73m2 LAB CHEMISTRY METHOD 03/12/2025 4:30 AM EDT [facility] Comment:Calculation based on the Chronic Kidney Disease Epidemiology Collaboration (CKD-EPI) equation refit without adjustment for race. BUN/Creatinine Ratio 28.0(H) 12.0 - 20.0 LAB CHEMISTRY METHOD 03/12/2025 4:30 AM EDT [facility] Calcium 8.4 8.4 - 10.2 mg/dL LAB CHEMISTRY METHOD 03/12/2025 4:30 AM EDT [facility] Blood Venous blood specimen / Unknown Venipuncture / Unknown 03/12/2025 3:43 AM EDT 03/12/2025 3:50 AM EDT us Licha Rehman MD LAB BLOOD ORDERABLES Final Res ult [facility] [address] [place] [address], [place] [phone] * LEFT HEART CATH / CORONARY ANGIOGRAPHY [...] guided vascular access Iliac arteriogram Access site: [facility] Procedure details: The risks, benefits, complications, treatment options, and expected outcomes were discussed with the patient and/or family prior to the procedure. The patient and/or family concurred with the proposed plan, giving informed consent. Patient was evaluated for moderate sedation and felt to be an appropriate candidate. She was brought to the shrimp pond laborer for cardiac catherization. She was prepped and draped in the usual manner. A time out was performed. The right common femoral artery was accessed under local anesthesia using a micropuncture technique. Ultrasound guidance was used to confirm appropriate access and needle entering the FINISHING MANAGER. A 6 [place] arterial sheath was inserted without difficulty. Diagnostic coronary angiography was performed using standard Jose catheters. A 6 [place] JL 4 catheter was used to engage the left main coronary artery. A 6 [place] JR 4 catheter was used to engage [...] ED Physician in the absence of a drop wire builder: yes Previous ECG: Previous ECG: Compared to [...] LAB COAGULATION METHOD 03/11/2025 9:31 PM EDT [facility] Blood Venous blood specimen / Unknown Venipuncture / Unknown 03/11/2025 9:01 PM EDT 03/11/2025 9:09 PM EDT us Cyrus Staples MD LAB BLOOD ORDERABLES Final Res ult [facility] [address] [place] [address], [place] [phone] * Prothrombin time with INR (03/11/2025 8:55 PM EDT) Protime 10.9 10.5 - 13.3 sec LAB COAGULATION METHOD 03/11/2025 9:28 PM EDT [facility] INR 1.0 0.8 - 1.1 LAB COAGULATION METHOD 03/11/2025 9:28 PM EDT [facility] Blood Venous blood specimen / Unknown Venipuncture / Unknown 03/11/2025 8:55 PM EDT 03/11/2025 9:01 PM EDT Narrative [facility] - 03/11/2025 9:28 PM EDT Std. Therapy 2.0-3.0 INR High Dose Therapy 3.0-4.5 INR Ranges may vary depending on clinical indications and protocol. us Cyrus Staples MD LAB BLOOD ORDERABLES Final Res ult [facility] [address] [place] [address], [place] [phone] * Type and screen (03/11/2025 8:55 PM EDT) Pathologist [facility] ABO Group O 03/11/2025 10:30 PM EDT [facility] Rh Type Positive 03/11/2025 10:30 PM EDT [facility] Antibody Screen Negative 03/11/2025 10:30 PM EDT [facility] Blood Venous blood specimen / Unknown Venipuncture / Unknown 03/11/2025 8:55 PM EDT 03/11/2025 9:01 PM EDT us Cyrus Staples MD LAB BLOOD BANK TEST ORDERABLES Final Result [facility] [address] [place] [address], [place] [phone] * (ABNORMAL) Comprehensive metabolic panel (03/11/2025 8:55 PM EDT) [facility] Sodium 136 135 - 145 mmol/L LAB CHEMISTRY METHOD 03/11/2025 9:58 PM EDT [facility] Potassium 3.8 3.5 - 5.1 mmol/L LAB CHEMISTRY METHOD 03/11/2025 9:58 PM EDT [facility] Comment:Slightly Hemolyzed Chloride 102 98 - 107 mmol/L LAB CHEMISTRY METHOD 03/11/2025 9:58 PM EDT [facility] CO2 26 24 - 32 mmol/L LAB CHEMISTRY METHOD 03/11/2025 9:58 PM EDT [facility] Anion Gap 8 5 - 14 LAB CHEMISTRY METHOD 03/11/2025 9:58 PM EDT [facility] Glucose 155 70 - 199 mg/dL LAB CHEMISTRY METHOD 03/11/2025 9:58 PM EDT [facility] BUN 16 7 - 17 mg/dL LAB CHEMISTRY METHOD 03/11/2025 9:58 PM EDT [facility] Creatinine 0.70 0.50 - 1.00 mg/dL LAB CHEMISTRY METHOD 03/11/2025 9:58 PM EDT [facility] eGFR 96 >=60 mL/min/1. 73m2 LAB CHEMISTRY METHOD 03/11/2025 9:58 PM EDT [facility] Comment:Calculation based on the Chronic Kidney Disease Epidemiology Collaboration (CKD-EPI) equation refit without adjustment for race. BUN/Creatinine Ratio 22.9(H) 12.0 - 20.0 LAB CHEMISTRY METHOD 03/11/2025 9:58 PM EDT [facility] Calcium 9.1 8.4 - 10.2 mg/dL LAB CHEMISTRY METHOD 03/11/2025 9:58 PM EDT [facility] AST (SGOT) 22 5 - 40 unit/L LAB CHEMISTRY METHOD 03/11/2025 9:[address] [facility] Comment:Slightly Hemolyzed ALT (SGPT) 11 7 - 52 unit/L LAB CHEMISTRY METHOD 03/11/2025 9:58 PM EDT [facility] Alkaline Phosphatase 86 34 - 104 unit/L LAB CHEMISTRY METHOD 03/11/2025 9:58 PM EDT [facility] Total Protein 7.2 6.4 - 8.5 g/dL LAB CHEMISTRY METHOD 03/11/2025 9:58 PM EDT [facility] Albumin 4.2 3.5 - 5.0 g/dL LAB CHEMISTRY METHOD 03/11/2025 9:58 PM EDT [facility] Total Bilirubin 0.3 0.3 - 1.0 mg/dL LAB CHEMISTRY METHOD 03/11/2025 9:58 PM EDT [facility] Blood Venous blood specimen / Unknown Venipuncture / Unknown 03/11/2025 8:55 PM EDT 03/11/2025 9:01 PM EDT us Cyrus Staples MD LAB BLOOD ORDERABLES Final Res ult [facility] [address] [place] [address], * ECG 12 lead (03/11/2025 8:54 PM EDT) Only the most recent of2 resultswithin the time period is included. Ventricular Rate ECG 78 BPM GEMUSE Atrial Rate 78 BPM GEMUSE P-R Interval 136 ms GEMUSE QRS Duration 94 ms GEMUSE Q-T Interval 426 ms GEMUSE QTc 485 ms GEMUSE P Wave [place] 72 degrees GEMUSE R [place] 54 degrees GEMUSE T [place] 51 degrees GEMUSE ECG Interpretation Normal sinus rhythm Prolonged QTc Abnormal ECG When compared with ECG of 11-MAR-2025 20:44, (Unconfirmed) No significant change was found Confirmed by Jenn Gallagher ([id number]) on 03/12/2025 9:17:14 AM GEMUSE 03/11/2025 8:54 PM EDT 03/12/2025 9:17 AM EDT Cyrus Staples MD ECG ORDERABLES Final Result GEMUSE * SD CRITICAL CARE 30-74 MINUTES (03/11/2025 8:40 PM [...] Anatomical Region Laterality Modality Endoscopy Historical Provider GI~PROCEDURE ORDERABLES F inal Result * External Colonoscopy Report (03/06/2025 9:58 AM EDT) Anatomical Region Laterality Modality Endoscopy Historical Provider GI~PROCEDURE ORDERABLES F inal Result * MG Mammo [...] Signed Date: 05/29/2024 15:36 ET Workstation ID: [id number] Transcribed By: Self Edit Transcribed Date: 05/29/2024 15:30 ET Narrative 05/29/2024 3:36 PM EST EXAM: SCREENING MAMMOGRAPHY, BILATERAL HISTORY: SCREENING. Bilateral reduction surgery 2020 COMPARISON: 05/09/2023, 05/05/2022, 02/16/2021, 02/14/2020 TECHNIQUE: Synthesized CC and MLO projections of each breast. Tomosynthesis of each breast in the CC and MLO projections. ADDITIONAL IMAGING: None Computer-aided detection was employed with the [employer] AI 3-D. TISSUE DENSITY: There are scattered [...] None Computer-aided detection was employed with the [employer] AI 3-D. TISSUE DENSITY: There are scattered [...] Signed Date: 05/29/2024 15:36 ET Workstation ID: [id number] Transcribed By: Self Edit Transcribed Date: 05/29/2024 [...] currently active code status orders. Care Teams Communication Center Coordinator Relationship Specialty Start Date End Date Sachin Keller MD PCP - General Internal Medicine 05/12/24
== END ==
LOC: HO.CARD 12:58
PROVIDERS: PCP Internal Medicine
DX: R00.2 Palpitations (principal); I51.81 Takotsubo syndrome
CPT/HCPCS: 93242; 93306

== ENCOUNTER → 2025-04-16 13:02 | Outpatient (BNV) | payer MEDICARE, OTHER, SELFPAY | PROVIDERS: PCP Internal Medicine; Visit Provider Internal Medicine | DX: I36.1 Nonrheumatic tricuspid (valve) insufficiency (principal); I51.81 Takotsubo syndrome | CPT/HCPCS: 93306 ==

== ENCOUNTER 2025-06-07 13:56 | Outpatient (AMB) | payer MEDICARE, OTHER, SELFPAY ==
--- OUTSIDE RECORDS SUMMARY | 2025-04-01 03:38 | XMS_ITS ---
Author Organization [facility] Address [address] [place], [place] [id number] Care Team Providers Care Survey Crew Chief Name Role Phone ELIANA ALVAREZ Primary Care Provider REASON FOR VISIT HFU Encounters Encounter Location Date Provider Diagnosis [address] [address] 04/01/2025 ELIANA ALVAREZ PLAN OF TREATMENT Next Appt Details Provider Name:ELIANA ALVAREZ , 08/07/2025 03:15:00 PM, [address] [place], [address],
--- OUTSIDE RECORDS SUMMARY | 2025-04-03 06:00 | XMS_ITS ---
Author Organization [facility] Address [address] [place], [place] [address] Care Team Providers Care Drying Tumbler Operator Name Role Phone ELIANA ALVAREZ Primary Care Provider [phone] ALLERGIES No Known Allergies REASON FOR VISIT HFU, defers flu vacc for today, will get at local pharm MEDICATIONS Medication SIG (Take, Route, Frequency, Duration) Notes Start Date End Date Status Sucralfate 1 GM 1 tablet on an empty stomach Orally Four times a day for 30 days Active Aspirin 81 MG 1 tablet Orally Once a day Active EXEL SYRINGE 3 mL 25 gauge x 1 USE WITH VITAMIN B12 INJECTIONS MISCELLANEOUS every 30 days for 90 days 11/22/2022 Active Cyanocobalamin 1000 MCG/ML INJECT 0.1 ML IN THE MUSCLE EVERY MONTH Injection 11/29/2022 Active Atorvastatin Calcium 40 MG 1 tablet Oral ly Once a day for 90 days Active Isosorbide Mononitrate ER 30 MG 1 tablet in the morning Orally Once a day for 90 days Active PARoxetine HCl 20 MG 1 tablet in the mor dio Orally Once a day for 30 day(s) 04/03/2025 Active traZODone HCl 50 MG TAKE 1 OR 2 TABLETS BY MOUTH EVERY DAY for 90 Active amLODIPine Besylate 5 MG 1 tablet Orally Once a day for 90 days Active Nystatin 740157 UNIT/GM 1 application Ex ternally Twice a day for 30 day(s) 11/23/2024 Active Pantoprazole Sodium 40 MG 1 tablet Orall y Once a day for 90 day(s) 03/16/2024 Active BD Luer-Zara Syringe 25G X 1 3 ML USE ONCE MONTHLY WITH B-12 for 28 Active LORazepam 0.5 MG 1 tablet at bedtime as needed Orally Once a day 11/23/2024 Active Betamethasone Dipropionate 0.05 % 1 application Externally twice a day for 14 days 11/23/2024 Active SOCIAL HISTORY Tobacco Use: Social History Observation Description Date Details (start date - stop date) Never Smoker NA - NA Sex Assigned At : Social History Observation Description Sex Assigned At Unknown Smoking Question Answer Notes Are you a: never smoker PROBLEMS Problem Type ICD Code Onset Dates Problem Status W/U Status Risk SNOMED Code Notes Problem Coronary vasospasm (I20.1) Active confirmed 60827917 Problem Takotsubo cardiomyopathy (I51.81) Active confirmed 847068085 VITAL SIGNS Height 63.5 in 04/03/2025 Weight 153.6 lbs 04/03/2025 Blood pressure systolic 126 mm Hg 04/03/20 25 Blood pressure diastolic 70 mm Hg 025 BMI 26.78 kg/m2 04/03/2025 Encounters Encounter Location Date Provider Diagnosis [facility] [address] [place] [address] 04/03/2025 [place] Coronary vasospasm I20.1 ; Takotsubo cardiomyopathy I51.81 and Generalized anxiety disorder F41.1 ASSESSMENTS Encounter Date Diagnosis Assessment Notes Treatment Notes Treatment Clinical Notes Section Notes 04/03/2025 Coronary vasospasm (ICD-10 - I20.1) Hospital records reviewed at length 1. Coronary vasospasm with mild underlying coronary disease. Will observe on amlodipine and to Sorbide. Aspirin and atorvastatin were also continued for now. 2. Takotsubo cardiomyopathy: Repeat echo is planned through cardiology. She had mild wall motion abnormalities in the apical region with an EF of 50 to 60% on echo at [place]. 3. Generalized anxiety disorder: I will taper Pristiq and try Paxil starting at 20 mg/day. Will plan to reassess in 3 to 4 weeks and she will call sooner if needed 04/03/2025 Takotsubo cardiomyopathy (ICD-10 - I51.81) Hospital records reviewed at length 1. Coronary vasospasm with mild underlying coronary disease. Will observe on amlodipine and to Sorbide. Aspirin and atorvastatin were also continued for now. 2. Takotsubo cardiomyopathy: Repeat echo is planned through cardiology. She had mild wall motion abnormalities in the apical region with an EF of 50 to 60% on echo at [place]. 3. Generalized anxiety disorder: I will taper Pristiq and try Paxil starting at 20 mg/day. Will plan to reassess in 3 to 4 weeks and she will call sooner if needed 04/03/2025 Generalized anxiety disorder (ICD-10 - F41.1) Hospital records reviewed at length 1. Coronary vasospasm with mild underlying coronary disease. Will observe on amlodipine and to Sorbide. Aspirin and atorvastatin were also continued for now. 2. Takotsubo cardiomyopathy: Repeat echo is planned through cardiology. She had mild wall motion abnormalities in the apical region with an EF of 50 to 60% on echo at [place]. 3. Generalized anxiety disorder: I will taper Pristiq and try Paxil starting at 20 mg/day. Will plan to reassess in 3 to 4 weeks and she will call sooner if needed PLAN OF TREATMENT Medication Medication Name Sig Start Date Stop Date Notes Desvenlafaxine Succinate ER 50 MG 1 tabl et Orally Once a day 01/28/2025 Atorvastatin Calcium 40 MG 1 tablet Oral ly Once a day for 90 days Isosorbide Mononitrate ER 30 MG 1 tablet in the morning Orally Once a day for 90 days PARoxetine HCl 20 MG 1 tablet in the mor dio Orally Once a day for 30 day(s) 04/03/2025 amLODIPine Besylate 5 MG 1 tablet Orally Once a day for 90 days Next Appt Details Provider Name:ELIANA ALVAREZ , 08/07/2025 03:15:00 PM, [address] [place] [address], [phone], Progress Notes * Examination Category Sub-Category Detail Notes Category Not es General Examination Heart: RSR, normal S1S2 Lungs: clear to auscultatio n Extremities: no edema General Appearance no apparent distress , pleasant Psych: alert, oriented X 3 Other normal affect History and Physical Notes * HPI (History of Present Illness) Category Sub-Category Detail Notes Category Not es General Patient was hos pitalized at [place] March 11 to the with chest pain. Patient had ST elevations on her initial EKG and was taken for urgent cath. Catheterization showed a mild 30 to 40% LAD stenosis but no other obstructive coronary disease. She had mild wall motion abnormalities in the apical wall. She was felt to have coronary vasospasm and possibly talk Takotsubo cardiomyopathy. Patient was taken off metoprolol in favor of vasodilators. She was started on isosorbide and amlodipine. She was also placed on aspirin and atorvastatin. Instructed to follow-up with cardiology in [place] and had 1 appointment there but they had medical records so nothing was adjusted at that time. She has not had chest pain since leaving the hospital. She does not feel her anxiety medicine is working for her wishes to try something different. It is already tapered to 50 mg of the Pristiq.
--- OUTSIDE RECORDS SUMMARY | 2025-04-03 06:27 | XMS_ITS ---
Author Organization [facility] Address [address] [place], [place] [id number] Care Team Providers Care Fingernail Former Name Role Phone ELIANA ALVAREZ Primary Care Provider REASON FOR VISIT (AF-04/03/25) Cardiology Encounters Encounter Location Date Provider Diagnosis [address] [address] 04/03/2025 ELIANA ALVAREZ PLAN OF TREATMENT Next Appt Details Provider Name:ELIANA ALVAREZ , 08/07/2025 03:15:00 PM, [address] [place], [phone],
--- OUTSIDE RECORDS SUMMARY | 2025-04-03 06:42 | XMS_ITS ---
Author Organization [facility] Address [address] [place], [place] [id number] Care Team Providers Care Take Out Waiter Name Role Phone ELIANA ALVAREZ Primary Care Provider [phone] MEDICATIONS Medication SIG (Take, Route, Frequency, Duration) Notes Start Date End Date Status Atorvastatin Calcium 40 MG 1 tablet Oral ly Once a day for 90 days Active Isosorbide Mononitrate ER 30 MG 1 tablet in the morning Orally Once a day for 90 days Active amLODIPine Besylate 5 MG 1 tablet Orally Once a day for 90 days Active Encounters Encounter Location Date Provider Diagnosis [address] [address] 04/03/2025 ELIANA ALVAREZ PLAN OF TREATMENT Medication Medication Name Sig Start Date Stop Date Notes Atorvastatin Calcium 40 MG 1 tablet Oral ly Once a day for 90 days Isosorbide Mononitrate ER 30 MG 1 tablet in the morning Orally Once a day for 90 days amLODIPine Besylate 5 MG 1 tablet Orally Once a day for 90 days Next Appt Details Provider Name:ELIANA ALVAREZ , 08/07/2025 03:15:00 PM, [address] [place], [address],
--- OUTSIDE RECORDS SUMMARY | 2025-05-03 10:42 | XMS_ITS ---
Author Organization [facility] Address [address] [place], [place] [id number] Care Team Providers Care Internal Audit Director Name Role Phone ELIANA ALVAREZ Primary Care Provider [phone] REASON FOR VISIT canx f/u Encounters Encounter Location Date Provider Diagnosis [address] [address] 05/03/2025 ELIANA ALVAREZ PLAN OF TREATMENT Next Appt Details Provider Name:ELIANA ALVAREZ , 08/07/2025 03:15:00 PM, [address] [place], [phone],
--- OUTSIDE RECORDS SUMMARY | 2025-05-07 06:45 | XMS_ITS ---
Author Organization [facility] Address [address] [place], [place] [id number] Care Team Providers Care Activity Assistant Name Role Phone ELIANA ALVAREZ Primary Care Provider REASON FOR VISIT 41 1 mo f/u Encounters Encounter Location Date Provider Diagnosis [address] [address] 05/07/2025 ELIANA ALVAREZ PLAN OF TREATMENT Next Appt Details Provider Name:ELIANA ALVAREZ , 08/07/2025 03:15:00 PM, [address] [place], [address],
--- OUTSIDE RECORDS SUMMARY | 2025-05-20 10:03 | XMS_ITS ---
Author Organization [facility] Address [address] [place], [place] [id number] Care Team Providers Care Statistics Tutor Name Role Phone ELIANA ALVAREZ Primary Care Provider [phone] REASON FOR VISIT needs to kervin AWV Encounters Encounter Location Date Provider Diagnosis [address] [address] 05/20/2025 ELIANA ALVAREZ PLAN OF TREATMENT Next Appt Details Provider Name:ELIANA ALVAREZ , 08/07/2025 03:15:00 PM, [address] [place], [phone],
--- OUTSIDE RECORDS SUMMARY | 2025-05-28 10:00 | XMS_ITS ---
Author Organization [facility] Address [address] [place], [place] [id number] Care Team Providers Care Cut In Station Operator Name Role Phone ELIANA ALVAREZ Primary Care Provider [phone] [place], [place]ELANIE [facility] [phone] REASON FOR VISIT N/ WELCOME TO MEDICARE Encounters Encounter Location Date Provider Diagnosis [address] [address] 05/28/2025 [facility] [place] PLAN OF TREATMENT Next Appt Details Provider Name:ELIANA ALVAREZ , 08/07/2025 03:15:00 PM, [address] [place] [address], [phone],
--- OUTSIDE RECORDS SUMMARY | 2025-05-28 10:30 | XMS_ITS ---
Author Organization [facility] Address [address] [place], [place] [id number] Care Team Providers Care Litigation Assistant Name Role Phone ELIANA ALVAREZ Primary Care Provider REASON FOR VISIT 41/ WELCOME TO MEDICARE Encounters Encounter Location Date Provider Diagnosis [address] [address] 05/28/2025 ELIANA ALVAREZ PLAN OF TREATMENT Next Appt Details Provider Name:ELIANA ALVAREZ , 08/07/2025 03:15:00 PM, [address] [place], [address],
--- OUTSIDE RECORDS SUMMARY | 2025-05-28 11:00 | XMS_ITS ---
Author Organization [facility] Address [address] [place], [place] [id number] Care Team Providers Care Hand Cigar Making Supervisor Name Role Phone ELIANA ALVAREZ Primary Care Provider REASON FOR VISIT awv Encounters Encounter Location Date Provider Diagnosis [address] [address] 05/28/2025 ELIANA ALVAREZ PLAN OF TREATMENT Next Appt Details Provider Name:ELIANA ALVAREZ , 08/07/2025 03:15:00 PM, [address] [place], [phone],
--- NOTE | 2025-06-07 13:58 | A.OFFVIS_ITS ---
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 Moving forward, patient will be under Dr. Avitia's care as he was the [facility] healthist when patient was seen first. [place] had a very stressful day and had palpitations, lightheadedness, and diaphoresis. At that time, patient was brought to [facility] in [place], ruled in for ACS and underwent emergent cardiac catheterization that showed mild to moderate coronary disease in the LAD. Patient then underwent an echocardiogram that showed mildly decreased LV systolic function with regional wall motion abnormalities consistent with takotsubo cardiomyopathy. Today, patient is feeling well overall without any cardiac symptoms of exertional chest pain, shortness of breath, palpitations, dizziness, orthopnea, PND, leg edema, presyncope or syncope. Given reports of palpitations at the last visit, we got a Holter study and an echo. Patient is reporting compliance with all her medications. [facility] Surgical History History of cardiac cath Family History Mother No problems noted. Father S/P triple vessel bypass Brother Stented coronary artery Sister No problems noted. Social History Alcohol intake: current Alcohol intake frequency: holidays/special occasions only Patient Tobacco Use Status: Never used Tobacco Review of Systems Const Denies daytime sleepiness, Denies difficulty sleeping, Denies snoring, Denies stops breathing during sleep and Denies weakness Card Denies chest pain, Denies rapid heart rate, Denies irregular heart rhythm, Denies claudication, Denies leg edema, Denies lightheadedness, Denies palpitations, Denies dyspnea, Denies dyspnea on exertion, Denies orthopnea, Denies paroxysmal nocturnal dyspnea and Denies slow heart rate Resp Denies cough, Denies dyspnea, Denies dyspnea on exertion and Denies snoring GI Reports no additional complaints, Denies hematochezia, Denies change in stool character and Denies dyspepsia Musc Denies abnormal gait, Denies muscle weakness and Denies numbness Neuro Denies abnormal gait, Denies numbness and Denies weakness Endo Denies palpitations Physical Exam Vital Signs: Last Vital Signs Pulse 73 06/07/25 13:59 BP 120/64 06/07/25 13:59 BMI result Body Mass Index 26.2 Const General: cooperative, healthy appearing, comfortable and no acute distress Orientation/consciousness: patient oriented x3 HEENT Head: Yes normal to inspection Neck Neck: Yes normal visual inspection, Yes trachea midline and Yes supple Chest Chest palpation & inspection: normal inspection of the chest Resp Effort & Inspection: normal respiratory effort Auscultation: clear to auscultation bilaterally, no crackles, no rales, no rhonchi and no wheezes Cardio Jugular venous distension: no JVD Palpation: normal PMI Rate: regular rate Rhythm: regular rhythm Heart sounds: S1 normal heart sound present, S2 normal heart sound present, no click, no gallops, no murmurs and no rubs Peripheral pulses: Peripheral pulses 2+ throughout GI Inspection: Yes normal to inspection Palpation (GI): Soft to palpation Auscultation: normal bowel sounds Skin General skin exam: no rashes or lesions noted Neuro General: patient oriented x3 Extrem General: Yes normal to inspection, No no pedal edema and No calf tenderness Psych Appearance: grossly normal Mental Status: mental status grossly normal Speech and movement: Normal speech and movement present Assessment & Plan Assessment & Plan (1) Takotsubo cardiomyopathy: Code(s): I51.81 - Takotsubo syndrome Category: Medical Plan: At [facility], on 03/11/2025 patient underwent an echo study that showed a low-normal LV systolic function with the ejection fraction at 52%, with regional wall LV wall motion abnormalities, apical wall motion abnormality suggestive of takotsubo cardiomyopathy versus LAD infarct. Patient also underwent a cardiac catheterization on 03/11/2025 that showed nonobstructive disease in the proximal LAD with 30-40% stenosis. Patient at that time was on amlodipine and isosorbide however patient was feeling tired on isosorbide and therefore we discontinued this. 04/16/2025-Holter study showed an underlying normal sinus rhythm with rare PACs with very brief runs and rare PVCs with a burden of 0.6% with rare couplets. Patient marked her symptoms with ventricular ectopy. 04/16/2025-echo study showed improved LV systolic function with the ejection fraction at 67% with no wall motion abnormalities. Given resolution of her symptoms and feeling well overall, no changes in current regimen. Patient with significant history of anxiety and therefore was previously discussed about stress mitigation strategies. Patient states that she is now on new medications for anxiety and depression with her PCP. Patient states she is feeling well on those medications. (2) S/P cardiac catheterization: Code(s): Z98.890 - Other specified postprocedural states Category: Medical Plan: As above. (3) Atherosclerotic cardiovascular disease: Code(s): I25.10 - Atherosclerotic heart disease of [place] coronary artery without angina pectoris Category: Medical Plan: As above. No recent lipid profile. We will repeat this with the LDL goal less than 70. Continue statin therapy. Advised heart healthy diet, regular exercise, med compliance, stress mitigation strategies, avoiding caffeinated beverages, and management of vascular risk factors. Follow up in 1 year, sooner if needed. In the interim, patient will call the office with any concerns or change in symptoms. This note was generated using voice recognition software. While every effort has been made to ensure accuracy and proper asphalt roller person, there may be occasional errors that could affect the content or meaning of the described symptoms. Orders: Orders Lipid Panel Today I51.81 - Takotsubo syndrome Coding Level of Care Code Est Pt Level 4 (67169) Complex EM visit Add On G2211 Diagnoses Takotsubo cardiomyopathy I51.81 S/P cardiac catheterization Z98.890 Atherosclerotic cardiovascular disease I25.10 Time Spent (min) 34 Comment Time spent in reviewing the chart, test results, assessment, counseling and documentation.
[2025-06-07 13:59] VITALS: BP 120/64; PULSE 73; BMI 26.2
--- OUTSIDE RECORDS SUMMARY | 2025-06-07 20:34 | XMS_ITS | Clinical Summary ---
Author Organization [facility] Address [address] [place] [address] Phone Care Team Providers Care Director Of Enterprise Architecture Name Role Phone Sachin Keller MD Primary Care Provider [phone] Allergies Active Allergy Reactions Criticality Noted Date Comments Adhesive 06/07/2022 Morphine 10/16/2024 Medications CYANOCOBALAMIN, VITAMIN B-12, (VITAMIN B-12 INJ) Inject into the muscle every 30 (thirty) days. Active traMADoL (ULTRAM) 50 mg tabletIndication s:Left wrist pain,Other closed intra-articular fracture of distal end of left radius, initial encounter Take 1-2 tablets by mouth every 4-6 hours as needed for pain, maximum 400 mg/day. Patient may request partial refill. 30 tablet 2 Active Additional Information Patient not taking.Reported on 05/22/2025 sucralfate (CARAFATE) 1 gram tablet TAKE 1 [...] pantoprazole (PROTONIX) 40 MG tablet 4 Active amLODIPine (NORVASC) 5 MG tablet Take 5 mg by mouth daily. Active aspirin 81 mg chewable tablet 81 mg daily. A ctive atorvastatin (LIPITOR) 40 MG tablet Take 40 mg by mouth daily. Active isosorbide mononitrate (IMDUR) 30 MG 24 hr tablet Take 30 mg by mouth daily. 5 03/13/20 26 Active LORazepam (ATIVAN) 0.5 MG tablet Take 0.5 mg by mouth every 6 (six) hours as needed. Active PARoxetine (PAXIL) 20 MG tablet take 1 tablet by mouth every day in the morning for 30 days 5 Active metoprolol succinate (TOPROL-XL) 25 MG 24 hr tablet 5 Active Active Problems Problem Noted Date Diagnosed Date Anxiety and depression 03/12/2025 Encounters Date Type Department Care Team Description 05/22/2025 5:50 PM EDT Office Visit [facility] [address] [address] Sachin Keller MD Skawski, Hortensia Herron, DIANELYS Sore throat (Primary Dx) from Last 3 Months Immunizations Immunization Administration Dates Next Due Influenza [...] Sign Reading Time Taken Comments Blood Pressure 129/78 05/22/2025 5:55 PM EDT Pulse 73 05/22/2025 5:55 PM EDT Temperature 36.8 C (98.2 F) 05/22/2025 5:55 PM EDT Respiratory Rate 16 05/22/2025 5:55 PM EDT Oxygen Saturation 98% 05/22/2025 5:55 PM EDT Inhaled Oxygen Concentration - - Weight 74.8 kg (165 lb) 06/12/2022 3:20 PM EST Height 162.6 cm (5' 4 ) 06/12/2022 3:20 PM EST Body Mass Index 28.32 06/12/2022 3:20 PM EST Plan of Treatment Health Maintenance Due Date Last Done Comments DEPRESSION SCREENING 1971 HEPATITIS C SCREENING 1977 [...] VACCINE (#1) 2025 06/10/2021 COVID-19 VACCINE ( season) 2025 12/08/2021, 06/10/2021, 10/01/2020, Additional history exists MAMMOGRAM 05/29/2026 05/29/2024, 05/29/2024 Adult Td,Tdap Booster 06/24/2028 06/24/2018 LIPID PANEL 03/12/2030 03/12/2025 RSV VACCINE (1 - 1-dose 75+ series) 2034 SMOKING STATUS SCREENING (Once After 26 Yrs) Completed 05/22/2025 HEPATITIS A VACCINES Aged Out No long er eligible based on patient's age to complete this topic HIB VACCINES Aged Out No longer eligi ble based on patient's age to complete this topic IPV VACCINES Aged Out No longer eligi ble based on patient's age to complete this topic MENINGOCOCCAL VACCINES (ACWY) Aged Out No longer eligible based on patient's age to complete this topic MENINGOCOCCAL VACCINES (B) Aged Out N o longer eligible based on patient's age to complete this topic Medical Devices Not on file Procedures Procedure Name Priority Date/Time Associated Diagnosis Comments POCT RAPID STREP A Routine 05/22/2025 6: 01 PM EDT POCT COVID-19 RT-PCR/INFLUENZA A & B/RSV CEPHEID Routine 05/22/2025 6:00 PM EDT from Last 3 Months Results * POCT Rapid Strep A (05/22/2025 6:01 PM EDT) [facility] Strep A, PCR Not Detected Not Detected [facility] 05/22/2025 6:01 PM EDT 05/22/2025 6:30 PM EDT us Sachin Keller MD LAB POCT ENTER/EDIT ORDER WALTER Final Result [facility] [address] [address], [facility] [phone] * POCT COVID-19 RT-PCR/Influenza A & B/RSV (Cepheid) (05/22/2025 6:00 PM EDT) [facility] RSV PCR Negative Negative [facility] SARS-CoV-2 (COVID-19) Negative Negative [facility] POC Influenza A PCR Negative Negative [facility] Influenza B PCR Negative Negative [facility] 05/22/2025 6:00 PM EDT 05/22/2025 6:41 PM EDT us Sachin Keller MD LAB POCT ENTER/EDIT ORDER WALTER Final Result [facility] [address] [address], [facility] [phone] from Last 3 Months Insurance MEDICARE PART A & [place] [address] [place] [address] MEDICARE SUPPLEMENT MEDICARE PART A & B MEDICARE PART A & B MEDICARE PART A & B MEDICARE SUPPLEMENT MEDICARE PART A & B [facility] MEDICARE SUPPLEMENT MEDICARE PART A & [place] [id number] 6 [facility] [place] Care Teams Director Of Enterprise Architecture Relationship Specialty Start Date End Date Sachin Keller MD [address] [place] [id number] PCP - General Internal Medicine 06/20/24 Additional Source Comments The information contained in this document represents components of the legal health record. It is not the complete legal health record.[facility]
--- OUTSIDE RECORDS SUMMARY | 2025-06-07 20:34 | XMS_ITS | Clinical Summary ---
Author Organization [facility] Address [address] [place] [address] Phone Care Team Providers Care Phone Screener Name Role Phone Sachin Keller MD Primary Care Provider [phone] Allergies Active Allergy Reactions Criticality Noted Date [...] 12.5 mg daily. ACS (acute coronary syndrome) (CMS/HCC V24, CMS/ HCC V28) 03/11/2025 Assessment & Plan (03/12/2025 12:14 [...] EDT - 03/11/2025 10:30 PM EDT Surgery [facility] Cardiac Bellows Assembler [address] [place] [address] Bela Barclay MD Left heart cath / Coronary angiography 03/11/2025 8:42 PM EDT - 03/12/2025 7:18 PM EDT Hospital Encounter [facility] CV Surg Card 8-9 [address] [place] [address] Cyrus Staples MD Hussain, Aliza, MD Ishtiaq, Rizwan, MD Udit, Chitreaka, MD Jacob, Dennis P, MD ACS (acute coronary syndrome) ([facility] V24, [facility] V28) (Primary Dx); CAD (coronary artery disease); ST elevation myocardial infarction (STEMI), unspecified artery ([facility] V24, [facility] V28); Coronary artery disease due to lipid rich plaque Discharge Disposition: Home or Self Care from Last 3 Months Surgical History Surgery Date Site/Laterality Comments OTHER SURGICAL HISTORY PROCEDURE: ---- OTHER ----; COMMENT: vaginal sling PA BREAST REDUCTION 07/25/2020 - 07/24/2021 Medical History [...] this topic Medical Devices Implanted Type Area Plant Tender Device Identifier Shelf Expiration Date Model / Serial / Lot System Perclose Prostyle Suture Medicated - [id number] Implanted:Qt y: 1 on 03/11/2025 by Bela Barclay MD at [facility] Vascular Closure Devices N/A: [employer] [facility] [employer] [id number] 01/21/2027 31420-03 / / [id number] Procedures Procedure Name Priority Date/Time Associated Diagnosis [...] ECG 12-LEAD STAT 03/11/2025 8:44 PM EDT PA CRITICAL CARE 30-74 MINUTES Routine 03/11/2025 8:40 PM EDT EXTERNAL COLONOSCOPY REPORT Routine 03/06/2025 9:58 [...] 77 mL CV PACS Left Atrium Minor [place] 5.6 cm CV PACS Left Atrium Major [place] 5.4 cm CV PACS LA Area Sys [...] Aorta 2.8 cm CV PACS MV Deceleration [place] 2.8 m/s2 CV PACS E Wave Deceleration [...] Signed Date: 03/12/2025 10:26 ET Workstation ID: [id number] Transcribed By: Self Edit Transcribed Date: 03/12/2025 [...] Signed Date: 03/12/2025 10:26 ET Workstation ID: [id number] Transcribed By: Self Edit Transcribed Date: 03/12/2025 10:25 ET Licha Rehman MD IMG XR PROCEDURES Final Result * (ABNORMAL) Troponin I high sensitivity (03/12/2025 7:55 AM EDT) Only the most recent of5 resultswithin the time period is included. [facility] High Sensitivity Troponin I 466(HH) 0 - 14 ng/L LAB CHEMISTRY METHOD 03/12/2025 9:37 AM EDT [facility] Comment:Verified by repeat a nalysis Blood Venous blood specimen / Unknown Venipuncture / Unknown 03/12/2025 7:55 AM EDT 03/12/2025 8:05 AM EDT Narrative [facility] - 03/12/2025 9:37 AM EDT [...] method is an immunoenzymatic assay manufactured by [employer] and performed on the [employer] DxI 800. Licha Rehman MD LAB BLOOD ORDERABLES Final Res ult [facility] [address] [place] [address], [place] [phone] * Lipid panel (03/12/2025 7:55 AM EDT) Cholesterol 173 0 - 200 mg/dL LAB CHEMISTRY METHOD 03/12/2025 1:25 PM EDT [facility] Triglycerides 56 <150 mg/dL LAB CHEMISTRY METHOD 03/12/2025 1:25 PM EDT [facility] HDL 73 35 - 96 mg/dL LAB CHEMISTRY METHOD 03/12/2025 1:25 PM EDT [facility] LDL Calculated 89 50 - 130 mg/dL LAB CHEMISTRY METHOD 03/12/2025 1:25 PM EDT [facility] VLDL Cholesterol Juan Carlos 11.2 mg/dL LAB CHEMISTRY METHOD 03/12/2025 1:25 PM EDT [facility] Comment:No established refer ence range. Blood Venous blood specimen / Unknown Venipuncture / Unknown 03/12/2025 7:55 AM EDT 03/12/2025 8:05 AM EDT Bela Barclay MD LAB BLOOD ORDERABLES Final Resu lt [facility] [address] [place] [address], * (ABNORMAL) CBC auto differential (03/12/2025 3:43 AM EDT) Only the most recent of2 resultswithin the time period is included. Pathologist [facility] WBC 6.2 4.0 - 10.5 K/mcL LAB HEMETOLOGY METHOD 03/12/2025 4:00 AM EDT [facility] RBC 3.48(L) 4.20 - 5.40 M/mcL LAB HEMETOLOGY METHOD 03/12/2025 4:00 AM EDT [facility] Hemoglobin 11.7(L) 12.5 - 16.0 g/dL LAB HEMETOLOGY METHOD 03/12/2025 4:00 AM EDT [facility] Hematocrit 34.2(L) 37.0 - 47.0 % LAB HEMETOLOGY METHOD 03/12/2025 4:00 AM EDT [facility] MCV 98.1 78.0 - 100.0 FL LAB HEMETOLOGY METHOD 03/12/2025 4:00 AM EDT [facility] MCH 33.7(H) 25.0 - 33.0 pcg LAB HEMETOLOGY METHOD 03/12/2025 4:00 AM EDT [facility] MCHC 34.3 32.0 - 36.0 g/dL LAB HEMETOLOGY METHOD 03/12/2025 4:00 AM EDT [facility] RDW 13.0 12.1 - 16.2 % LAB HEMETOLOGY METHOD 03/12/2025 4:00 AM EDT [facility] Platelets 283 150 - 450 K/mcL LAB HEMETOLOGY METHOD 03/12/2025 4:00 AM EDT [facility] MPV 6.5(L) 7.4 - 11.4 FL LAB HEMETOLOGY METHOD 03/12/2025 4:00 AM EDT [facility] Neutrophils Relative 62.5 44.0 - 74.0 % LAB HEMETOLOGY METHOD 03/12/2025 4:00 AM EDT [facility] Lymphocytes Relative 24.8 20.0 - 48.0 % LAB HEMETOLOGY METHOD 03/12/2025 4:00 AM EDT [facility] Monocytes Relative 11.6 2.0 - 12.0 % LAB HEMETOLOGY METHOD 03/12/2025 4:00 AM EDT [facility] Eosinophils Relative 0.4 0.0 - 6.0 % LAB HEMETOLOGY METHOD 03/12/2025 4:00 AM EDT [facility] Basophils Relative 0.7 0.0 - 2.0 % LAB HEMETOLOGY METHOD 03/12/2025 4:00 AM EDT [facility] Neutrophils Absolute 3.90 1.80 - 7.80 K/mcL LAB HEMETOLOGY METHOD 03/12/2025 4:00 AM EDT [facility] Lymphocytes Absolute 1.50 1.00 - 3.20 K/mcL LAB HEMETOLOGY METHOD 03/12/2025 4:00 AM EDT [facility] Monocytes Absolute 0.70 0.00 - 0.80 K/mcL LAB HEMETOLOGY METHOD 03/12/2025 4:00 AM EDT [facility] Eosinophils Absolute 0.00 0.00 - 0.50 K/mcL LAB HEMETOLOGY METHOD 03/12/2025 4:00 AM EDT [facility] Basophils Absolute 0.00 0.00 - 0.20 K/mcL LAB HEMETOLOGY METHOD 03/12/2025 4:00 AM EDT [facility] Blood Venous blood specimen / Unknown Venipuncture / Unknown 03/12/2025 3:43 AM EDT 03/12/2025 3:50 AM EDT us Licha Rehman MD LAB BLOOD ORDERABLES Final Res ult [facility] [address] [place] [address], [place] [phone] * Anti-Xa - Every 6 Hours (03/12/2025 3:43 AM EDT) Only the most recent of2 resultswithin the time period is included. Heparin Anti-Xa 0.50 I Unit/mL LAB COAGULATION METHOD 03/12/2025 4:14 AM EDT [facility] Blood Venous blood specimen / Unknown Venipuncture / Unknown 03/12/2025 3:43 AM EDT 03/12/2025 3:50 AM EDT Narrative [facility] - 03/12/2025 4:14 AM EDT Therapeutic Ranges Heparin Thromboembolic/Standard/Full Dose Protocol: Age 18+ Years 0.30-0.70 IU/mL Age 0-17 Years 0.35-0.70 IU/mL Heparin Cardiac/Low Dose Protocol: 0.30-0.5 IU/mL Low Molecular Weight Heparin: Age 18+ Years 0.50-1.50 IU/mL Age 0-17 Years 0.50-1.00 IU/mL Licha Rehman MD LAB BLOOD ORDERABLES Final Res ult Performing Organization Address City/[facility]/ZIP Co de Phone Number [facility] [address] [place] [address], [place] [phone] * D-Dimer (03/12/2025 3:43 AM EDT) D-Dimer, Quant (D-DU) <150 <231 ng/mL DDU LAB COAGULATION METHOD 03/12/2025 11:58 AM EDT [facility] Blood Venous blood specimen / Unknown Venipuncture / Unknown 03/12/2025 3:43 AM EDT 03/12/2025 3:50 AM EDT Narrative [facility] - 03/12/2025 11:58 AM EDT [...] Res ult Performing Organization Address [facility]/ZIP Co de Phone Number [facility] [address] [place] [address], * Magnesium (03/12/2025 3:43 AM EDT) Only the most recent of2 resultswithin the time period is included. Magnesium 2.0 1.7 - 2.8 mg/dL LAB CHEMISTRY METHOD 03/12/2025 4:30 AM EDT [facility] Blood Venous blood specimen / Unknown Venipuncture / Unknown 03/12/2025 3:43 AM EDT 03/12/2025 3:50 AM EDT us Licha Rehamn MD LAB BLOOD ORDERABLES Final Res ult [facility] [address] [place] [address], [place] [phone] * (ABNORMAL) Basic metabolic panel (03/12/2025 3:43 AM EDT) Sodium 138 135 - 145 mmol/L LAB CHEMISTRY METHOD 03/12/2025 4:30 AM EDT [facility] Potassium 3.9 3.5 - 5.1 mmol/L LAB CHEMISTRY METHOD 03/12/2025 4:30 AM EDT [facility] Chloride 105 98 - 107 mmol/L LAB CHEMISTRY METHOD 03/12/2025 4:30 AM EDT [facility] CO2 26 24 - 32 mmol/L LAB CHEMISTRY METHOD 03/12/2025 4:30 AM EDT [facility] Anion Gap 7 5 - 14 LAB CHEMISTRY METHOD 03/12/2025 4:30 AM EDT [facility] Glucose 120 70 - 199 mg/dL LAB CHEMISTRY METHOD 03/12/2025 4:30 AM EDT [facility] BUN 14 7 - 17 mg/dL LAB CHEMISTRY METHOD 03/12/2025 4:30 AM EDT [facility] Creatinine 0.50 0.50 - 1.00 mg/dL LAB CHEMISTRY METHOD 03/12/2025 4:30 AM EDT [facility] eGFR 104 >=60 mL/min/1. 73m2 LAB CHEMISTRY METHOD 03/12/2025 4:30 AM EDT [facility] Comment:Calculation based on the Chronic Kidney Disease Epidemiology Collaboration (CKD-EPI) equation refit without adjustment for race. BUN/Creatinine Ratio 28.0(H) 12.0 - 20.0 LAB CHEMISTRY METHOD 03/12/2025 4:30 AM EDT [facility] Calcium 8.4 8.4 - 10.2 mg/dL LAB CHEMISTRY METHOD 03/12/2025 4:30 AM EDT [facility] Blood Venous blood specimen / Unknown Venipuncture / Unknown 03/12/2025 3:43 AM EDT 03/12/2025 3:50 AM EDT us Licha Rehman MD LAB BLOOD ORDERABLES Final Res ult [facility] [address] [place] [address], [place] [phone] * LEFT HEART CATH / CORONARY ANGIOGRAPHY [...] guided vascular access Iliac arteriogram Access site: [facility] Procedure details: The risks, benefits, complications, treatment options, and expected outcomes were discussed with the patient and/or family prior to the procedure. The patient and/or family concurred with the proposed plan, giving informed consent. Patient was evaluated for moderate sedation and felt to be an appropriate candidate. She was brought to the metallurgical lab technician for cardiac catherization. She was prepped and draped in the usual manner. A time out was performed. The right common femoral artery was accessed under local anesthesia using a micropuncture technique. Ultrasound guidance was used to confirm appropriate access and needle entering the QUILL REAMER. A 6 Green[place]ic arterial sheath was inserted without difficulty. Diagnostic coronary angiography was performed using standard Jose catheters. A 6 Greenlandic JL 4 catheter was used to engage the left main coronary artery. A 6 Green[place]ic JR 4 catheter was used to engage [...] the procedure. Estimated blood loss: <10 cc us Bela Barclay MD CV CARDIAC CATH PROCEDURES [...] ED Physician in the absence of a valve grinder: yes Previous ECG: Previous ECG: Compared to [...] Time - STAT (03/11/2025 9:01 PM EDT) Pathologist [facility] aPTT 28.8 25.0 - 37.0 sec LAB COAGULATION METHOD 03/11/2025 9:31 PM EDT [facility] Blood Venous blood specimen / Unknown Venipuncture / Unknown 03/11/2025 9:01 PM EDT 03/11/2025 9:09 PM EDT us Cyrus Staples MD LAB BLOOD ORDERABLES Final Res ult [facility] [address] [place] [address], [place] [phone] * Prothrombin time with INR (03/11/2025 8:55 PM EDT) Protime 10.9 10.5 - 13.3 sec LAB COAGULATION METHOD 03/11/2025 9:28 PM EDT [facility] INR 1.0 0.8 - 1.1 LAB COAGULATION METHOD 03/11/2025 9:28 PM EDT [facility] Blood Venous blood specimen / Unknown Venipuncture / Unknown 03/11/2025 8:55 PM EDT 03/11/2025 9:01 PM EDT Narrative [facility] - 03/11/2025 9:28 PM EDT Std. Therapy 2.0-3.0 INR High Dose Therapy 3.0-4.5 INR Ranges may vary depending on clinical indications and protocol. us Cyrus Staples MD LAB BLOOD ORDERABLES Final Res ult [facility] [address] [place] [address], [place] [phone] * Type and screen (03/11/2025 8:55 PM EDT) ABO Group O 03/11/2025 10:30 PM EDT [facility] Rh Type Positive 03/11/2025 10:30 PM EDT [facility] Antibody Screen Negative 03/11/2025 10:30 PM EDT [facility] Blood Venous blood specimen / Unknown Venipuncture / Unknown 03/11/2025 8:55 PM EDT 03/11/2025 9:01 PM EDT us Cyrus Staples MD LAB BLOOD BANK TEST ORDERABLES Final Result [facility] [address] [place] [address], [place] [phone] * (ABNORMAL) Comprehensive metabolic panel (03/11/2025 8:55 PM EDT) [facility] Sodium 136 135 - 145 mmol/L LAB CHEMISTRY METHOD 03/11/2025 9:58 PM EDT [facility] Potassium 3.8 3.5 - 5.1 mmol/L LAB CHEMISTRY METHOD 03/11/2025 9:58 PM EDT [facility] Comment:Slightly Hemolyzed Chloride 102 98 - 107 mmol/L LAB CHEMISTRY METHOD 03/11/2025 9:58 PM EDT [facility] CO2 26 24 - 32 mmol/L LAB CHEMISTRY METHOD 03/11/2025 9:58 PM EDT [facility] Anion Gap 8 5 - 14 LAB CHEMISTRY METHOD 03/11/2025 9:58 PM EDT [facility] Glucose 155 70 - 199 mg/dL LAB CHEMISTRY METHOD 03/11[facility]25 [facility] BUN 16 7 - 17 mg/dL LAB CHEMISTRY METHOD 03/11/2025 9:58 PM EDT [facility] Creatinine 0.70 0.50 - 1.00 mg/dL LAB CHEMISTRY METHOD 03/11/2025 9:58 PM T [facility] eGFR 96 >=60 mL/min/1. 73m2 LAB CHEMISTRY METHOD 03/11/2025 9:58 PM T [facility] Comment:Calculation based on the Chronic Kidney Disease Epidemiology Collaboration (CKD-EPI) equation refit without adjustment for race. BUN/Creatinine Ratio 22.9(H) 12.0 - 20.0 LAB CHEMISTRY METHOD 03/11/2025 9:58 PM EDT [facility] Calcium 9.1 8.4 - 10.2 mg/dL LAB CHEMISTRY METHOD 03/11/2025 9:58 PM [facility] AST (SGOT) 22 5 - 40 unit/L LAB CHEMISTRY METHOD 03/11/2025 9:58 PM EDT [facility] Comment:Slightly Hemolyzed ALT (SGPT) 11 7 - 52 unit/L LAB CHEMISTRY METHOD 03/11/2025 9:58 PM EDT [facility] Alkaline Phosphatase 86 34 - 104 unit/L LAB CHEMISTRY METHOD 03/11/2025 9:58 PM EDT [facility] Total Protein 7.2 6.4 - 8.5 g/dL LAB CHEMISTRY METHOD 03/11/2025 9:58 PM EDT [facility] Albumin 4.2 3.5 - 5.0 g/dL LAB CHEMISTRY METHOD 03/11/2025 9:58 PM EDT [facility] Total Bilirubin 0.3 0.3 - 1.0 mg/dL LAB CHEMISTRY METHOD 03/11/2025 9:58 PM EDT [facility] Blood Venous blood specimen / Unknown Venipuncture / Unknown 03/11/2025 8:55 PM EDT 03/11/2025 9:01 PM EDT us Cyrus Staples MD LAB BLOOD ORDERABLES Final Res ult [facility] [address] [place] [address], [place] [phone] * ECG 12 lead (03/11/2025 8:54 PM EDT) Only the most recent of2 resultswithin the time period is included. Ventricular Rate ECG 78 BPM GEMUSE Atrial Rate 78 BPM GEMUSE P-R Interval 136 ms GEMUSE QRS Duration 94 ms GEMUSE Q-T Interval 426 ms GEMUSE QTc 485 ms GEMUSE P Wave [place] 72 degrees GEMUSE R [place] 54 degrees GEMUSE T [place] 51 degrees GEMUSE ECG Interpretation Normal sinus rhythm Prolonged QTc Abnormal ECG When compared with ECG of 11-MAR-2025 20:44, (Unconfirmed) No significant change was found Confirmed by Jenn Gallagher ([id number]) on 03/12/2025 9:17:14 AM GEMUSE 03/11/2025 8:54 PM EDT 03/12/2025 9:17 AM EDT us Cyrus Staples MD ECG ORDERABLES Final Result GEMUSE * PA CRITICAL CARE 30-74 MINUTES (03/11/2025 8:40 PM [...] CLINIC/BEDSIDE ORDERABLES F inal Result * External Colonoscopy [...] Signed Date: 05/29/2024 15:36 ET Workstation ID: [id number] Transcribed By: Self Edit Transcribed Date: 05/29/2024 15:30 ET Narrative 05/29/2024 3:36 PM EST EXAM: SCREENING MAMMOGRAPHY, BILATERAL HISTORY: SCREENING. Bilateral reduction surgery 2020 COMPARISON: 05/09/2023, 05/05/2022, 02/16/2021, 02/14/2020 TECHNIQUE: Synthesized CC and MLO projections of each breast. Tomosynthesis of each breast in the CC and MLO projections. ADDITIONAL IMAGING: None Computer-aided detection was employed with the [employer] AI 3-D. TISSUE DENSITY: There are scattered [...] None Computer-aided detection was employed with the [employer] AI 3-D. TISSUE DENSITY: There are scattered [...] Signed Date: 05/29/2024 15:36 ET Workstation ID: [id number] Transcribed By: Self Edit Transcribed Date: 05/29/2024 [...] currently active code status orders. Care Teams Phone Screener Relationship Specialty Start Date End Date Sachin Keller MD [address] [place] [id number] PCP - General Internal Medicine 05/12/24
--- OUTSIDE RECORDS SUMMARY | 2025-06-07 20:35 | XMS_ITS | Clinical Summary ---
Author Organization [facility], 1929–[address] [place] [address] Care Team Providers Care Warehouse Lead Name Role Phone Unavailable Primary Care Provider [...] 1 - Influenza standard series) 03/25/[address] [facility]
--- OUTSIDE RECORDS SUMMARY | 2025-06-07 20:36 | XMS_ITS | Patient Health Record ---
Author Organization [facility] Amy [place] Address [address] [place] [address] Care Team Providers Care Brine Tank Tender Name Role Phone Sachin Keller MD Primary Care Provider Unavailab Ismael Smith Unavailable [phone] Reason For Referral No Information Medications Medication SIG (Take, Route, Frequency, Duration) Notes Start Date End Date Status Cyanocobalamin Activ e Citalopram Hydrobromide Active Vitamin B 12 Not-Justin ing Problems No Known Problems Plan Of Treatment No Information Insurance Providers Payer Name Payer Address Payer Phone Subscriber Number Group Number Insured Name Patient Relationship to Insured Coverage Start Date Coverage End Date [facility] [address] [place] [address] [id number] Vincenzo Silva Other Medical (General) History Medical History History ICD Code Anemia Anxiety Surgical History Surgery Date(Month/Year) bladder surgery
--- OUTSIDE RECORDS SUMMARY | 2025-06-07 20:36 | XMS_ITS | Patient Health Record ---
Author Organization [facility] Address [address] [place], [place] [id number] Care Team Providers Care Distribution Technician Name Role Phone ELIANA ALVAREZ Primary Care Provider [place], NUR[facility] [phone] ALLERGIES No Known Allergies REASON FOR REFERRAL No Information MEDICATIONS Medication SIG (Take, Route, Frequency, Duration) Notes Start Date End Date Status BD Luer-Zara Syringe 25G X 1 3 ML USE ONCE WITH VITAMIN B-12 INJECTION for 1 Active Sucralfate 1 GM 1 tablet on an empty stomach Orally Four times a day for 30 days Active Betamethasone Dipropionate 0.05 % 1 application Externally twice a day for 14 days 11/23/2024 Active Nystatin 441712 UNIT/GM 1 application Ex ternally Twice a day for 30 day(s) 11/23/2024 Active Pantoprazole Sodium 40 MG 1 tablet Orall y Once a day for 90 day(s) 03/16/2024 Active Atorvastatin Calcium 40 MG 1 tablet Oral ly Once a day for 90 days Active Isosorbide Mononitrate ER 30 MG 1 tablet in the morning Orally Once a day for 90 days Active LORazepam 0.5 MG 1 tablet at bedtime as needed Orally Once a day 11/23/2024 Active amLODIPine Besylate 5 MG 1 tablet Orally Once a day for 90 days Active Aspirin 81 MG 1 tablet Orally Once a day Active traZODone HCl 50 MG TAKE 1 OR 2 TABLETS BY MOUTH EVERY DAY for 90 Active EXEL SYRINGE 3 mL 25 gauge x 1 USE WITH VITAMIN B12 INJECTIONS MISCELLANEOUS every 30 days for 90 days 11/22/2022 Active Cyanocobalamin 1000 MCG/ML INJECT 0.1 ML IN THE MUSCLE EVERY MONTH Injection 11/29/2022 Active IMMUNIZATIONS Vaccine Route Administration Date Status Comme nts Pfizer COVID-19,mRNA, LNP-S, PF, 30mcg/0.3mL dose Unknown 09/10/2020 Administered SARSCOV2 VAC 30 MCG TRS-SUCR Pfizer Unknown 10/01/2020 Administered SARSCOV2 VAC BVL 3MCG/0.2ML Pfizer Unknown 06/09/2021 Administered TDAP IM Intramuscular 03/16/2024 Administered SOCIAL HISTORY Tobacco Use: Social History Observation Description Date Details (start date - stop date) Never Smoker NA - NA Sex Assigned At : Social History Observation Description Sex Assigned At Unknown Smoking Question Answer Notes Are you a: never smoker PROBLEMS Problem Type ICD Code Onset Dates Problem Status W/U Status Risk SNOMED Code Notes Problem Generalized anxiety disorder (F41.1) Active confirmed 54004500 Problem B12 deficiency (E53.8) Active confirmed 670336605 Problem Constipation, unspecified constipation type (K59.00) Active confirmed 32628671 Problem Panic attacks (F41.0) Active confirmed 734073738 Problem Chronic GERD (K21.9) Active confirmed 121459955 Problem Coronary vasospasm (I20.1) Active confirmed 39492325 Problem Takotsubo cardiomyopathy (I51.81) Active confirmed 794292157 Problem Abnormal chest xray (R93.89) Active confirmed 0464228450 Problem 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 13 and Chronic constipation K59.[address] [address] 07/08/2024 [facility] [address] [place] [address] 07/09/2024 [facility] Closed wedge fractur e of thoracic vertebra, unspecified thoracic vertebral level, initial encounter S22.000A [facility] [address] [place] [address] 11/22/2024 [facility] [address] [place] [address] 11/23/2024 [facility] Rash R21 and Generalized anxiety disorder F41.1 [facility] [address] [place] [address] 01/28/2025 [facility] [address] [place] [address] 01/28/2025 [facility] Palpitations R00.2 ; Generalized anxiety disorder F41.1 ; Abnormal CXR R93.89 and Acute cough R05.1 [facility] [address] [place] [address] 01/31/2025 [facility] [address] [place] [address] 01/31/2025 [facility] Chronic GERD K21.9 [facility] [address] [place] [address] 02/06/2025 [facility] Palpitations R00.2 [facility] [address] [place] [address] 02/06/2025 [facility] [address] [place] [address] 02/19/2025 [facility] Generalized anxiety disorder F41.1 ; Palpitations R00.2 and Abnormal chest xray R93.89 [facility] [address] [place] [address] 04/01/2025 [facility] [address] [place] [address] 04/03/2025 [facility] Coronary vasospasm I20.1 ; Takotsubo cardiomyopathy I51.81 and Generalized anxiety disorder F41.[address] [address] 04/03/2025 ELIANA ANTONIO [facility] [address] [place] [address] 04/03/2025 ELIANA [facility] [address] [place] [address], [place] [address] 05/03/2025 [facility] [address] [place] [address], [place] [address] 05/07/2025 [facility] [address] [place] [address], [place] [address] 05/20/2025 [facility] [address] [place] [address], [place] [address] 05/28/2025 [facility] [address] [place] [address], [place] [address] 05/28/[address] [place] [address] 05/28/2025 [facility]IANA [facility] Encounter Date Diagnosis Assessment Notes Treatment Notes Treatment Clinical Notes Section Notes 07/03/2024 Epigastric pain (ICD-10 - R10.13) 1. Epigastric pain: Question dyspeptic, question related to constipation. I gave her some Voquenza samples to try. I have asked her to get a KUB to see if she is significantly constipated as well. Further recommendations pending these results 07/03/2024 Chronic constipation (ICD-10 - K59.09) 1. Epigastric pain: Question dyspeptic, question related to constipation. I gave her some Voquenza samples to try. I have asked her to get a KUB to see if she is significantly constipated as well. Further recommendations pending these results 07/09/2024 Closed wedge fracture of thoracic vertebra, unspecified thoracic vertebral level, initial encounter (ICD-10 - S22.000A) 1. Thoracic Compression Fractures : ? Osteoporosis related Will check MRI and connsider Bone density 11/23/2024 Rash (ICD-10 - R21) 1. Rash: Will treat with 2 weeks of betamethasone and nystatin cream. She will let me know if she is not improving with these measures 2. Anxiety: Coping with family stress. Continue Pristiq and occasional lorazepam use 11/23/2024 Generalized anxiety disorder (ICD-10 - F41.1) 1. Rash: Will treat with 2 weeks of betamethasone and nystatin cream. She will let me know if she is not improving with these measures 2. Anxiety: Coping with family stress. Continue Pristiq and occasional lorazepam use 01/28/2025 Palpitations (ICD-10 - R00.2) Hospital records reviewed at length 1. Palpitations: Will check a 1 week Holter monitor to better assess what is occurring with her heart rhythm when she is symptomatic. She did not have symptoms while in the emergency room on either occasion. I encouraged her to exercise and go about her usual activities 2. Generalized anxiety: Will increase the Pristiq to 100 mg and observe response 3. Abnormal chest x-ray: In first ER visit chest x-ray was read as showing interstitial fibrosis. Last x-ray here was a little over 2 years ago and had no such findings. We will check a CAT scan of the chest to better assess 01/28/2025 Generalized anxiety disorder (ICD-10 - F41.1) Hospital records reviewed at length 1. Palpitations: Will check a 1 week Holter monitor to better assess what is occurring with her heart rhythm when she is symptomatic. She did not have symptoms while in the emergency room on either occasion. I encouraged her to exercise and go about her usual activities 2. Generalized anxiety: Will increase the Pristiq to 100 mg and observe response 3. Abnormal chest x-ray: In first ER visit chest x-ray was read as showing interstitial fibrosis. Last x-ray here was a little over 2 years ago and had no such findings. We will check a CAT scan of the chest to better assess 01/31/2025 Chronic GERD (ICD-10 - K21.9) 02/06/2025 Palpitations (ICD-10 - R00.2) 02/19/2025 Palpitations (ICD-10 - R00.2) 1. Generalized anxiety disorder: Appears better with higher dose of Pristiq. She has not needed lorazepam but has not in case of panic attacks. Will continue same and recheck in the fall 2. Palpitations: Appears better with low-dose metoprolol. She had ectopy and some short runs of SVT on her Holter. We will monitor on low-dose beta-blockade 3. Abnormal chest x-ray: ER film and question pulmonary fibrosis. CT scan of the chest showed no evidence only a small area of bronchiolitis. No further treatment at this time 02/19/2025 Generalized anxiety disorder (ICD-10 - F41.1) 1. Generalized anxiety disorder: Appears better with higher dose of Pristiq. She has not needed lorazepam but has not in case of panic attacks. Will continue same and recheck in the fall 2. Palpitations: Appears better with low-dose metoprolol. She had ectopy and some short runs of SVT on her Holter. We will monitor on low-dose beta-blockade 3. Abnormal chest x-ray: ER film and question pulmonary fibrosis. CT scan of the chest showed no evidence only a small area of bronchiolitis. No further treatment at this time 04/03/2025 Coronary vasospasm (ICD-10 - I20.1) Hospital records reviewed at length 1. Coronary vasospasm with mild underlying coronary disease. Will observe on amlodipine and to Sorbide. Aspirin and atorvastatin were also continued for now. 2. Takotsubo cardiomyopathy: Repeat echo is planned through cardiology. She had mild wall motion abnormalities in the apical region with an EF of 50 to 60% on echo at [facility]. 3. Generalized anxiety disorder: I will taper [...] of 50 to 60% on echo at [facility]. 3. Generalized anxiety disorder: I will taper Pristiq and try Paxil starting at 20 mg/day. Will plan to reassess in 3 to 4 weeks and she will call sooner if needed 01/28/2025 Abnormal CXR (ICD-10 - R93.89) Hospital records reviewed at length 1. Palpitations: Will check a 1 week Holter monitor to better assess what is occurring with her heart rhythm when she is symptomatic. She did not have symptoms while in the emergency room on either occasion. I encouraged her to exercise and go about her usual activities 2. Generalized anxiety: Will increase the Pristiq to 100 mg and observe response 3. Abnormal chest x-ray: In first ER visit chest x-ray was read as showing interstitial fibrosis. Last x-ray here was a little over 2 years ago and had no such findings. We will check a CAT scan of the chest to better assess 02/19/2025 Abnormal chest xray (ICD-10 - R93.89) 1. Generalized anxiety disorder: Appears better with higher dose of Pristiq. She has not needed lorazepam but has not in case of panic attacks. Will continue same and recheck in the fall 2. Palpitations: Appears better with low-dose metoprolol. She had ectopy and some short runs of SVT on her Holter. We will monitor on low-dose beta-blockade 3. Abnormal chest x-ray: ER film and question pulmonary fibrosis. CT scan of the chest showed no evidence only a small area of bronchiolitis. No further treatment at this time 04/03/2025 Generalized anxiety disorder (ICD-10 - F41.1) [...] of 50 to 60% on echo at [facility]. 3. Generalized anxiety disorder: I will taper Pristiq and try Paxil starting at 20 mg/day. Will plan to reassess in 3 to 4 weeks and she will call sooner if needed 01/28/2025 Acute cough (ICD-10 - R05.1) Hospital records reviewed at length 1. Palpitations: Will check a 1 week Holter monitor to better assess what is occurring with her heart rhythm when she is symptomatic. She did not have symptoms while in the emergency room on either occasion. I encouraged her to exercise and go about her usual activities 2. Generalized anxiety: Will increase the Pristiq to 100 mg and observe response 3. Abnormal chest x-ray: In first ER visit chest x-ray was read as showing interstitial fibrosis. Last x-ray here was a little over 2 years ago and had no such findings. We will check a CAT scan of the chest to better assess PLAN OF TREATMENT Future Test Test Name Order Date HEMOGLOBIN A1C 08/17/2023 Next Appt Details Provider Name:ELIANA ALVAREZ , 08/07/2025 03:15:00 PM, [address] [facility], [place], [address], Insurance Providers Payer Name Payer Address Payer Phone Subscriber Number Group Number Insured Name Patient Relationship to Insured Coverage Start Date Coverage End Date [employer]IC[employer] [address] [place] [phone] [id number] LARA MCCORMICK Self - patient is the insured [facility] [address] [place], [place] [id number] LARA MCCORMICK Self - patient is the insured 8 MEDICAL (GENERAL) HISTORY Medical History History ICD Code Disease : B12 Deficiency, psychiatric, Disease : Anxiety, Headaches, Malaise and fatigue Pernicious anemia broken heart syndrome Surgical History Surgery Date(Month/Year) Hospitalization History Reason Date(Month/Year) [facility] x 2- elevated heart rate 01/24, 01/26/25 [facility]- cardiac/anxiety 03/11/25
== END 2025-06-07 14:27 | disposition home or self-care (01) ==
LOC: HO.HCS 13:56
PROVIDERS: PCP Internal Medicine
DX: I51.81 Takotsubo syndrome (principal); Z98.890 Other specified postprocedural states; I25.10 Atherosclerotic heart disease of native coronary artery without angina pectoris
CPT/HCPCS: 99214; G2211

== ENCOUNTER → 2025-06-07 13:56 | Outpatient (BNVA) | payer MEDICARE, OTHER, SELFPAY | PROVIDERS: PCP Internal Medicine | DX: I51.81 Takotsubo syndrome (principal); I25.10 Atherosclerotic heart disease of native coronary artery without angina pectoris; I10 Essential (primary) hypertension; Z98.890 Other specified postprocedural states | CPT/HCPCS: 99212 ==